=== PATIENT | female | born 1980 | race Caucasian/White ===

== ENCOUNTER → 2016-06-01 | Outpatient (CLI) | payer BC ==
[~2016-06-01] MED LIST: CETI10TA84 PO; ETHY1TAB6 PO; LEVOIUD INT UTER; LXP10 PO; MURENA; NITROGLYCERIN OINT TOP; PRENTAB26 PO; TRAM-453 PO; TRMO2580 TOP
--- NOTE | 2016-06-02 12:48 | MAMMOGRAPHY REPORT ---
BILATERAL FIRST EVER DIGITAL SCREENING MAMMOGRAM TOMOSYNTHESIS WITH CAD: 06/01/2016 CLINICAL HISTORY: Baseline examination. TECHNIQUE: Breast tomosynthesis in addition to standard 2D mammography was performed. Current study was also evaluated with a Computer Aided Detection (CAD) system. COMPARISON: No prior exams were available for comparison. BREAST COMPOSITION: There are scattered areas of fibroglandular density in both breasts. FINDINGS: No suspicious mass, architectural distortion or cluster of microcalcifications is seen. IMPRESSION: ACR BI-RADS CATEGORY 1: NEGATIVE There is no mammographic evidence of malignancy. A 5 year screening mammogram is recommended. The p atient will receive written notification of the results. Approximately 10% of breast cancers are not detected with mammography. A negative mammographic repor t should not delay biopsy if a clinically suggestive mass is present. June barrientos/juan f:06/01/2016 17:10:30 Retail Inventory Control Clerk: Meghan DIOP)(Darnell), [facility] letter sent: Normal 1/2 BI-RADS Code: ACR BI-RADS Category 1: Negative
== END | disposition home or self-care (01) ==
LOC: C.MAMM 15:16
PROVIDERS: ATTEND Plastic Surgery
DX: Z12.31 Encounter for screening mammogram for malignant neoplasm of breast (principal)

== ENCOUNTER 2016-08-04 10:30 | Observation (INO) | payer BC ==
[2016-07-29 09:25] VITALS: BMI 35.0
--- NOTE | 2016-07-29 09:45 | PAT Medication Instructions ---
Service Date Jul 29, 2016. Current Home Medication List Cetirizine (Zyrtec), 10 MG PO QAM Escitalopram Oxalate (Escitalopram Oxalate), 5 MG PO QAM Levonorgestrel (Iud) (Mirena), 1 DOSE INT UTER Triamcinolone Acetonide (Topic (Triamcinolone Acet 0.025%), 1 APPLN TOP PRN [Nitroglycerin Oint], 1 DOSE TOP PRN Medication Instructions For Your Scheduled Surgery - Check with surgeon for instructions: Levonorgestrel (Iud) (Mirena), 1 DOSE INT UTER - Hold the following medications 24 hours prior to surgery: [Nitroglycerin Oint], 1 DOSE TOP PRN Triamcinolone Acetonide (Topic (Triamcinolone Acet 0.025%), 1 APPLN TOP PRN - Hold the following medications the morning of surgery: Cetirizine (Zyrtec), 10 MG PO QAM - Take the following medications the morning of surgery with a sip of water: Escitalopram Oxalate (Escitalopram Oxalate), 5 MG PO QAM If you have any questions please call us at [phone] or [phone] or [phone]
[2016-07-29 10:11] LABS: BASO % 0.3 %; BASO ABS # 0.02 K/uL (0-0.2); COMPLETE YES; HEMATOCRIT 40.5 % (37-47); IG% 0.1 %; LYMPH % 31.8 %; LYMPH ABS # 2.24 K/uL (1.2-3.4); MEAN CELL VOLUME 87.5 fL (80-100); MEAN CORPUSCULAR HEMOGLOBIN 29.8 pg (25-34); MEAN CORPUSCULAR HGB CONC 34.1 g/dl (32-36); MONO % 6.5 %; NEUT % 59.3 %; PLATELET COUNT 281 K/uL (130-400); RED BLOOD COUNT 4.63 M/uL (4.2-5.4); WHITE BLOOD COUNT 7.04 K/uL (4.8-10.8)
[2016-07-29 10:22] LABS: PROTHROMBIN TIME (PATIENT) 10.2 SECONDS (9.0-12.0)
[2016-07-29 12:39] LABS: BUN/CREATININE RATIO 13.4 (10-20); CALCIUM 8.9 mg/dl (8.5-10.1); CREATININE 0.79 mg/dl (0.60-1.20); POTASSIUM 3.8 mmol/L (3.5-5.1)
[~2016-08-04] VITALS: Ht 167.6 cm; Wt 99.9 kg
[2016-08-04] VITALS (8 sets, daily range): BP systolic 101–133; BP diastolic 65–85; PULSE 72–99; TEMP 36.7–37.1; O2SAT 93–98; Ht 167.6 cm; Wt 99.9 kg
[~2016-08-04 10:30] MED LIST changes: +CEFAZOLIN 2000 MG/60 ML D5W IV SCH; +DEXAMETHASONE SOD INJ 4 MG/ML VIAL ONE; +ENOXAPARIN 40 MG/0.4 ML SYR SQ SCH; -ETHY1TAB6 PO; +FENTANYL CITRATE INJ 50 MCG/1 ML 2 ML VIAL ONE; +GLYCOPYRROLATE INJ 0.2 MG/ML VIAL ONE; +LACTATED RINGER'S 1000ML 1,000 ML IV SCH; +LIDOCAINE HCL 2% 2 ML VIAL (20MG/ML) ONE; +MIDAZOLAM HCL 1 MG/ML 2ML VIAL ONE; -MURENA; +NEOSTIGMINE METHYLSULFATE 5 MG/5 ML SYR ONE; +ONDANSETRON INJ 2 MG/ML 2 ML VIAL ONE; -PRENTAB26 PO; +PROPOFOL IV EMULSION 10 MG/ML 20 ML VIAL IV ONE; +ROCURONIUM BROMIDE 10 MG/ML 5 ML VIAL ONE; -TRAM-453 PO
[2016-08-04] MEDS ORDERED: ACETAMINOPHEN 1000 MG/100 ML IV IV ONE (11:47)
[2016-08-04] MEDS ORDERED: LIDOCAINE/EPINEPHRINE 1% 20 ML VIAL ONE (12:17)
[2016-08-04] MEDS ORDERED: CEFAZOLIN SOD 1 GM VIAL ONE (12:18)
[2016-08-04] MEDS ORDERED: BUPIVACAINE 0.25% 30 ML VIAL ONE (12:19)
[2016-08-04] MEDS ORDERED: BACITRACIN 50000 UNIT VIAL ONE (12:19)
--- NOTE | 2016-08-04 12:35 | History & Physical Bridge Note ---
H&P Re-Evaluation Bridge Note: I have examined the patient, reviewed the History & Physical and in the interval since the performance of the History & Physical I have noted the following changes of clinical significance: No changes noted
[2016-08-04] MEDS ORDERED: NALOXONE HCL 0.4 MG/1 ML VIAL/CARP IV PRN (15:00)
[2016-08-04] MEDS ORDERED: ONDANSETRON INJ 2 MG/ML 2 ML VIAL IV PRN ×2 (15:00→16:15)
[2016-08-04] MEDS ORDERED: FLUMAZENIL 0.1 MG/1 ML 10 ML VIAL IV PRN (15:00)
[2016-08-04] MEDS ORDERED: LABETALOL HCL IV 5 MG/ML 20ML IV PRN (15:00)
[2016-08-04] MEDS ORDERED: ATROPINE SULFATE 0.1 MG/ML 5ML SYR IV PRN (15:00)
[2016-08-04] MEDS ORDERED: PROMETHAZINE HCL INJ 12.5 MG in SODIUM CHLORIDE 0.9% 50ML 50 ML IV PRN ×2 (15:00→16:15)
[2016-08-04] MEDS ORDERED: EpHEDrine SULFATE INJ 50 MG/ML AMP IV PRN (15:00)
[2016-08-04] MEDS ORDERED: HYDROmorphone INJ 2 MG/ML SYR/VIAL ONE (15:53)
[2016-08-04] MEDS ORDERED: ONDANSETRON INJ 2 MG/ML 2 ML VIAL ONE (15:53)
--- NOTE | 2016-08-04 16:01 | [facility] Post Operative Brief Note ---
Immediate Operative Summary Operative Date Aug 04, 2016. Pre-Operative Diagnosis Bilateral breast hypertrophy Post-Operative Diagnosis Same as preoperative diagnosis Procedure(s) Performed Bilateral Symptomatic Breast Reduction Surgeon Dr. Argelia Perez Restorative Care Technician Surgeon(s) Nicolle Díaz PA-C Estimated Blood Loss 50ML Findings B/L NACs pink and viable bilaterally Specimens A. left breast skin and tissue weight 648 grams B. right breast skin and tissue weight 636 grams Drains WEN x2 Anesthesia GET Complication(s) None Disposition Recovery Room / PACU
[2016-08-04] MEDS ORDERED: OXYCODONE/ACETAMINOPHEN 5-325 TAB PO PRN (16:15)
[2016-08-04] MEDS ORDERED: OXAZEPAM 10MG CAP PO PRN (16:15)
[2016-08-04] MEDS ORDERED: DiphenhydrAMINE HCL 50 MG/ML VIAL IV PRN (16:15)
[2016-08-04] MEDS ORDERED: MoRPHine SULFATE 2 MG/ML CARP IV PRN ×3 (16:15)
[2016-08-04] MEDS: HYDROmorphone INJ 1 MG/ML SYR IV PRN ×2 (16:30→16:35)
[2016-08-04] MEDS ORDERED: IV FLUIDS COMPLETED PRN (16:30)
--- NOTE | 2016-08-04 16:48 | Anesthesiology Progress Note ---
Anesthesia Post Op Note Date & Time Aug 04, 2016 at 16:48 Vital Signs Pain Intensity: 4 Vital Signs Past 12 Hours Date Time Temp Pulse Resp B/P (MAP) Pulse Ox O2 Delivery O2 Flow Rate FiO2 08/04/16 16:45 95 18 126/76 100 Oxymask 3 08/04/16 16:35 100 18 124/81 100 Oxymask 5 08/04/16 16:25 100 12 126/73 100 Oxymask 10 08/04/16 16:15 36.2 104 12 122/82 100 Oxymask 10 08/04/16 11:07 37.1 72 18 104/72 (83) 97 Room Air Notes Mental Status: alert / awake / arousable, participated in evaluation Pt Amnestic to Procedure: Yes Nausea / Vomiting: adequately controlled Pain: adequately controlled Airway Patency, RR, SpO2: stable & adequate BP & HR: stable & adequate Hydration State: stable & adequate Anesthetic Complications: no major complications apparent
[2016-08-04] MEDS: LACTATED RINGER'S 1000ML 1,000 ML IV SCH (19:02)
[2016-08-04] MEDS: OXYCODONE/ACETAMINOPHEN 5-325 TAB PO PRN (19:03)
--- NOTE | 2016-08-04 19:52 | Progress Note ---
Progress Note Date of Service Aug 04, 2016. Progress Note Post op check Doing well. Complains of right breast pain, incisional burning afebrile VSS Dressings c/d/i NACs pink and viable bilaterally, sensation intact No hematomas JPs minimal, serosanguinous Stable post op observe overnight
[2016-08-04] MEDS: CEFAZOLIN IV 2,000 MG in DEXTROSE 5% 50ML 50 ML IV SCH (20:24)
[2016-08-04] MEDS: ACETAMINOPHEN 325 MG TAB PO PRN (23:51)
[2016-08-05 03:11] VITALS: BP 108/68; PULSE 77; TEMP 36.8; O2SAT 94
[2016-08-05] MEDS: CEFAZOLIN IV 2,000 MG in DEXTROSE 5% 50ML 50 ML IV SCH (03:56)
[2016-08-05] MEDS: LACTATED RINGER'S 1000ML 1,000 ML IV SCH ×2 (03:57→16:42)
[2016-08-05 06:58] VITALS: BP 109/76; PULSE 66; TEMP 36.8; O2SAT 97
[2016-08-05 07:15] VITALS: BP 96/63; PULSE 66
--- NOTE | 2016-08-05 07:56 | Anesthesiology Progress Note ---
Anesthesia Post Op Note Date & Time Aug 05, 2016 at 07:54 Vital Signs Pain Intensity: 2.0 Vital Signs Past 12 Hours Date Time Temp Pulse Resp B/P (MAP) Pulse Ox O2 Delivery O2 Flow Rate FiO2 08/05/16 07:42 Room Air 08/05/16 03:11 36.8 77 14 108/68 (81) 94 Room Air 08/05/16 00:00 Room Air 08/04/16 23:23 36.7 82 16 101/65 (77) 93 Room Air 08/04/16 20:18 36.7 82 16 110/69 (83) 94 Room Air Notes Mental Status: alert / awake / arousable, participated in evaluation Pt Amnestic to Procedure: Yes Nausea / Vomiting: adequately controlled Pain: adequately controlled Airway Patency, RR, SpO2: stable & adequate BP & HR: stable & adequate Hydration State: stable & adequate Anesthetic Complications: no major complications apparent Pt states that she did well with anesthesia - denies any PONV. However she has been light headed upon standing since surgery. She states that she has even passed out. Nurse was in the room at this time and stated that her blood pressure has been low but that it is normal for the patient. Patient has been getting IV fluids as well as eating and drinking. Medicine is following.
--- NOTE | 2016-08-05 08:00 | Surgery Progress Note ---
Surgery Progress Note Date of Service Aug 05, 2016. Subjective Post OP Day: 1 + feeling well, + pain controlled, + diet (regular), No nausea, No vomiting patient reports syncopal episode this AM. States she has gotten out of bed once since surgery and almost immediately felt lightheaded. Is tolerating regular diet and pain controlled on acetaminophen Objective Vital Signs: Date Time Temp Pulse Resp B/P (MAP) Pulse Ox O2 Delivery O2 Flow Rate FiO2 08/05/16 07:42 Room Air 08/05/16 07:15 66 16 96/63 (74) 08/05/16 06:58 36.8 66 16 109/76 (87) 97 Room Air 08/05/16 03:11 36.8 77 14 108/68 (81) 94 Room Air 08/05/16 00:00 Room Air 08/04/16 23:23 36.7 82 16 101/65 (77) 93 Room Air 08/04/16 20:18 36.7 82 16 110/69 (83) 94 Room Air 08/04/16 19:14 36.8 90 16 119/68 (85) 95 Room Air 08/04/16 18:15 36.8 93 16 133/77 (95) 94 Room Air 08/04/16 17:49 36.8 91 18 123/79 (94) 93 Room Air 08/04/16 17:30 98 Room Air 08/04/16 17:16 36.9 99 18 128/85 (99) 98 Nasal Cannula 08/04/16 17:15 Room Air Oxymask 08/04/16 17:05 92 18 116/81 100 Oxymask 3 08/04/16 16:55 36.3 89 18 125/77 100 Oxymask 3 08/04/16 16:45 95 18 126/76 100 Oxymask 3 08/04/16 16:35 100 18 124/81 100 Oxymask 5 08/04/16 16:25 100 12 126/73 100 Oxymask 10 08/04/16 16:15 36.2 104 12 122/82 100 Oxymask 10 08/04/16 11:07 37.1 72 18 104/72 (83) 97 Room Air Physical Exam: Lavell drainage (scant serous and bloody drainage) General Appearance: WD/WN, no apparent distress Incision(s): clean, dry, intact, no erythema, findings (nipples pink with sensation bilaterally ) Laboratory Results: Results Past 24 Hours Test 08/04/16 11:27 Range/Units Bedside Urine Test NEG NEG Assessment & Plan s/p bilateral breast reduction 1. syncopal episode this AM. Will check CBC, BMP and orthostatic BP. If normal and patient able to ambulate in halls OK later today can go home 2. drains removed
--- NOTE | 2016-08-05 08:02 | Discharge Instructions ---
Discharge Instructions Date of Service Aug 05, 2016. Admission Reason for Admission: Breast Hypertrophy Discharge Discharge Diagnosis / Problem: breast hypertrophy Discharge Goals Goal(s): Decrease discomfort Activity Recommendations Activity Limitations: per Instructions/Follow-up section ACTIVITY RECOMMENDATIONS: __Normal activities _x_No bending, lifting or straining __No driving __Driving allowed when you are off pain medications _x_Walking permitted __You should have help at home for ___ days DRESSINGS: __No dressings required _x_Keep dressings dry/in place until first office visit __Remove dressings ___ and leave dressings off __Apply ice ___ days __Remove dressings and reapply garment __Apply antibiotic ointment (Bacitracin, Neosporin, etc) to wounds 3-4 times/ day for 10 days BATHING: _x_Keep dressings dry _x_Sponge bathing permitted __Showering permitted _x_No swimming, hot tubs or soaking in a tub MEDICATIONS: Resume previous medications unless instructed otherwise by your surgeon. _x_Do not use aspirin, Motrin, Advil or Ibuprofen as these may promote bleeding. Please use Tylenol. _x_Prescription(s) provided: percocet was provided at your last office visit OTHER INSTRUCTIONS: __Record drain output 2-3 times per day SPECIAL CARE INSTRUCTIONS: * It is normal to have a mild fever after surgery. If your temperature is higher than 101.5 degrees F, please call the office at [phone]. * Constipation is a typical side effect of pain medication. An over-the- counter stool softener will help relieve this. * Leaking around surgical drains may occur and should not cause concern. Sometimes these drains become clogged. If this happens, remove the bulb and milk the clot out of the tube, then replace the bulb. * Drainage from wounds after liposuction is normal and should be expected. Garments will become soiled. You should protect furniture and bedding. This drainage should mostly subside within 2-3 days. Leave garments in place unless instructed to remove them. * If you have unusual drainage from a wound or are concerned you have an infection or have any questions or concerns, please call the office at [phone]. FOLLOW UP VISIT: If not already scheduled, please call the office, , when you return home after surgery to schedule an appointment to be seen in __1_ days. . Current Hospital Diet Patient's current hospital diet: Regular Diet Discharge Diet Recommended Diet: Regular Diet Procedures Procedures Performed: Bilateral Symptomatic Breast Reduction Pending Studies Studies pending at discharge: yes List of pending studies: pathology Medical Emergencies . Who to Call and When: Medical Emergencies: If at any time you feel your situation is an emergency, please call 911 immediately. . Non-Emergent Contact Non-Emergency issues call your: Primary Care Provider, Surgeon . "Provider Documentation" section prepared by Nicolle Díaz. . VTE Core Measure Inpt VTE Proph given/why not?: Enoxaparin (Lovenox)SQ, SCD's [place] Drug Monitoring Program Search Results: no issues identified
[2016-08-05] MEDS: ENOXAPARIN 40 MG/0.4 ML SYR SQ SCH (08:09)
[2016-08-05] MEDS: MULTIVITAMIN TAB PO SCH (08:09)
[2016-08-05] MEDS: CETIRIZINE HCL 10 MG TAB PO SCH (08:10)
[2016-08-05] MEDS: ESCITALOPRAM OXALATE 10 MG TAB PO SCH (08:10)
[2016-08-05 08:23] LABS: HEMATOCRIT 40.3 % (37-47); IG% 0.3 %; LYMPH % 13.5 %; LYMPH ABS # 1.59 K/uL (1.2-3.4); MEAN CORPUSCULAR HEMOGLOBIN 28.9 pg (25-34); MEAN PLATELET VOLUME 8.7 fL (7.4-10.4); MONO % 6.7 %; NEUT % 79.5 %; PLATELET COUNT 286 K/uL (130-400); RED BLOOD COUNT 4.63 M/uL (4.2-5.4); WHITE BLOOD COUNT 11.76 K/uL (4.8-10.8)
[2016-08-05 08:33] LABS: COMPLETE YES; MEAN CORPUSCULAR HGB CONC 33.3 g/dl (32-36)
[2016-08-05 08:46] LABS: CALCIUM 8.5 mg/dl (8.5-10.1); CREATININE 0.87 mg/dl (0.60-1.20); POTASSIUM 3.8 mmol/L (3.5-5.1)
[2016-08-05] MEDS: ACETAMINOPHEN 325 MG TAB PO PRN ×2 (09:01→13:20)
--- NOTE | 2016-08-05 09:48 | OPERATIVE REPORT ---
DATE OF OPERATION: 08/04/2016 PREOPERATIVE DIAGNOSIS: Bilateral symptomatic macromastia. POSTOPERATIVE DIAGNOSIS: Same. PROCEDURE: Bilateral reduction mammoplasty. SURGEON: Dr. Argelia Perez. HORSE EXERCISER: Nicolle Díaz PA-C. ANESTHESIA: General. COMPLICATIONS: None. INDICATION FOR THE PROCEDURE: The patient is a 36-year-old female who presented to my office with complaints of large breasts, wearing a 36 I bra, back, neck and shoulder pain. BRIEF DESCRIPTION OF THE PROCEDURE: The risks, benefits and alternatives of the procedure were explained to the patient, who agreed and signed consent. She was identified and marked in the preoperative holding area. She was brought to the operating room, where she was positioned supine and placed under anesthesia without incident. Surgical site was prepped and draped sterilely. A time-out procedure was performed. I began with the left side, which was the larger of the 2 breasts. Markings were reassessed and a 7-cm pedicle was marked. 1% lidocaine with epinephrine was used to anesthetize the planned incisions. A 38-mm cookie cutter was used to circumscribe the nipple-areolar complex. Previously marked 7-cm pedicle was incised using a 15 blade scalpel and de-epithelized. I began with medial dissection of the pedicle using electrocautery. Cautery was used to incise through dermis and breast parenchyma down the chest wall, taking care not to undermine the pedicle during dissection. A similar procedure was undertaken on the lateral aspect of the pedicle again taking care not to undermine. Lastly, the pedicle was dissected out superiorly using electrocautery. This was carried down to chest wall. I then began excision of the medial breast tissue followed by lateral aspect of the breast tissue. A 15 blade scalpel was used to make the inframammary fold incision. Electrocautery was used to deepen the incision through dermis and breast parenchyma. Dissection was then carried superiorly to the level of the superior incision. Superior incision was then incised using a 15 blade scalpel and again dissected using electrocautery. A similar procedure was undertaken laterally and then around the keyhole portion of the incision. Care was taken to leave some fat on the lateral pectoral fascia in order to protect the T4 intercostal nerve. Hemostasis was achieved with electrocautery. Specimen was removed in its entirety and passed off for weighing. Additional resection was undertaken until maximal resection weight of 648 grams was achieved on the left side and there was uniform pedicle and flap. Wound was irrigated with normal saline. Hemostasis was achieved with electrocautery. 0.25% Marcaine plain was used to anesthetize the incisions as well as the pectoralis fascia. A 15-Occitan Lavell drain was brought out through a separate stab incision. The nipple-areolar complex was advanced into the keyhole using 2-0 Vicryl deep dermal suture. The wound was first closed in a lateral to mid breast direction using 2-0 Vicryl deep dermals and then medial to mid breast using 2-0 Vicryl deep dermals. The vertical limb was also approximated using 2-0 Vicryl deep dermal sutures. The nipple-areolar complex was inset using 2-0 Vicryl deep dermal sutures. Next, the superficial dermal layer was closed using 2-0 PDO running Quill suture along the inframammary fold and 3-0 PDS for the vertical limb and nipple-areolar complex closures. Lastly, a 3-0 Monocryl running subcuticular suture was placed. A similar procedure was undertaken on the right side with maximal resection of weight of 636 grams. At the end of the case, both nipple-areolar complexes were pink and viable without evidence of vascular compromise. The breasts appeared reasonably symmetric. Dermabond Prineo was placed along the inframammary fold and vertical limb incisions, Dermabond was placed around the nipple-areolar complex. Dry dressings and a surgical bra were placed. The patient was awakened and transferred to recovery room in satisfactory condition. Nicolle Díaz was present and scrubbed for the entire procedure and was instrumental in providing retraction during dissection of the pedicle as well as assisting in simultaneous wound closure. I attest to the content of the Intraoperative Record and any orders documented therein. Any exception s are noted below.
[2016-08-05 12:26] VITALS: BP_SYST 108; BP_SYST 112; BP_SYST 120; BP_DIAS 68; BP_DIAS 76; PULSE 76; PULSE 78; PULSE 81; TEMP 37.1; O2SAT 95
[2016-08-05 15:44] VITALS: BP 106/70; PULSE 89; TEMP 37; O2SAT 97
[2016-08-05] MEDS ORDERED: NURSING VERBAL MED ORDER ONE ×2 (16:00→18:30)
[2016-08-05] MEDS: OXYCODONE/ACETAMINOPHEN 5-325 TAB PO PRN (17:49)
--- NOTE | 2016-08-05 19:51 | Progress Note ---
Progress Note Date of Service Aug 05, 2016. Progress Note Patient seen at bedside this evening. Discharge canceled due to complaints of dizziness. Will discontinue Percocet, add Ultram AVSS (orthostatic BPs ok) bilateral breasts with intact incisions, no evidence for hematomas NACs pink and viable bilaterally Hgb 13.4 ? dizziness due to residual effects of anesthesia or narcotics continued observation will plan for discharge tomorrow if improved
[2016-08-05 22:59] VITALS: BP 109/70; PULSE 79; TEMP 36.9; O2SAT 95
[2016-08-05] MEDS: TRAMADOL HCL 50 MG TAB PO PRN (23:33)
[2016-08-06] MEDS: TRAMADOL HCL 50 MG TAB PO PRN ×2 (05:46→11:20)
[2016-08-06 07:37] VITALS: BP 107/70; PULSE 74; TEMP 37; O2SAT 96
--- NOTE | 2016-08-06 08:52 | Surgery Progress Note ---
Surgery Progress Note Date of Service Aug 06, 2016. Subjective Post OP Day: 2 + feeling well, + pain controlled, No complaints, No nausea, No vomiting Objective Vital Signs: Date Time Temp Pulse Resp B/P (MAP) Pulse Ox O2 Delivery O2 Flow Rate FiO2 08/06/16 07:53 Room Air 08/06/16 07:37 37.0 74 16 107/70 (82) 96 Room Air 08/05/16 23:26 Room Air 08/05/16 22:59 36.9 79 16 109/70 (83) 95 Room Air 08/05/16 20:10 Room Air 08/05/16 15:44 37.0 89 16 106/70 (82) 97 Room Air 08/05/16 12:26 37.1 76 16 112/68 (83) 95 Room Air 78 120/76 (91) 81 108/76 (87) General Appearance: WD/WN, no apparent distress Incision(s): clean, dry, intact, no erythema, no drainage Assessment & Plan s/p bilateral breast reduction 1. patient no longer feels lightheaded. will d/c home today 2. we reviewed post-op instructions and all questions answered 3. will send patient home with [facility]
[2016-08-06] MEDS ORDERED: TRAM-453 PO (08:55)
[2016-08-06] MEDS: MULTIVITAMIN TAB PO SCH (09:05)
[2016-08-06] MEDS: ESCITALOPRAM OXALATE 10 MG TAB PO SCH (09:05)
[2016-08-06] MEDS: CETIRIZINE HCL 10 MG TAB PO SCH (09:06)
[2016-08-06] MEDS: ENOXAPARIN 40 MG/0.4 ML SYR SQ SCH (09:06)
--- NOTE | 2016-08-06 09:13 | Discharge Summary ---
Discharge Summary Date of Service Aug 06, 2016. Admission Date/Reason Aug 04, 2016 at 11:10 Breast Hypertrophy. Discharge Date/Disposition Aug 05, 2016 Home Diagnosis Principal Diagnosis: breast hypertrophy Procedure(s) Performed bilateral breast reduction Medication Reconciliation New Medications: Tramadol Hcl (Ultram) 50 Mg Tab 1 TAB PO Q6H PRN for Pain for 7 Days, #30 TAB Continued Medications: Cetirizine (Zyrtec) 10 Mg Tab 10 MG PO QAM, TAB Escitalopram Oxalate (Escitalopram Oxalate) 10 Mg Tab 5 MG PO QAM Levonorgestrel (Iud) (Mirena) 20 Mcg/24 Hr Iud 1 DOSE INT UTER Triamcinolone Acetonide (Topic (Triamcinolone Acet 0.025%) 0.025 % Oin 1 APPLN TOP PRN, #15 GM 1 Refill [Nitroglycerin Oint] () 1 DOSE TOP PRN Admission Physical Exam As per Admitting History & Physical. Hospital Course Patient presented to same day surgery with history of symptomatic macromastia. She was taken to the OR and underwent bilateral breast reduction. Two elizabeth drains were placed intraoperatively. She tolerated the procedure well and was taken to recovery. On POD#1 patient had good pain control and was tolerating a regular diet. However, she had a syncopal episode in the AM while ambulating. CBC/diff, BMP and orthostatic vitals were ordered on patient and all within expected range. She continued to feel better as the day went on. On POD#2 she no longer felt lightheaded and was ambulating without difficulty. On exam, her dressings were removed revealing healing, clean, dry and intact incisions. She was discharged home in stable condition with instructions to follow-up in the office for suture removal. Discharge Instructions Please refer to the electronic Patient Visit Report (Discharge Instructions) for additional information.
[2016-08-06 10:57] VITALS: BP 107/70; PULSE 74; TEMP 37; O2SAT 96
== END 2016-08-06 12:15 | disposition home or self-care (01) ==
LOC: C.ACU 10:30 → C.MSW 11:10 → ENRESERV 16:58 → C.MSW 08-05 14:35
PROVIDERS: ADMIT Plastic Surgery; ATTEND Plastic Surgery
DX: N62 Hypertrophy of breast (principal); Z97.5 Presence of (intrauterine) contraceptive device; E66.9 Obesity, unspecified; J45.909 Unspecified asthma, uncomplicated; Z90.89 Acquired absence of other organs; Z82.49 Family history of ischemic heart disease and other diseases of the circulatory system; Z83.3 Family history of diabetes mellitus; F32.9 Major depressive disorder, single episode, unspecified

== ENCOUNTER 2019-07-30 04:49 | Observation (INO) ==
--- NOTE | 2019-07-30 05:05 | Emergency Department Note ---
Impression & Plan Abdominal pain ED Provider Note NAME: JENNIFER HU AGE: 39 SEX: F ARRIVES VIA: Walk-In INFORMANT: [Patient] ED PROVIDER(S): Yolande Broderick DO CHIEF COMPLAINT: Abdominal pain PLAN: Disposition: The patient was signed out to Dr. Carver awaiting CT scan of the abdomen/pelvis MEDICAL DECISION MAKING: This is a 39-year-old female patient who presents to the emergency department 3 weeks with severe abdominal pain. Patient was given IV Dilaudid and IV Zofran with moderate relief of her discomfort. Urinalysis shows signs of urinary tract infection. She went for ultrasound of the uterus which showed an empty uterus but moderate complex fluid around the uterus. The patient remains hemodynamically stable. She will go for CT scan of the abdomen/pelvis to further evaluate the fluid, the uterus and the fallopian tubes. The case was signed out to Dr. Carver awaiting that test. Triage Nursing notes reviewed and agree them. [Prior medical records reviewed] Vital Signs: reviewed and unremarkable Differential diagnosis: Endometritis, retained products of conception, sepsis, cystitis ER treatment provided: IV Dilaudid, IV normal saline, IV Zofran Cardiac Monitoring: Normal sinus rhythm at a rate of 65. Laboratory studies: [See below] Imaging studies: As per radiology US pelvic limited CLINICAL HISTORY: eval -retained products COMPARISON STUDY: CT of the abdomen and pelvis April 26, 2014. OB ultrasound May 16, 2019. TECHNIQUE: Transabdominal sonography of the pelvis was performed. Transvaginal imaging was deferred in this patient. FINDINGS: Uterus measures 12.7 x 5.6 x 7 cm. The endometrium is normal in thickness, measuring 5 mm. No increased vascularity within the endometrium is noted. Note is made of apparent complex fluid collections adjacent to the uterus. A hypoechoic fluid collection posterior to the uterus measures 8.4 x 4 cm. A more complex mixed echogenicity fluid collection anterior to the uterus measures 6.5 x 1.9 cm. Less likely, these could reflect dilated tubes. The ovari es are sonographically unremarkable. Right ovary measures 2.7 x 2.2 x 2.2 cm and the left ovary measures 2.5 x 2 x 2.1 cm. IMPRESSION: 1. Complex fluid collections adjacent to the uterus, as described above. These are nonspecific although favor hematomas. Dilated fallopian tubes could appear similar but are considered less likely. Uterine rupture is within the differential but also considered unlikely given lack of previous section. A CT of the pelvis is recommended. Findings discussed with Dr. Broderick at time of dictation. 2. Normal endometrial thickness. No evidence of retained products. 3. Normal sonographic appearance of the ovaries on transabdominal exam. HPI: 39/F arrives for evaluation of severe abdominal pain. The patient is 3 weeks . This is her second vaginal delivery. She had a normal course until 5 days ago when she started to develop some suprapubic abdominal pain. Patient states that the pain has worsened over the past 5 days and became much more severe last night to the point that she had difficulty moving about. The patient awoke this morning with chills and unable to picker/puller the child. She delivered the baby by vaginal delivery with no complications. She was strep positive and received IV antibiotics at the delivery. ROS: See above HPI for pertinent positives & negatives. A total of [10] systems reviewed and were otherwise negative. PAST MEDICAL HISTORY:[See Below] PAST SURGICAL HISTORY:[See Below] FAMILY HISTORY:[See Below] SOCIAL HISTORY:[See Below] HOME MEDICATIONS:See list ALLERGIES:None VITALS:[See Below] PHYSICAL EXAMINATION: HEENT: Head - normocephalic and atraumatic Pupils are equal, round, and reactive to light. Extraocular eye muscles are intact, and sclera are an icteric. Nose - moist nasal mucosa without discharge. Mouth - moist buccal mucosa. Oropharynx is nonerythematous and there is no tonsillar exudate or edema noted. Neck: Supple; no cervical lymphadenopathy Heart: Regular rate and rhythm. There is a normal S1 and S2 with no murmurs, clicks, or gallops appreciated. Lungs: Clear to auscultation bilaterally with no wheezes, rales, or rhonchi. Abdomen: Soft, moderately distended and diffuse tenderness in the suprapubic region. With good bowel sounds. There are no palpable pulsatile masses or hepatosplenomegaly. There is no guarding, rigidity, or rebound noted. Extremities: No evidence of cyanosis, clubbing, or edema. There are easily palp able peripheral pulses. Skin: Pale, warm and dry with good turgor and no rashes. ED COURSE: 0510: The patient was evaluated in room C8. A complete history and physical was performed. Laboratory studies were drawn as above. An IV lock was initiated. Previous electronic medical records were reviewed. An order was placed for continuous cardiac monitoring. The patient was in a normal sinus rhythm at a rate of 85. The patient was given a milligram of IV Dilaudid and 4 mg of IV Zofran along with 500 cc bolus of normal saline solution. A urine specimen was collected. 0610: The patient is resting comfortably. She has had significant relief of her discomfort with the IV pain medications. Patient is somewhat pale on physical exam. I repeated her blood pressure and it was 116 systolically with a pulse of 70. She is waiting to go to ultrasound. She will go for a pelvic ultrasound. 0725: I reviewed the results of the ultrasound with the patient. She remains hemodynamically stable at this time. An IV normal saline drip was started. I explained to her that she will go back for CT scan of the abdomen/pelvis further characterize this complex fluid that surrounds the uterus. The case was signed out to Dr. Carver. 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 Feels Safe at Home: Yes Smoking Status: Never smoker Hx Alcohol Use: No Hx Substance Use: No Allergies Allergies Allergy/AdvReac Type Severity Reaction Status Date / Time No Known Drug Allergies Allergy none Verified 07/30/19 05:36 Home Meds Home Medications Medication Instructions Recorded Confirmed escitalopram oxalate 10 mg tablet 10 mg PO DAILY 11/24/18 07/30/19 multivitamin,jz-xdsz-aqvaimqv 1 tab PO DAILY 11/24/18 07/30/19 cholecalciferol (vitamin D3) 125 5,000 units PO DAILY 02/23/19 07/30/19 mcg (5,000 unit) capsule Zyrtec 10 mg PO DAILY 05/05/19 07/30/19 bbikqapjmo-xjwowjcmnpnky-ydri 1 tab PO Q6H PRN 07/30/19 07/30/19 Results & Data (ED) Vital Signs Vital Signs - 24 hr 07/30/19 04:53 07/30/19 05:56 07/30/19 06:00 Temperature 36.5 C Temperature Source Oral Pulse Rate 85 70 64 Pulse Rate [Finger] Pulse Rate from SpO2 Sensor 72 67 Pulse Rhythm Regular Pulse Strength Normal Respiratory Rate 20 15 16 Respiratory Effort / Characteristics Non-Labored Spontaneous Respiratory Depth Normal Respiratory Pattern Regular Blood Pressure 105/72 116/60 109/61 Blood Pressure [Right Arm] Blood Pressure Mean 83 82 67 Blood Pressure Mean [Right Arm] Blood Pressure Position Sitting Pulse Oximetry 99 98 98 Oxygen Delivery Method Room Air Room Air Room Air Sepsis Recent Fever Within 48 Hours No Sepsis Action Taken by Nursing No Action Required 07/30/19 06:09 07/30/19 06:30 07/30/19 07:25 Temperature Temperature Source Pulse Rate 72 65 Pulse Rate [Finger] 64 Pulse Rate from SpO2 Sensor 69 Pulse Rhythm Pulse Strength Respiratory Rate 21 17 16 Respiratory Effort / Characteristics Respiratory Depth Respiratory Pattern Blood Pressure 113/67 116/67 Blood Pressure [Right Arm] 126/74 Blood Pressure Mean 82 72 Blood Pressure Mean [Right Arm] 91 Blood Pressure Position Pulse Oximetry 97 97 97 Oxygen Delivery Method Room Air Room Air Room Air Sepsis Recent Fever Within 48 Hours Sepsis Action Taken by Nursing Laboratory Data Result diagrams: 07/30/19 05:43 07/30/19 05:43 Lab Results 07/30/19 07/30/19 07/30/19 Range/Units 05:10 05:43 05:43 WBC 11.74 H (4.8-10.8) K/uL RBC 4.41 (4.2-5.4) M/uL Hgb 12.8 (12.0-16.0) g/dL Hct 39.1 (37-47) % MCV 88.7 (80-100) fL MCH 29.0 (25-34) pg MCHC 32.7 (32-36) g/dL RDW Std Deviation 42.6 (36.4-46.3) fL RDW Coeff of Sally 13.0 (11.5-14.5) % Plt Count 288 (130-400) K/uL MPV 9.2 (7.4-10.4) fL Immature Gran % (Auto) 0.2 % Neut % (Auto) 81.3 % Lymph % (Auto) 10.8 % [place] % (Auto) 6.6 % Eos % (Auto) 0.9 % Baso % (Auto) 0.2 % Immature Gran # (Auto) 0.02 (0.00-0.02) K/uL Neut # (Auto) 9.56 H (1.4-6.5) K/uL Lymph # (Auto) 1.27 (1.2-3.4) K/uL [place] # (Auto) 0.77 H (0.11-0.59) K/uL Eos # (Auto) 0.10 (0-0.5) K/uL Baso # (Auto) 0.02 (0-0.2) K/uL Sodium 141 (136-145) mmol/L Potassium 3.8 (3.5-5.1) mmol/L Chloride 110 H (98-107) mmol/L Carbon Dioxide 23 (21-32) mmol/L Anion Gap 8.0 (3-11) BUN 8 (7-18) mg/dl Creatinine 0.75 (0.6-1.2) mg/dl Est Cr Clr Drug Dosing 132.0 ml/min Est GFR ( Amer) 117.2 Est GFR (Non-Af Amer) 101.1 BUN/Creatinine Ratio 11.3 (10-20) Glucose 96 (70-99) mg/dl Lactate (0.4-2.0) mmol/L Calcium 8.3 L (8.5-10.1) mg/dl Total Bilirubin 0.4 (0.2-1) mg/dl AST 23 (15-37) U/L ALT 35 (12-78) U/L Alkaline Phosphatase 71 (45-117) U/L Total Protein 6.9 (6.4-8.2) gm/dl Albumin 3.2 L (3.4-5.0) gm/dl Globulin 3.7 (2.5-4.0) gm/dl Albumin/Globulin Ratio 0.9 (0.9-2) Specimen Hemolysis Urine Color Yellow Urine Appearance Cloudy A (Clear) Urine pH 6.0 (4.5-7.5) Ur Specific [place] 1.025 (1.000-1.030) Urine Protein 1+ H (Negative) Urine Glucose (UA) Negative (Negative) Urine Ketones Trace H (Negative) Urine Blood 2+ H (Negative) Urine Nitrite Negative (Negative) Urine Bilirubin Negative (Negative) Urine Urobilinogen Negative (Negative) Ur Leukocyte Esterase 2+ H (Negative) Urine WBC (Auto) >30 H (0-5) /hpf Urine RBC (Auto) 10-30 H (0-4) /hpf U Hyaline Cast (Auto) 10-30 H (0-5) /lpf U Epithel Cells (Auto) >30 H (0-5) /lpf Urine Bacteria (Auto) Negative (Negative) 07/30/19 Range/Units 05:43 WBC (4.8-10.8) K/uL RBC (4.2-5.4) M/uL Hgb (12.0-16.0) g/dL Hct (37-47) % MCV (80-100) fL MCH (25-34) pg MCHC (32-36) g/dL RDW Std Deviation (36.4-46.3) fL RDW Coeff of Sally (11.5-14.5) % Plt Count (130-400) K/uL MPV (7.4-10.4) fL Immature Gran % (Auto) % Neut % (Auto) % Lymph % (Auto) % [place] % (Auto) % Eos % (Auto) % Baso % (Auto) % Immature Gran # (Auto) (0.00-0.02) K/uL Neut # (Auto) (1.4-6.5) K/uL Lymph # (Auto) (1.2-3.4) K/uL [place] # (Auto) (0.11-0.59) K/uL Eos # (Auto) (0-0.5) K/uL Baso # (Auto) (0-0.2) K/uL Sodium (136-145) mmol/L Potassium (3.5-5.1) mmol/L Chloride (98-107) mmol/L Carbon Dioxide (21-32) mmol/L Anion Gap (3-11) BUN (7-18) mg/dl Creatinine (0.6-1.2) mg/dl Est Cr Clr Drug Dosing ml/min Est GFR ( Amer) Est GFR (Non-Af Amer) BUN/Creatinine Ratio (10-20) Glucose (70-99) mg/dl Lactate 1.7 (0.4-2.0) mmol/L Calcium (8.5-10.1) mg/dl Total Bilirubin (0.2-1) mg/dl AST (15-37) U/L ALT (12-78) U/L Alkaline Phosphatase (45-117) U/L Total Protein (6.4-8.2) gm/dl Albumin (3.4-5.0) gm/dl Globulin (2.5-4.0) gm/dl Albumin/Globulin Ratio (0.9-2) Specimen Hemolysis Urine Color Urine Appearance (Clear) Urine pH (4.5-7.5) Ur Specific [place] (1.000-1.030) Urine Protein (Negative) Urine Glucose (UA) (Negative) Urine Ketones (Negative) Urine Blood (Negative) Urine Nitrite (Negative) Urine Bilirubin (Negative) Urine Urobilinogen (Negative) Ur Leukocyte Esterase (Negative) Urine WBC (Auto) (0-5) /hpf Urine RBC (Auto) (0-4) /hpf U Hyaline Cast (Auto) (0-5) /lpf U Epithel Cells (Auto) (0-5) /lpf Urine Bacteria (Auto) (Negative) Administered Medications Sodium Chloride (Nss) 500 mls @ 125 mls/hr IV .Q4H SCHUYLER Stop: 08/29/19 07:29 Last Admin: 07/30/19 07:35 Dose: 125 mls/hr Documented by: [id number] Discontinued Medications Hydromorphone HCl (Dilaudid) 1 mg IV NOW STA Stop: 07/30/19 05:21 Last Admin: 07/30/19 05:48 Dose: 1 mg Documented by: [id number] Sodium Chloride (Nss) 500 mls @ 999 mls/hr IV .Q31M ONE Stop: 07/30/19 05:50 Last Infusion: 07/30/19 06:27 Dose: 0 mls/hr Documented by: [id number] Admin: 07/30/19 05:49 Dose: 999 mls/hr Documented by: [id number] Ondansetron HCl (Zofran) 4 mg IV NOW STA Stop: 07/30/19 05:21 Last Admin: 07/30/19 05:47 Dose: 4 mg Documented by: [id number] Discharge Plan Visit Data Chief Complaint: Abdominal Pain Stated Complaint: SEVERE LOWER ABD PAIN, 3WKS POST ED Provider: Niko Carver Discharge Problem: Abdominal pain Forms Stand Alone Forms: [facility] Prescriptions Prescriptions: No Action Complete Multivitamin tablet 1 tab PO DAILY RF: 0 escitalopram oxalate [Lexapro] 10 mg tablet 10 mg PO DAILY RF: 0 cholecalciferol (vitamin D3) 5,000 unit capsule 5,000 units PO DAILY RF: 0 gjobmsnbub-lsjytbhupfyui-yyet 50-325-40 mg tablet 1 tab PO Q6H PRN (Reason: Migraine Headache) RF: 0 Zyrtec 10 mg Capsule 10 mg PO DAILY RF: 0 Discharge Problem: Abdominal pain Qualifiers: Abdominal location: lower abdomen, unspecified Qualified Code(s): R10.30 - Lower abdominal pain, unspecified
[2019-07-30] MEDS ORDERED: HYDROmorphone INJ 1 MG/ML SYRINGE IV STA ×2 (05:20→08:04)
[2019-07-30] MEDS ORDERED: SODIUM CHLORIDE 0.9% 500 ML IV ONE (05:20)
[2019-07-30] MEDS ORDERED: ONDANSETRON INJ 2 MG/ML 2 ML VIAL IV STA (05:20)
[2019-07-30 05:37] LABS: Appearance Urine Cloudy (Clear); Bacteria Urine Automated Negative (Negative); Bilirubin Urine Negative (Negative); Blood Urine 2+ (Negative); Color Urine Yellow; Epithelial Cell Urine Auto >30 /lpf (0-5); Glucose Urine UA Negative (Negative); Ketones Urine Trace (Negative); Leukocyte Esterase Urine 2+ (Negative); Nitrite Urine Negative (Negative); Protein Urine 1+ (Negative); Specific Gravity Urine 1.025 (1.000-1.030); Urobilinogen Urine Negative (Negative); WBC Urine Automated >30 /hpf (0-5)
[2019-07-30 06:21] LABS: Albumin Globulin Ratio 0.9 (0.9-2); Albumin Level 3.2 gm/dl (3.4-5.0); BUN Creatinine Ratio 11.3 (10-20); Bilirubin,Total 0.4 mg/dl (0.2-1); Calcium 8.3 mg/dl (8.5-10.1); Est GFR (African American) 117.2; Est GFR (Non-African American) 101.1; Globulin 3.7 gm/dl (2.5-4.0); Potassium 3.8 mmol/L (3.5-5.1); Total Protein 6.9 gm/dl (6.4-8.2)
[2019-07-30 06:24] LABS: Basophils # (auto) 0.02 K/uL (0-0.2); Basophils % (auto) 0.2 %; Eosinophils % (auto) 0.9 %; Hematocrit (blood only) 39.1 % (37-47); Hemoglobin 12.8 g/dL (12.0-16.0); Immature Granulocytes # (auto) 0.02 K/uL (0.00-0.02); Immature Granulocytes % (auto) 0.2 %; Lymphocytes # (auto) 1.27 K/uL (1.2-3.4); Lymphocytes % (auto) 10.8 %; Mean Corpuscular Hgb Conc 32.7 g/dL (32-36); Mean Corpuscular Volume 88.7 fL (80-100); Mean Platelet Volume 9.2 fL (7.4-10.4); Monocytes # (auto) 0.77 K/uL (0.11-0.59); Monocytes % (auto) 6.6 %; Neutrophils # (auto) 9.56 K/uL (1.4-6.5); Neutrophils % (auto) 81.3 %; Platelet Count 288 K/uL (130-400); RDW Standard Deviation 42.6 fL (36.4-46.3); Red Blood Count 4.41 M/uL (4.2-5.4); White Blood Count 11.74 K/uL (4.8-10.8)
--- NOTE | 2019-07-30 07:25 | Emergency Department Note ---
ED Visit Note 0724: Signout from Dr. Booker. 39-year-old female G3, P2 3 weeks status post vaginal delivery by [facility] [employer] in this facility presenting with abdominal pain since Tuesday. Ultrasound showed complex fluid outside the uterus. Follow-up CT. 0837: Vital signs stable. Patient requiring more analgesia in the emergency department per nursing staff. Per radiology: CT of the abdomen showed several pelvic fluid collections adjacent to the uterus the largest measuring 8 x 5 x 4.5 cm and 5 x 3 x 2 cm. Collections are of uncertain etiology, abscesses must be considered. I did discuss the case with [facility] [employer] on-call Dr. Egan who states that either she or Dr. Corcoran will be down to evaluate the patient. 0955: Dr. Monaco and resident at bedside evaluating the patient. 1005: Dr. monaco accepts the patient for admission to his service. Requested antibiotics be given. Broad-spectrum antibiotics started, Zosyn given. . : Abdominal pain Qualifiers: Abdominal location: lower abdomen, unspecified Qualified Code(s): R10.30 - Lower abdominal pain, unspecified
--- NOTE | 2019-07-30 07:25 | Ultrasound Report ---
US pelvic limited CLINICAL HISTORY: eval -retained products COMPARISON STUDY: CT of the abdomen and pelvis April 26, 2014. OB ultrasound May 16, 2019. TECHNIQUE: Transabdominal sonography of the pelvis was performed. Transvaginal imaging was deferred i n this patient. FINDINGS: Uterus measures 12.7 x 5.6 x 7 cm. The endometrium is normal in thickness, measuring 5 mm. No increased vascularity within the endometrium is noted. Note is made of apparent complex fluid manolo ections adjacent to the uterus. A hypoechoic fluid collection posterior to the uterus measures 8.4 x 4 cm. A more complex mixed echogenicity fluid collection anterior to the uterus measures 6.5 x 1.9 cm . Less likely, these could reflect dilated tubes. The ovaries are sonographically unremarkable. Right ovary measures 2.7 x 2.2 x 2.2 cm and the left ovary measures 2.5 x 2 x 2.1 cm. IMPRESSION: 1. Complex fluid collections adjacent to the uterus, as described above. These are nonspecific althou gh favor hematomas. Dilated fallopian tubes could appear similar but are considered less likely. Uter ine rupture is within the differential but also considered unlikely given lack of previous s ection. A CT of the pelvis is recommended. Findings discussed with Dr. Broderick at time of dictation. 2. Normal endometrial thickness. No evidence of retained products. 3. Normal sonographic appearance of the ovaries on transabdominal exam. ACT 112: Negative or not required by law. Electronically signed by: Tay Quezada M.D. 07/30/2019 7:24 AM
[2019-07-30] MEDS: SODIUM CHLORIDE 0.9% 500 ML IV SCH ×2 (07:35→15:49)
[2019-07-30] MEDS ORDERED: IOVERSOL 100ml IV PRN (07:47)
--- NOTE | 2019-07-30 08:28 | CT Scan Report ---
CT abd pelvis IV con only CLINICAL HISTORY: eval fluid around the uterus COMPARISON STUDY: CT scan dated 04/26/2014, pelvic ultrasound dated 07/30/2019 TECHNIQUE: The patient was scanned in a dynamic helical fashion during intravenous administration of 94 cc of Optiray 320. A dose lowering technique was utilized adhering to the principles of ALARA. CT DOSE: 1219.30 mGy.cm FINDINGS: Lower chest: There are minimal dependent basilar atelectatic changes. There are trace pleural effusio ns. Liver: There is a nonspecific 11 mm left lobe hepatic hypodensity. This producing measured 8 mm. Hepa tic and portal veins appear patent. There is no ductal dilatation. Gallbladder: Cholelithiasis Spleen: Normal in size and attenuation. Pancreas: Unremarkable. Adrenal glands: Unremarkable. Kidneys: There is minimal fullness the right renal collecting system unchanged from the prior study. There is mild right ureteral dilatation. No calculi are visualized. Bowel: There are no transition zones indicate bowel obstruction. There is no evidence of acute divert iculitis. By history the appendix is surgically absent. Peritoneum: There is minimal free fluid most pronounced the right paracolic gutter. There is no free intraperitoneal air. Vasculature: The abdominal aorta is normal in course and caliber. Adenopathy: None. Pelvic viscera: There are several pelvic fluid collections with mildly enhancing jha. There is an 8 x 5 x 4.5 cm fluid collection posterior to the uterus. There is a 5 x 3 x 2 cm collection anterior t o the uterus. Additional cystic areas may represent the patient's [place] ovaries. While the stability these collections cannot be determined on CT, the findings must be viewed as suspicious for multiple abscesses. There is infiltration of the fat surrounding these collections. There is mild sacral loly a. There is mild thickening and heterogeneity of the endometrium. Skeletal structures: No destructive osseous lesions are seen. IMPRESSION: 1. Several pelvic fluid collections are visualized adjacent to the uterus the largest measuring 8 x 5 x 4.5 cm, and 5 x 3 x 2 cm. All these collections are of uncertain etiology, abscesses must be consi dered 2. Mild thickening and heterogeneity of the uterine endometrium 3. Minimal free pelvic fluid 4. Mild fullness the right renal collecting system and right ureter 5. No evidence of bowel obstruction. No evidence of free air. ACT 112: Negative or not required by law. Electronically signed by: Tomas Hanks M.D. 07/30/2019 8:27 AM
[2019-07-30] MEDS ORDERED: PIPERACILL/TAZOBAC CONSULT ACTIVE PRN ×2 (10:05→12:03)
[2019-07-30] MEDS ORDERED: PIPERACILLIN/TAZOBACTAM 4.5 GM/120 ML BAG IV ONE (10:05)
[2019-07-30] MEDS ORDERED: metroNIDAZOLE 500 MG/100 ML BAG IV SCH ×2 (10:30→12:00)
--- NOTE | 2019-07-30 10:44 | History & Physical Report ---
Date of Service July 30, 2019 Assessment & Plan (1) Pelvic abnormality in , condition: Patient is a 39 year old female s/p Vaginal Delivery of viable male 07/06/19 who presents with chief complaint of increasing suprapubic and pelvic pain. Abdominal and Pelvic Pain, likely secondary to presumed Pelvic Abscess -S/P Vaginal delivery 07/06/19, relatively uncomplicated delivery -CT ab/pelv showed Several pelvic fluid collections are visualized adjacent to the uterus the largest measuring 8 x 5 x 4.5 cm, and 5 x 3 x 2 cm and minimal pelvic free fluid -Unsure of etiology of likely abscesses at this time, however, will treat as though infectious etiology. -Zosyn and Flagyl for coverage. -NPO in the event that surgical intervention is required. -LR 100ml/hr while NPO. 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 Patient notes that her pain started roughly 5 days ago in her mid lower abdomen and has been consistently worsening since. 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 She also noted chills during this period which she had not experienced throughout the past week. She notes that her recent and delivery were relatively non-eventful and that the only complications she had were 2 2nd degree lacerations, one to her perineum and one to her periuretheral area. She has not had any vaginal discharge, dysuria, hematuria throughout this period. She has not had anything placed per vagina including tampons, douching, or intercourse. She denies any injuries including lifting anything heavier than baby or trauma. She denies any family history of endometriosis, cervical cancer, ovarian cancer. Allergies Allergy/AdvReac Type Severity Reaction Status Date / Time No Known Drug Allergies Allergy none Verified 07/30/19 05:36 Home Medications Home Medications Medication Instructions Recorded Confirmed Type escitalopram oxalate 10 mg tablet 10 mg PO DAILY 11/24/18 07/30/19 History multivitamin,jc-hslb-clqcoemo 1 tab PO DAILY 11/24/18 07/30/19 History cholecalciferol (vitamin D3) 125 5,000 units PO DAILY 02/23/19 07/30/19 History mcg (5,000 unit) capsule Zyrtec 10 mg PO DAILY 05/05/19 07/30/19 History xtelsyyecm-dkvehjdmcvexg-cxwh 1 tab PO Q6H PRN 07/30/19 07/30/19 History Patient History Social History Preferred Language: Icelandic Communication Ability: Effective Supervisor Type Photography Required: No Beliefs That Will Affect Care: None marital status: marital status details: Narciso Hu (41) [phone] Current Living Situation: Family Current Living Situation Comment: lives with spouse, son, dogs, cats-spouse changing litter current occupational status: employed current occupation: [employer]ad[employer] Other Information That Helps Us Care for You: No Feels Safe at Home: Yes Safety Concerns: Feels Safe At This Time Smoking Status: Never smoker Do You Dip or Chew Tobacco: No ; Second Hand Exposure: No ; Tobacco Cessation Education Requested by Patient: No Hx Alcohol Use: No Hx Substance Use: No Review of Systems + chills; no fever and no weakness no worsening vision no tinnitus and no dizziness no cough, no dyspnea and no pain on inspiration no chest pain, no dyspnea and no dyspnea on exertion + abdominal pain (lower abdomen, central ); no nausea, no vomiting, no constipation and no diarrhea/loose stools + pelvic pain; no dysuria, no difficulty urinating, no urinary frequency, no urinary hesitancy, no urinary urgency, no urinary incontinence, no hematuria, no vaginal discharge, no vaginal odor and no vaginal itching no back pain no rash no falls and no headache(s) Physical Exam Constitutional: well developed, well nourished and cooperative; not combative Eyes: PERRL, conjunctivae normal, anicteric sclerae ENMT: external ear and nose normal, oropharynx normal Neck: trachea midline, no thyromegaly Respiratory: normal respiratory effort, lungs clear to auscultation Cardiovascular: RRR, no murmur, no edema Gastrointestinal (Abdomen): Inspection/Auscultation: abdomen normal to inspection and normal bowel sounds; abdomen not distended Percussion/Palpation: + abdomen tender (TTP diffusely, worse in lower quadrants ), abdomen soft and normal to percussion Skin: no rashes, warm and dry Neurologic: patellar DTR's 2+ bilat, sensation intact and PERRL, EOMI, accommodation nl, no face palsy, no dysarthria Psychiatric: A+Ox3, euthymic affect Genitourinary: normal external appearance; no CVA tenderness Sp eculum/Bimanual Exam: normal appearance of the vagina and + uterus tender; no cervical tenderness, no adnexal tenderness, no foreign body in vagina and no cervical motion tenderness Vaginal Exam and Bimanual pelvic exam conducted by Dr. Corcoran. Results & Data Vital Signs (Past 12 Hours) Vital Signs Temp Pulse Pulse Resp BP BP Pulse Ox 07/30/19 10:05 74 16 135/78 07/30/19 09:01 72 16 144/75 H 07/30/19 08:03 74 16 142/78 H 07/30/19 07:25 64 16 126/74 97 07/30/19 06:30 65 17 116/67 97 07/30/19 06:09 72 21 113/67 97 07/30/19 06:00 64 16 109/61 98 07/30/19 05:56 70 15 116/60 98 07/30/19 04:53 36.5 C 85 20 105/72 99 Code Status & VTE Plan VTE Prophylaxis Plan VTE Prophylaxis will be ordered: Yes Supervising Physician Co-Signing Physician Notes Patient seen with resident and agree with the above findings and plan. Patient increasing pain and pelvic fluid collection and possible pelvic abscess of unclear etiology. Patient has no other symptoms of infection including denying fevers, chills, night sweats. WBC was within normal range for state. Discussed admitting for pain control and IV antibiotics. Resident Activity Tracking Resident Involvement: Resident Care Provided Care Provided: Adult Hospital Medicine (1) Abdominal pain Abdominal location: lower abdomen, unspecified Qualified Code(s): R10.30 - Lower abdominal pain, unspecified
[2019-07-30] MEDS ORDERED: MoRPHine SULFATE 4 MG/ML 1 ML CARP\\VIAL IV PRN (10:46)
[2019-07-30] MEDS: ACETAMINOPHEN 325 MG TAB PO SCH ×3 (12:08→20:32)
[2019-07-30] MEDS ORDERED: HYDROmorphone PCA 30 MG/30 ML IV PRN (12:42)
[2019-07-30] MEDS ORDERED: NALOXONE HCL 0.4 MG/1 ML VIAL/CARP IV PRN (12:42)
[2019-07-30] MEDS ORDERED: HYDROmorphone Bolus from PCA IV ONE (13:15)
[2019-07-30] MEDS: DOCUSATE SODIUM 100 MG CAP PO SCH ×2 (13:39→20:32)
[2019-07-30] MEDS: SODIUM CHLORIDE 0.9% 1000ML 1,000 ML IV SCH (13:39)
[2019-07-30] MEDS: LACTATED RINGER'S 1,000 ML IV SCH ×2 (13:54→23:55)
[2019-07-30] MEDS: PIPERACILLIN/TAZOBACTAM 3.375 GM in DEXTROSE 5% 100 ML IV SCH ×2 (17:18→23:56)
[2019-07-31] MEDS: ACETAMINOPHEN 325 MG TAB PO SCH ×2 (04:13→10:44)
[2019-07-31 06:24] LABS: Basophils # (auto) 0.01 K/uL (0-0.2); Basophils % (auto) 0.1 %; Eosinophils # (auto) 0.13 K/uL (0-0.5); Eosinophils % (auto) 1.6 %; Hemoglobin 12.1 g/dL (12.0-16.0); Lymphocytes # (auto) 1.46 K/uL (1.2-3.4); Mean Corpuscular Hemoglobin 29.5 pg (25-34); Mean Corpuscular Hgb Conc 32.7 g/dL (32-36); Mean Corpuscular Volume 90.2 fL (80-100); Mean Platelet Volume 8.7 fL (7.4-10.4); Monocytes # (auto) 0.54 K/uL (0.11-0.59); Monocytes % (auto) 6.7 %; Neutrophils # (auto) 5.96 K/uL (1.4-6.5); Neutrophils % (auto) 73.6 %; Platelet Count 298 K/uL (130-400); RDW Coefficient of Variation 13.2 % (11.5-14.5); RDW Standard Deviation 43.6 fL (36.4-46.3)
[2019-07-31 06:49] LABS: BUN Creatinine Ratio 5.6 (10-20); Calcium 8.2 mg/dl (8.5-10.1); Creatinine Clr Calc Pharmacy 56.1 ml/min; Est GFR (African American) 110.1; Potassium 3.3 mmol/L (3.5-5.1)
[2019-07-31 06:51] LABS: Albumin Globulin Ratio 0.8 (0.9-2); Bilirubin,Total 0.6 mg/dl (0.2-1); Globulin 3.7 gm/dl (2.5-4.0); Total Protein 6.7 gm/dl (6.4-8.2)
[2019-07-31] MEDS: DOCUSATE SODIUM 100 MG CAP PO SCH (08:11)
[2019-07-31] MEDS: PIPERACILLIN/TAZOBACTAM 3.375 GM in DEXTROSE 5% 100 ML IV SCH (08:11)
--- NOTE | 2019-07-31 08:15 | Obstetrical Progress Note ---
Date of Service July 31, 2019 Assessment & Plan (1) Pelvic abscess in female: 39yo ~3weeks s/p uncomplicated . Admitted for pelvic fluid collections and possible abscess. Patient stable. WBC trended down from ~11 to ~8 this am. Deny any symptoms other then pain. Labs are normal range. Call [facility] to discuss placing a drain. [facility] does not feel that they would be able to drain the collections. Will continue Zosyn and Dilaudid GROUP DIRECTOR. Will continue to monitor for clinic change Subjective 39yo ~3 weeks s/p uncomplicated . Admitted for expected pelvic abscess. No acute events overnight. Patient report pain is about the same as yesterday. T emp of 38.0 noted overnight. Denies any other symptoms of infection. Good urine output. No issues with BM. Physical Exam Constitutional: WD/WN, vitals as above Cardiovascular: RRR, no murmur, no edema Gastrointestinal (Abdomen): Percussion/Palpation: + abdomen tender (Lower pelvis ), + guarding and abdomen soft; abdomen not rigid Results & Data Vital Signs (Past 12 Hours) Vital Signs Temp Pulse Resp BP Pulse Ox 07/31/19 04:10 37.5 C 102 H 16 120/82 94 07/31/19 00:10 37.3 C 88 18 120/83 93 07/30/19 21:40 37.2 C 07/30/19 20:30 38 C H 95 H 17 132/82 99 PG Care Time/CCT Total # of Minutes Spent Total Time Spent with Patient: Total time spent is greater than 50% in coordination of care (as documented) at patient's floor/unit and/or counseling patient: Coding Level of Care Code 81057 Subseq Obs Care Lvl 2 Diagnoses Pelvic abscess in female N73.9
[2019-07-31] MEDS ORDERED: ESCITALOPRAM OXALATE 10 MG TAB PO SCH (09:00)
[2019-07-31] MEDS ORDERED: CETIRIZINE HCL 10 MG TABLET PO SCH (09:00)
[2019-07-31] MEDS ORDERED: MULTIVITAMIN TAB PO SCH (09:00)
[2019-07-31] MEDS: SODIUM CHLORIDE 0.9% 1000ML 1,000 ML IV SCH (10:03)
--- NOTE | 2019-07-31 11:38 | Obstetrical Progress Note ---
Date of Service July 31, 2019 Assessment & Plan (1) Pelvic abscess in female: Patient admitted PPD#25 with two large pelvic collections + rim enhancement that are suspicious for abscess. No obvious etiology; was GBS positive at delivery but was without complications, no excessive lacerations or manual extraction of placenta. She is low risk for STD with a mutually monogamous partner x15 years and GC/CT negative at care initiation. At this time patient is developing bladder dysfunction that is suspicious for mass symptom of abscess. I feel drainage is indicated, and due to bladder symptoms this should be done roger. I spoke with Drs. Gan and Radha at [facility] who agree that the patient should be transferred there for access to IR services for abscess decompression. The transfer is accepted under Dr. Chen officially, with room 29 identified as available. They request COVID rapid testing prior to patient departure, as well as genital culture, GC/CT and a catheter urine sample. Note blood cultures already done and negative. UA from the ER yesterday suggests contamination hence the repeat from catheter today. Subjective 39yo PPD #25 from uncomplicated who was admitted with pelvic pain that was acutely worsening. She was found on abdominal imaging to have two abscesses with rim enhancement, one anterior and posterior to the uterus. She was initally managed with inpatient admission for pain control and IV antibiotics, hoping to avoid the need for abscess drainage per the admitting MD. 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 She is also now experiencing voiding dysfunction - she feels it is hard to start and maintain an urine stream and feels she is not empty after voiding. She is anxious about what she feels is worsening condition and is noted to be mildly tachycardic. Additionally I note sats are 92% on RA when they had been 100% - patient denies SOB or chest pain, is moderately obese and resting with a slumped posture and is encouraged to sit up and take deep breaths. She has no cough, no calf swelling or pain. Review of Systems Review of Systems: All systems reviewed & are unremarkable except as noted in HPI & below Physical Exam 2 Constitutional: WD/WN, vitals as above Eyes: PERRL, conjunctivae normal, anicteric sclerae ENMT: external ear and nose normal, oropharynx normal Neck: normal visual inspection Respiratory: normal respiratory effort; no respiratory distress and does not use accessory muscles Cardiovascular: Rate/Rhythm: regular rhythm and + tachycardic Gastrointestinal (Abdomen): Inspection/Auscultation: abdomen normal to inspection and + abdominal surgical scar (laparoscopy) Percussion/Palpation: + abdomen tender (lower abdomen Right, left and center equally ttp.) and abdomen soft; no guarding and no ascites no rebound Musculoskeletal: no cyanosis or clubbing, extremities motor strength 5/5 Skin: no rashes, warm and dry Neurologic: patellar DTR's 2+ bilat, sensation intact Psychiatric: A+Ox3, euthymic affect Lymphatic: no inguinal lymphadenopathy Results & Data Vital Signs (Past 12 Hours) Vital Signs Temp Pulse Pulse Resp BP Pulse Ox 07/31/19 08:00 99.5 F 116 H 20 122/87 92 07/31/19 04:10 99.5 F 102 H 16 120/82 94 07/31/19 00:10 99.1 F 88 18 120/83 93 PG Care Time/CCT Total # of Minutes Spent Total Time Spent with Patient: Total time spent is greater than 50% in coordination of care (as documented) at patient's floor/unit and/or counseling patient: Coding Level of Care Code 69786 Subseq Hosp Care Lvl 3 Diagnoses Pelvic abscess in female N73.9
[2019-07-31 12:19] LABS: Appearance Urine Clear (Clear); Bilirubin Urine Negative (Negative); Blood Urine Negative (Negative); Color Urine Yellow; Glucose Urine UA Negative (Negative); Ketones Urine Negative (Negative); Leukocyte Esterase Urine Negative (Negative); Nitrite Urine Negative (Negative); Protein Urine Negative (Negative); Specific Gravity Urine 1.007 (1.000-1.030); Urobilinogen Urine Negative (Negative)
--- NOTE | 2019-08-02 08:26 | Discharge Summary ---
Date of Service August 02, 2019 Admission HPI Per Admitting Provider Patient is a 39 year old female s/p Vaginal Delivery of viable infant male 07/06/19 who presents with chief complaint of increasing suprapubic and pelvic pain. Patient notes that her pain started roughly 5 days ago in her mid lower abdomen and has been consistently worsening since. 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 She also noted chills during this period which she had not experienced throughout the past week. She notes that her recent and delivery were relatively non-eventful and that the only complications she had were 2 2nd degree lacerations, one to her perineum and one to her periuretheral area. She has not had any vaginal discharge, dysuria, hematuria throughout this period. She has not had anything placed per vagina including tampons, douching, or intercourse. She denies any injuries including lifting anything heavier than baby or trauma. She denies any family history of endometriosis, cervical cancer, ovarian cancer. Discharge Data Consultations 07/30/19 10:06 ED Decision to Admit Stat Hospital Course (1) Pelvic abscess in female: Admitted with finding of rim enhancing collections in pelvis. Clinical worsening despite IV antibiotics started by admitting physician. Yadav placed for mass effect causing voiding dysfunction. Patient transferred to [facility] on HD#2 for IR guided drainage. Coding Level of Care Code None Diagnoses Pelvic abscess in female N73.9
== END 2019-07-31 14:35 | disposition short-term general hospital (02) ==
LOC: 4N 04:49 → ED 04:49

== ENCOUNTER 2022-05-19 15:52 | Observation (INO) ==
[2022-05-19] MEDS ORDERED: MoRPHine SULFATE 10 MG/ML CARP/VIAL IV STA (16:14)
[2022-05-19] MEDS ORDERED: MoRPHine SULFATE 4 MG/ML 1 ML CARP\\VIAL IV PRN (16:14)
[2022-05-19] MEDS ORDERED: ONDANSETRON INJ 2 MG/ML 2 ML VIAL IV STA (16:14)
[2022-05-19] MEDS ORDERED: SODIUM CHLORIDE 0.9% 1000ML 1,000 ML IV SCH (16:15)
--- NOTE | 2022-05-19 16:26 | Emergency Department Note ---
History of Present Illness General Chief complaint: Referred by Doctor Stated complaint: REF BY DOC,GALL BLADER,NAUSEA,DIZZY,CHILLS, Time Seen by Provider: 05/19/22 15:58 History of Present Illness Maximum Pain Intensity: 5 Patient is a 42-year-old female with past medical history significant for anxiety and depression who presents emergency department for evaluation of right upper quadrant abdominal pain, nausea, anorexia and bloating that started about 4 days ago. Known history of gallstones from prior abdominal imaging, from a couple of years ago. She notes that she had been getting sporadic right upper quadrant pain over the last 6 months or so. On Tuesday, symptoms started acutely with loss of appetite. She states that at work on Tuesday she had to leave early because she had developed nausea, chills and right upper quadrant abdominal pain. It was initially sharp and stabbing, but has now progressed and is more of a constant, aching pain. She currently rates it a 5/10. She states is located in the right upper quadrant and wraps around the right back slightly. She states it hurts to lay on the right side. It hurts when she moves. She feels bloated. She has not vomited but attributes this to lack of oral intake. She has not had any diarrhea. She has tried a bland diet, Zofran for nausea and Tylenol for pain without relief. She had a standing telehealth appointment with her PCP today and they directed her to the emergency department for work-up. Home Medications Medication Instructions Recorded Confirmed Type cetirizine 10 mg tablet (Zyrtec) 10 mg PO QAM 05/16/20 05/19/22 History trazodone 50 mg tablet 50 mg PO HS 05/16/20 05/19/22 History melatonin 5 mg tablet,immediate 5 mg PO HS 06/25/20 05/19/22 History and extended release citalopram 10 mg tablet 10 mg PO QAM 05/19/22 05/19/22 History Allergies Allergy/AdvReac Type Severity Reaction Status Date / Time No Known Drug Allergies Allergy none Verified 05/19/22 16:36 Past Med/Surg History Medical History Anxiety Asthma exercise induced. no recent problems. Depression Environmental and seasonal allergies History of anesthesia reaction syncope and dizziness s/p general anesthesia. "passes out after anesthesia when she first stands up" Obesity Sleep apnea Surgical History History of hysterectomy With rectocele and cystocele repair History of laparoscopy S/P appendectomy S/P bilateral breast reduction S/P wisdom tooth extraction Family History Grandmother (Maternal) Diabetes Grandmother (Paternal) Colorectal cancer Grandfather (Maternal) Cleft palate Social History Smoking Status: Never smoker Tobacco Type: Cigarettes Second Hand Exposure: No; Hx Alcohol Use: Yes Hx Substance Use: No Preferred Language: Mohawk Communication Ability: Effective Solar Resource Assessor Required: No Beliefs That Will Affect Care: None marital status: marital status details: Narciso Hu [phone] Current Living Situation: Family Current Living Situation Comment: lives with spouse, sons, dogs, cats-spouse changing litter current occupational status: employed current occupation: [employer] Feels Safe at Home: Yes Assistive Devices: None Review of Systems A total of 10 systems reviewed and were otherwise negative Physical Exam Vital Signs Vital Signs - 24 hr 05/19/22 15:54 05/19/22 17:16 05/19/22 18:06 Temperature 36.3 C L Temperature Source Skin Pulse Rate 72 Pulse Rate [Apical] 61 57 L Respiratory Rate 20 14 Respiratory Effort / Characteristics Non-Labored Respiratory Depth Normal Respiratory Pattern Regular Blood Pressure 137/79 Blood Pressure [Right Arm] 110/71 Blood Pressure Mean 98 Blood Pressure Mean [Right Arm] 84 Pulse Oximetry 98 99 97 Oxygen Delivery Method Room Air Room Air Room Air Sepsis Recent Fever Within 48 Hours No Sepsis New/Unexplained Change in Mental Status N/A Sepsis Action Taken by Nursing No Action Required 05/19/22 20:08 05/19/22 21:53 Temperature Temperature Source Pulse Rate 65 Pulse Rate [Apical] 60 Respiratory Rate 17 15 Respiratory Effort / Characteristics Non-Labored Respiratory Depth Respiratory Pattern Blood Pressure 111/73 Blood Pressure [Right Arm] 113/62 Blood Pressure Mean Blood Pressure Mean [Right Arm] 79 Pulse Oximetry 98 97 Oxygen Delivery Method Room Air Room Air Sepsis Recent Fever Within 48 Hours Sepsis New/Unexplained Change in Mental Status Sepsis Action Taken by Nursing CONSTITUTIONAL: Patient is an uncomfortable appearing 42-year-old female who is awake and alert and sitting semiupright on the gurney. EYES: Pupils equal, round, reactive to light and accommodation. EOMs intact without nystagmus. Sclera are anicteric. ENT: Tympanic membranes intact, with normal landmarks. External canals are clear. Oral and nasopharynx are clear. Mucous membranes are moist, no lesions, tongue and gums appear normal. CARDIOVASCULAR: Regular rate and rhythm. Peripheral pulses easily palpable. RESPIRATORY: Breath sounds equal and clear to auscultation. ABDOMEN: Bowel sounds are present. The abdomen is soft, obese, mildly tender to percussion and palpation in the epigastric and the right upper quadrant. Positive Coronel sign. INTEGUMENTARY: No lesions or rash, normal skin turgor. LYMPH: No lymphadenopathy. Course Course The patient was seen and assessed as above. External medical records are reviewed. She presents emergency department for evaluation of right upper quadrant abdominal pain associated with anorexia, nausea and bloating. She does have known gallstones. IV lock was initiated and laboratory studies were co llected. CBC with differential, CMP, lipase and urinalysis were ordered. She was hydrated with normal saline solution medicated with Zofran and morphine IV for pain. Gallbladder ultrasound was performed. Laboratory studies per my interpretation note a normal white count at 4700. No left shift. No anemia. No electrolyte imbalance requiring correction. Renal functions are normal. Transaminases and lipase are not elevated. Urine dip is without signs of infection. Gallbladder ultrasound per my interpretation notes a distended gallbladder with gallbladder wall thickening, cholelithiasis and layering sludge. Findings are concerning for acute cholecystitis although no pericholecystic fluid noted. No ductal dilatation. Patient was reassessed when she returned from ultrasound. Laboratory studies and ultrasound findings were reviewed with her. She reported some relief of her pain with the IV morphine, and declined any additional medication needs. Discussed with her that findings are concerning for acute cholecystitis. Recommended that I discussed her case with general surgery. She was in agreement. Patient was reviewed with Dr. Cruz, general surgery. A COVID test was obtained for admitting/surgical planning, and was negative. Patient was seen in the ED by general surgery staff, and plan will be for the OR later this evening. After discussion with Dr. Cruz, the patient was ordered Zosyn IV. Maintenance fluids were continued in the ED. She had m orphine available as needed. She remained stable in the emergency department, until she was taken to the OR for definitive intervention. Administered Medications Sodium Chloride (Nss 1000ml) 1,000 mls @ 250 mls/hr IV .Q4H SCHUYLER Stop: 06/18/22 16:14 Last Admin: 05/19/22 20:04 Dose: 250 mls/hr Documented By: ML Morphine Sulfate (Morphine Sulfate 4 Mg/Ml 1 Ml Carp\\Vial) 4 mg IV Q1H PRN PRN Reason: Pain Stop: 06/02/22 16:13 Last Admin: 05/19/22 19:30 Dose: 4 mg Documented By: ML Discontinued Medications Sodium Chloride (Nss 1000ml) 1,000 mls @ 999 mls/hr IV .Q1H1M SCHUYLER Stop: 05/19/22 17:15 Last Infusion: 05/19/22 18:10 Dose: 0 mls/hr Documented By: Admin: 05/19/22 17:09 Dose: 999 mls/hr Documented By: ML Piperacillin Sod/Tazobactam (Sod 3.375 gm/ Dextrose) 100 ml in 115 mls @ 230 mls/hr IV NOW STA Stop: 05/19/22 19:52 Last Infusion: 05/19/22 20:33 Dose: 0 mls/hr Documented By: Admin: 05/19/22 20:03 Dose: 230 mls/hr Documented By: ML Morphine Sulfate (Morphine Sulfate 10 Mg/Ml Carp/Vial) 6 mg IV NOW STA Stop: 05/19/22 16:15 Last Admin: 05/19/22 17:09 Dose: 6 mg Documented By: ML Ondansetron HCl (Ondansetron Inj 2 Mg/Ml 2 Ml Vial) 4 mg IV NOW STA Stop: 05/19/22 16:15 Last Admin: 05/19/22 17:09 Dose: 4 mg Documented By: ML Medical Decision Making Differential Diagnosis Differential diagnoses entertained included acute cholecystitis, symptomatic cholelithiasis, biliary colic, ascending cholangitis, acute pancreatitis, bowel obstruction, GERD, gastritis, peptic ulcer disease, perforated ulcer, among others. Medical Records Attestation: I reviewed the patient's medical records. Home Medications Current Medication List: was personally reviewed by me Laboratory Data Attestation: I reviewed the patient's lab results. 05/19/22 17:25 05/19/22 16:37 Lab Results 05/19/22 05/19/22 05/19/22 Range/Units 16:37 16:37 17:15 WBC Cancelled RBC Cancelled Hgb Cancelled Hct Cancelled MCV Cancelled MCH Cancelled MCHC Cancelled RDW Std Deviation Cancelled RDW Coeff of Sally Cancelled Plt Count Cancelled MPV Cancelled Immature Gran % (Auto) Cancelled Neut % (Auto) Cancelled Lymph % (Auto) Cancelled Foster % (Auto) Cancelled Eos % (Auto) Cancelled Baso % (Auto) Cancelled Neut # (Auto) Cancelled Lymph # (Auto) Cancelled Foster # (Auto) Cancelled Eos # (Auto) Cancelled Baso # (Auto) Cancelled Immature Gran # (Auto) Cancelled Absolute Nucleated RBC Cancelled Nucleated RBC % (auto) Cancelled Neutrophils % (Manual) Cancelled Band Neutrophils % Cancelled Lymphocytes % (Manual) Cancelled Prolymphocyte % Cancelled Reactive Lymphs % (Man) Cancelled Monocytes % (Manual) Cancelled Eosinophils % (Manual) Cancelled Basophils % (Manual) Cancelled Metamyelocytes % (Man) Cancelled Myelocytes % (Man) Cancelled Promyelocytes % (Man) Cancelled Blast Cells % (Manual) Cancelled Plasma Cell % (Manual) Cancelled Other Cells % Cancelled Nucleated RBC % Cancelled Neutrophils # (Manual) Cancelled Band Neutrophils # Cancelled Total Absolute Neuts Cancelled Lymphocytes # (Manual) Cancelled Prolymphocyte # Cancelled Reactive Lymphs # Cancelled Total Abs Lymphocytes Cancelled Monocytes # (Manual) Cancelled Eosinophils # (Manual) Cancelled Basophils # (Manual) Cancelled Metamyelocytes # (Man) Cancelled Myelocytes # (Manual) Cancelled Promyelocytes # (Man) Cancelled Blast Cells # (Man) Cancelled Plasma Cell # (Manual) Cancelled Other Cells # Cancelled Nucleated RBCs # (Man) Cancelled Hypersegmented Neuts Cancelled Hyposegmented Neuts Cancelled Hypogranular Neuts Cancelled Large Granular Lymphs Cancelled # Lrg Granular Lymphs Cancelled Hairy Cells Cancelled Smudge Cells Cancelled Toxic Granulation Cancelled Toxic Vacuolation Cancelled Dohle Bodies Cancelled Karl Rods Cancelled Platelet Estimate Cancelled Hypogranular Platelets Cancelled Giant Platelets Cancelled Platelet Satelliting Cancelled RBC Morphology Cancelled Polychromasia Cancelled Hypochromasia Cancelled Poikilocytosis Cancelled Basophilic Stippling Cancelled Anisocytosis Cancelled Microcytosis Cancelled Macrocytosis Cancelled Spherocytes Cancelled Pappenheimer Bodies Cancelled Sickle Cells Cancelled Target Cells Cancelled Tear Drop Cells Cancelled Ovalocytes Cancelled Stomatocytes Cancelled Patel-[place] Bodies Cancelled Echinocytes Cancelled Acanthocytes (Spur) Cancelled Rouleaux Cancelled RBC Agglutinates Cancelled Schistocytes Cancelled Sezary Cell Cancelled Sodium 141 (136-145) mmol/L Potassium 3.5 (3.5-5.1) mmol/L Chloride 106 (98-107) mmol/L Carbon Dioxide 28 (21-32) mmol/L Anion Gap 7 (3-11) BUN 10 (6-23) mg/dl Creatinine 0.74 (0.6-1.2) mg/dl Est Cr Clr Drug Dosing 122.6 ml/min Est GFR ( Amer) 116.6 ml/min Est GFR (Non-Af Amer) 100.6 ml/min BUN/Creatinine Ratio 13.5 (10-20) Glucose 94 (70-99(Fasting)) mg/dl Calcium 9.2 (8.6-10.3) mg/dl Total Bilirubin 0.4 (0.2-1.0) mg/dl AST 20 (13-39) U/L ALT 15 (7-52) U/L Alkaline Phosphatase 55 (34-104) U/L Total Protein 7.5 (6.0-8.3) gm/dl Albumin 4.6 (3.4-5.0) gm/dl Globulin 2.9 (2.5-4.0) gm/dl Albumin/Globulin Ratio 1.6 (0.9-2) Lipase 13 (11-82) U/L POC Urine pH 6 (4.5-7.5) POC Urine Protein Trace H (Negative) POC Ur Glucose (UA) Normal (Normal) POC Urine Ketones Negative (Negative) POC Urine Blood Trace H (Negative) POC Urine Nitrite Negative (Negative) POC Urine Bilirubin Negative (Negative) POC Urine Urobilinogen Normal (Normal) POC U Leukocyte Esteras Negative (Negative) SARS-CoV-2, RNA, NAAT (NEGATIVE) Blood Parasites ID Cancelled 05/19/22 05/19/22 Range/Units 17:25 18:32 WBC 4.72 L RBC 4.63 Hgb 13.8 Hct 40.0 MCV 86.4 MCH 29.8 MCHC 34.5 RDW Std Deviation 39.8 RDW Coeff of Sally 12.7 Plt Count 268 MPV 8.8 L Immature Gran % (Auto) 0.2 Neut % (Auto) 60.4 Lymph % (Auto) 28.0 Foster % (Auto) 9.7 Eos % (Auto) 1.3 Baso % (Auto) 0.4 Neut # (Auto) 2.85 Lymph # (Auto) 1.32 Foster # (Auto) 0.46 Eos # (Auto) 0.06 Baso # (Auto) 0.02 Immature Gran # (Auto) 0.01 Absolute Nucleated RBC Nucleated RBC % (auto) Neutrophils % (Manual) Band Neutrophils % Lymphocytes % (Manual) Prolymphocyte % Reactive Lymphs % (Man) Monocytes % (Manual) Eosinophils % (Manual) Basophils % (Manual) Metamyelocytes % (Man) Myelocytes % (Man) Promyelocytes % (Man) Blast Cells % (Manual) Plasma Cell % (Manual) Other Cells % Nucleated RBC % Neutrophils # (Manual) Band Neutrophils # Total Absolute Neuts Lymphocytes # (Manual) Prolymphocyte # Reactive Lymphs # Total Abs Lymphocytes Monocytes # (Manual) Eosinophils # (Manual) Basophils # (Manual) Metamyelocytes # (Man) Myelocytes # (Manual) Promyelocytes # (Man) Blast Cells # (Man) Plasma Cell # (Manual) Other Cells # Nucleated RBCs # (Man) Hypersegmented Neuts Hyposegmented Neuts Hypogranular Neuts Large Granular Lymphs # Lrg Granular Lymphs Hairy Cells Smudge Cells Toxic Granulation Toxic Vacuolation Dohle Bodies Karl Rods Platelet Estimate Hypogranular Platelets Giant Platelets Platelet Satelliting RBC Morphology Polychromasia Hypochromasia Poikilocytosis Basophilic Stippling Anisocytosis Microcytosis Macrocytosis Spherocytes Pappenheimer Bodies Sickle Cells Target Cells Tear Drop Cells Ovalocytes Stomatocytes Patel-[place] Bodies Echinocytes Acanthocytes (Spur) Rouleaux RBC Agglutinates Schistocytes Sezary Cell Sodium (136-145) mmol/L Potassium (3.5-5.1) mmol/L Chloride (98-107) mmol/L Carbon Dioxide (21-32) mmol/L Anion Gap (3-11) BUN (6-23) mg/dl Creatinine (0.6-1.2) mg/dl Est Cr Clr Drug Dosing ml/min Est GFR ( Amer) ml/min Est GFR (Non-Af Amer) ml/min BUN/Creatinine Ratio (10-20) Glucose (70-99(Fasting)) mg/dl Calcium (8.6-10.3) mg/dl Total Bilirubin (0.2-1.0) mg/dl AST (13-39) U/L ALT (7-52) U/L Alkaline Phosphatase (34-104) U/L Total Protein (6.0-8.3) gm/dl Albumin (3.4-5.0) gm/dl Globulin (2.5-4.0) gm/dl Albumin/Globulin Ratio (0.9-2) Lipase (11-82) U/L POC Urine pH (4.5-7.5) POC Urine Protein (Negative) POC Ur Glucose (UA) (Normal) POC Urine Ketones (Negative) POC Urine Blood (Negative) POC Urine Nitrite (Negative) POC Urine Bilirubin (Negative) POC Urine Urobilinogen (Normal) POC U Leukocyte Esteras (Negative) SARS-CoV-2, RNA, NAAT NEGATIVE (NEGATIVE) Blood Parasites ID Imaging Data Attestation: I personally reviewed and interpreted this imaging study as follows: Radiologist's Impression: Gallbladder Ultrasound 05/19/22 16:14 ABDOMINAL ULTRASOUND, RIGHT UPPER QUADRANT HISTORY: Acute right upper quadrant abdominal pain RUQ PAIN, NAUSEA, BLOATING, ANOREXIA. COMPARISON: CT abdomen pelvis 06/25/2020. FINDINGS: Pancreas: The pancreas is mostly obscured by bowel gas. Liver: The liver measures up to 15 cm and demonstrates increased echogenicity without hepatic mass. Gallbladder: Cholelithiasis with layering sludge. Gallbladder wall measures the upper limits of normal at 3 mm. No pericholecystic fluid. Sonographic Coronel sign was unable to be assessed secondary to patient recently receiving pain medication. Mild gallbladder distention. CBD: 0.4 cm. Right kidney: No hydronephrosis. IMPRESSION: 1. Distended gallbladder with cholelithiasis. The gallbladder wall measures within the upper limits of normal. There is no pericholecystic fluid and the sonographic Coronel sign was unable to be assessed. If there is further clinical concern for acute cholecystitis, correlation with a nuclear medicine hepatobiliary scan should be considered. 2. No biliary ductal dilation. 3. Hepatic steatosis. ACT 112: Negative or not required by law. Electronically signed by: Murphy Sifuentes M.D. 05/19/2022 6:09 PM MDM Narrative See ED course Impression & Plan Acute cholecystitis Discharge Plan Visit Data Chief Complaint: Referred by Doctor Stated Complaint: REF BY DOC,GALL BLADER,NAUSEA,DIZZY,CHILLS, ED Provider: Keenan Bethea ED Midlevel Provider: Jenni Monterroso Discharge Problem: Acute cholecystitis Patient Disposition: Admitted As Inpatient Discharge Instructions Interventions: ED Discharge Assessment Last Done: 05/19/22 21:53
[2022-05-19 17:31] LABS: Albumin Globulin Ratio 1.6 (0.9-2); Albumin Level 4.6 gm/dl (3.4-5.0); BUN Creatinine Ratio 13.5 (10-20); Bilirubin,Total 0.4 mg/dl (0.2-1.0); Calcium 9.2 mg/dl (8.6-10.3); Creatinine Clr Calc Pharmacy 122.6 ml/min; Est GFR (African American) 116.6 ml/min; Est GFR (Non-African American) 100.6 ml/min; Globulin 2.9 gm/dl (2.5-4.0); Potassium 3.5 mmol/L (3.5-5.1); Total Protein 7.5 gm/dl (6.0-8.3)
[2022-05-19 17:56] LABS: Basophils # (auto) 0.02 K/uL (0-0.2); Basophils % (auto) 0.4 %; Eosinophils # (auto) 0.06 K/uL (0-0.50); Eosinophils % (auto) 1.3 %; Hemoglobin 13.8 g/dl (12.0-16.0); Immature Granulocytes # (auto) 0.01 K/uL (0.01-0.20); Immature Granulocytes % (auto) 0.2 %; Lymphocytes # (auto) 1.32 K/uL (1.2-3.4); Mean Corpuscular Hemoglobin 29.8 pg (25.0-34.0); Mean Corpuscular Hgb Conc 34.5 g/dL (32.0-36.0); Mean Corpuscular Volume 86.4 fL (80.0-100.0); Mean Platelet Volume 8.8 fL (9.4-12.4); Monocytes # (auto) 0.46 K/uL (0.11-0.59); Monocytes % (auto) 9.7 %; Neutrophils # (auto) 2.85 K/uL (1.40-6.50); Neutrophils % (auto) 60.4 %; Platelet Count 268 K/uL (130-400); RDW Coefficient of Variation 12.7 % (11.5-14.5); RDW Standard Deviation 39.8 fL (36.4-46.3); Red Blood Count 4.63 M/uL (4.20-5.40); White Blood Count 4.72 K/ul (4.8-10.8)
--- NOTE | 2022-05-19 18:10 | Ultrasound Report ---
ABDOMINAL ULTRASOUND, RIGHT UPPER QUADRANT HISTORY: Acute right upper quadrant abdominal pain RUQ PAIN, NAUSEA, BLOATING, ANOREXIA. COMPARISON: CT abdomen pelvis 06/25/2020. FINDINGS: Pancreas: The pancreas is mostly obscured by bowel gas. Liver: The liver measures up to 15 cm and demonstrates increased echogenicity without hepatic mass. Gallbladder: Cholelithiasis with layering sludge. Gallbladder wall measures the upper limits of tuyet l at 3 mm. No pericholecystic fluid. Sonographic Coronel sign was unable to be assessed secondary to p atient recently receiving pain medication. Mild gallbladder distention. CBD: 0.4 cm. Right kidney: No hydronephrosis. IMPRESSION: 1. Distended gallbladder with cholelithiasis. The gallbladder wall measures within the upper limits o f normal. There is no pericholecystic fluid and the sonographic Coronel sign was unable to be assessed . If there is further clinical concern for acute cholecystitis, correlation with a nuclear medicine h epatobiliary scan should be considered. 2. No biliary ductal dilation. 3. Hepatic steatosis. ACT 112: Negative or not required by law. Electronically signed by: Murphy Sifuentes M.D. 05/19/2022 6:09 PM
[2022-05-19 18:24] LABS: POC Urine Bilirubin Negative (Negative); POC Urine Blood Trace (Negative); POC Urine Glucose Normal (Normal); POC Urine Ketones Negative (Negative); POC Urine Leukocytes Negative (Negative); POC Urine Nitrite Negative (Negative); POC Urine Protein Trace (Negative); POC Urine Urobilinogen Normal (Normal); POC Urine pH 6 (4.5-7.5)
[2022-05-19] MEDS ORDERED: PIPERACILLIN/TAZOBACTAM 3.375 GM in DEXTROSE 5% 100 ML/100 ML BAG IV STA (19:23)
[2022-05-19] MEDS: SODIUM CHLORIDE 0.9% 1000ML 1,000 ML IV SCH (20:04)
[2022-05-19] MEDS ORDERED: ROCURONIUM BROMIDE 10 MG/ML 5 ML VIAL IV ONE (21:15)
[2022-05-19] MEDS ORDERED: PROPOFOL IV EMULSION 10 MG/ML 20 ML VIAL IV ONE (21:15)
[2022-05-19] MEDS ORDERED: fentaNYL citrate PF 100 MCG/2 ML VIAL ONE ×3 (21:15→23:05)
[2022-05-19] MEDS ORDERED: EPINEPHrine INJ 1 MG/ML AMP ONE (21:20)
[2022-05-19] MEDS ORDERED: BUPIVACAINE 0.5 % 5 MG/1 ML MPF 30ML VIAL ONE (21:20)
--- NOTE | 2022-05-19 21:54 | History & Physical Report ---
Date of Service May 19, 2022 Assessment & Plan (1) Acute cholecystitis: Plan: Patient with early evidence of acute cholecystitis. Afebrile, hemodynamically stable. Admit the patient to surgical service. Plan for the operating room for laparoscopic cholecystectomy. N.p.o., IV fluids. Patient will be started on IV Zosyn. SCDs to bilateral lower extremities. The details of the procedure have been explained to the patient including the risks and benefits. She expressed understanding of this explanation and all of her questions were answered. Consent was obtained. History of Present Illness Chief Complaint: Abdominal pain Primary Care Provider: Jaya Simpson DO Aashish is a 42-year-old female who presents to the emergency department with persistent and worsening right upper quadrant pain. She me says she has had sharp, intermittent right upper quadrant and right back pain ongoing off and on for the past 6 months is not associated with certain foods and there is nothing that she has been able to find to make the pain better. Aashish has been aware that she does have gallstones as she has had occasional right upper quadrant pains in the distant past. Aashish says that the pain became more frequent and constant as of Tuesday at which time she made an appointment to see her primary care physician. This pain has been associated with nausea, chills, bloating and Aashish has been unable to eat since Tuesday. She saw her primary care physician today who advised her to be seen in the emergency department. In the emergency department Aashish does not have any leukocytosis and is afebrile. She is hemodynamically stable. She is extremely tender to the right upper quadrant. An ultrasound was performed which identified stones and subtle early signs of acute cholecystitis. Yeyo has no family history of biliary malignancies. Her paternal grandmother was diagnosed with colon cancer in her late 60s/early 70s. Allergies Allergy/AdvReac Type Severity Reaction Status Date / Time No Known Drug Allergies Allergy none Verified 05/19/22 16:36 Home Medications Medication Instructions Recorded Confirmed Type cetirizine 10 mg tablet (Zyrtec) 10 mg PO QAM 05/16/20 05/19/22 History trazodone 50 mg tablet 50 mg PO HS 05/16/20 05/19/22 History melatonin 5 mg tablet,immediate 5 mg PO HS 06/25/20 05/19/22 History and extended release citalopram 10 mg tablet 10 mg PO QAM 05/19/22 05/19/22 History Past Med/Surg History Medical History Anxiety Asthma exercise induced. no recent problems. Depression Environmental and seasonal allergies History of anesthesia reaction syncope and dizziness s/p general anesthesia. 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 No other associated symptoms. Physical Exam Constitutional: WD/WN, vitals as above Respiratory: normal respiratory effort; no respiratory distress, no labored breathing and does not use accessory muscles Gastrointestinal (Abdomen): Inspection/Auscultation: abdomen normal to inspection, + significant pannus and + abdominal surgical incision (Previous laparoscopic incisions well-healed); abdomen not distended Percussion/Palpation: + abdomen tender (Right upper quadrant), + guarding (Voluntary) and abdomen soft; abdomen not rigid Psychiatric: Affect: no depressed affect and no anxious affect Mood: no anxious mood, no irritable mood and no angry mood Results & Data Results & Data Vital Signs (Past 12 Hours) Vital Signs Temp Pulse Pulse Resp BP BP Pulse Ox 05/19/22 20:08 60 17 113/62 98 05/19/22 18:06 57 L 14 110/71 97 05/19/22 17:16 61 99 05/19/22 15:54 36.3 C L 72 20 137/79 98 O2 Del Method 05/19/22 20:08 Room Air 05/19/22 18:06 Room Air 05/19/22 17:16 Room Air 05/19/22 15:54 Room Air PG Care Time/CCT Total # of Minutes Spent Total Time Spent with Patient: Total time spent is greater than 50% in coordination of care (as documented) at patient's floor/unit and/or counseling patient: [place] [address] INT INP/OBS CARE 140MIN Patient Type New History Problem Focused Exam Problem Focused Medical Decision Making Low Complexity Diagnoses Acute cholecystitis K81.0
[2022-05-19] MEDS ORDERED: ONDANSETRON INJ 2 MG/ML 2 ML VIAL IV PRN (22:26)
[2022-05-19] MEDS ORDERED: ATROPINE SULFATE 0.1 MG/ML 10ML SYR IV PRN (22:26)
[2022-05-19] MEDS ORDERED: ePHEDrine sulfate 50 MG/ML AMP IV PRN (22:26)
[2022-05-19] MEDS ORDERED: HYDROmorphone INJ 2 MG/ML SYR/VIAL IV PRN (22:26)
[2022-05-19] MEDS ORDERED: fentaNYL citrate PF 100 MCG/2 ML VIAL IV PRN (22:26)
--- NOTE | 2022-05-19 22:26 | Anesthesiology Consultation ---
Date of Service May 19, 2022 Assessment & Plan ASA ASA2 Proposed Anesthesia Anesthesia Type: General Risk / Benefits Reviewed With: PT / POA / Parent / Guardian, Accepts Plan and Informed Consent Obtained History Surgery Operation Date: 05/19/22 22:00 Proposed Procedures p Laparoscopic Cholecystectomy - Liberty Cruz DO Height/Weight Height: 5 ft 6 in Weight: 105.1 kg Allergies Allergy/AdvReac Type Severity Reaction Status Date / Time No Known Drug Allergies Allergy none Verified 05/19/22 16:36 Medications Home Medications Medication Instructions Recorded Confirmed Last Taken cetirizine 10 mg tablet (Zyrtec) 10 mg PO QAM 05/16/20 05/19/22 07/11/20 08:00 trazodone 50 mg tablet 50 mg PO 05/16/20 05/19/22 07/10/20 22:30 melatonin 5 mg tablet,immediate 5 mg PO 06/25/20 05/19/22 07/10/20 22:30 and extended release citalopram 10 mg tablet 10 mg PO [facility] 05/19/22 05/19/22 Unknown Active Medications Generic Name Dose Route Start Last Admin Trade Name Freq PRN Reason Stop Dose Admin Sodium Chloride 1,000 mls @ 250 mls/hr 05/19/22 16:15 05/19/22 20:04 Nss 1000ml IV 06/18/22 16:14 250 mls/hr .Q4H SCHUYLER Administration Morphine Sulfate 4 mg 05/19/22 16:14 05/19/22 19:30 Morphine Sulfate 4 Mg/Ml 1 Ml Carp\\Vial IV 06/02/22 16:13 4 mg Q1H PRN Administration Pain NPO Date Last Intake of Fluids: 05/19/22 Time Last Intake of Fluids: 15:00 Date Last Intake of Solids: 05/19/22 Time Last Intake of Solids: 13:30 Past Medical History Medical History Anxiety Asthma exercise induced. no recent problems. Depression Environmental and seasonal allergies History of anesthesia reaction syncope and dizziness s/p general anesthesia. "passes out after anesthesia when she first stands up" Obesity Sleep apnea Exercise / Class Metabolic Activity II 4-5 Yardwork/Stairs/Walk up hill Past Family History Family History Grandmother (Maternal) Diabetes Grandmother (Paternal) Colorectal cancer Grandfather (Maternal) Cleft palate Past Surgical History Surgical History History of hysterectomy With rectocele and cystocele repair History of laparoscopy S/P appendectomy S/P bilateral breast reduction S/P wisdom tooth extraction Past Anesthesia History No Hx of Anesthesia Complications and No Family Hx of Anesthesia Complications History of PONV No Hx of PONV and No Hx of Motion Sickness Social History Smoking Status: Never smoker Hx Alcohol Use: Yes alcohol intake frequency: holidays/special occasions only Hx Substance Use: No substance use type: does not use Review of Systems denies fever/cough/ colds/ chest pain/ SOB/ +ELIAS denies ELIAS Physical Exam Vital Signs Last Vital Signs Temp 36.3 C L 05/19/22 15:54 Pulse 65 05/19/22 21:53 Resp 15 05/19/22 21:53 BP 111/73 05/19/22 21:53 Pulse Ox 97 05/19/22 21:53 O2 Del Method Room Air 05/19/22 21:53 ENMT Mouth: no TMJ abnormality and no dentition abnormality Thyromental Distance: > or= 3.5 Finger Breadths Mallampati Class: III Neck neck extension not limited Respiratory normal respiratory effort; no respiratory distress Auscultation: lungs clear to auscultation bilaterally Cardiovascular Rate/Rhythm: regular rate and regular rhythm Neurologic moves all extremities Psychiatric Orientation: alert and oriented x 3 Testing Laboratory Results 05/19/22 17:25 05/19/22 16:37
[2022-05-19] MEDS ORDERED: GLYCOPYRROLATE 0.2 MG/ML VIAL ONE (22:50)
[2022-05-19] MEDS ORDERED: NEOSTIGMINE METHYLSULFATE 1 MG/ML 10ML VIAL ONE (22:50)
[2022-05-19] MEDS ORDERED: ONDANSETRON INJ 2 MG/ML 2 ML VIAL ONE (22:54)
[2022-05-19] MEDS ORDERED: DEXAMETHASONE SOD INJ 4 MG/ML VIAL ONE (22:54)
[2022-05-20] MEDS ORDERED: KETOROLAC 30 MG/ML VIAL ONE (00:03)
--- NOTE | 2022-05-20 00:28 | Post Operative Brief Note ---
PG Immediate Post Op with CF Date of Surgery May 20, 2022 Pre & Post Diagnosis Operation Date: 05/19/22 22:00 Pre-Op Diagnosis: acute cholecystitis Post-Op Diagnosis: acute cholecystitis I identified the patient and participated in the time-out.: Yes Procedure Operation Date: 05/19/22 22:00 Actual Procedures p Laparoscopic Cholecystectomy(Not Applicable) - Liberty Cruz DO Surgeon Liberty Cruz DO Plating Tank Operator Nik Purvis Estimated Blood Loss 30 Findings Consistent with Post-Op Diagnosis Acutely inflamed gallbladder containing multiple large stones Specimens Specimen Description: A. Gallbladder and contents Complications No immediate complications
--- NOTE | 2022-05-20 00:37 | Operative Report ---
PG Post Operative Report Pre & Post Diagnosis Operation Date: 05/19/22 22:00 Pre-Op Diagnosis: acute cholecystitis Post-Op Diagnosis: acute cholecystitis I identified the patient and participated in the time-out.: Yes Procedure Operation Date: 05/19/22 22:00 Actual Procedures p Laparoscopic Cholecystectomy(Not Applicable) - Liberty Cruz DO Surgeon Liberty Cruz DO Front Office Supervisor Nik Purvis Estimated Blood Loss 30 Findings Consistent with Post-Op Diagnosis Specimens Gallbladder containing stones Complications No immediate complications Description of Procedure The patient was brought back to the operating room and placed on the operating room table in supine position. She was connected to cardiac and O2 monitoring. SCDs were applied. The patient was administered general anesthesia and a secure airway was inserted. The abdomen was prepped and draped in typical sterile fashion. A timeout was conducted. A small stab incision was made just superior to the umbilicus and a Veress needle was used to access the intra-abdominal space. CO2 insufflation was initiated to a goal pressure of 50 mmHg. A 5 mm Visiport trocar was inserted with a 5 mm laparoscope with direct visualization. The epigastric region was brought into view with the laparoscope a small incision was made with a 15 blade and an 11 m trocar was inserted under direct visualization. 2 additional small stab incisions were made at the right subcostal border and two 5 mm trocars were inserted under direct visualization. There were no injuries noted to be made by any of the trocars that were inserted. The gallbladder was noted in the right upper quadrant and appeared to be distended. Grasper was used to grasp the fundus of the gallbladder excessive soft adhesions of omentum wrapped around the gallbladder. This took a significant amount of dissection to tease away these adhesions in order to expose the infundibulum. This was carried out using alternating blunt dissection and cautery. The infundibulum was then brought into view and grasped and retracted laterally. The cystic triangle was dissected to expose the cystic duct which was clipped with two 5 mm clips proximally and 1 distally. The cystic duct was transected with a laparoscopic scissor. The cystic artery was also identified and clipped with two 5 mm clips proximally 1 distally. The cystic artery was also transected with a laparoscopic scissor. There was a posterior branch of the cystic artery enco untered that began to bleed during continued blunt dissection of the gallbladder away from the liver bed. This was isolated clipped in a similar fashion and transected. The gallbladder was then dissected away from the liver bed using alternating cautery and blunt dissection. The gallbladder was held in the right upper quadrant while the liver bed was copiously irrigated and suctioned. There was some oozing spots of the liver bed these were controlled with cautery. Once hemostasis was achieved attention was taken to the gallbladder which was placed in an Endo Catch bag and removed. The epigastric incision had to be enlarged for removal as the gallbladder contained multiple very large stones. The gallbladder had to be opened in order to remove some of the stones to allow for the gallbladder to be removed from the abdomen. Once the gallbladder was removed along with the stones this was sent to pathology for further analysis. There was bleeding at the epigastric incision which was controlled with suture ligation of the muscle and fascia using a 0 Vicryl suture. The 5 mm laparoscope was reinserted into the abdomen to check for bleeding at this incision on the inside of the abdomen. There was a small amount of oozing from the edge of the peritoneum at this trocar site which was controlled with cautery. Once it was discharged confirmed that there was no bleeding at any sites the liver bed was also rechecked then there was no bleeding at this location either. All instruments were removed from the abdomen and CO2 insufflation was discontinued. Excess CO2 was evacuated from the abdomen. The trocars were removed as well. The epigastric incision was copiously irrigated due to spillage of bile and stones at that site. Local anesthetic was injected into the skin and subcutaneous tissue at all 4 incision sites and the dermis was brought together with 4-0 Vicryl sutures. The skin incisions were all dressed with Dermabond. The patient tolerated the procedure well. She was awakened from anesthesia and the secured airway was removed. She was transferred to recovery in stable condition. I attest to the content of the Intraoperative Record and any orders documented therein. Any exceptions are noted below.
--- NOTE | 2022-05-20 00:46 | Anesthesiology Progress Note ---
Date of Service May 20, 2022 Anesthesia Post Procedure Vital Signs Vital Signs: Temp Pulse Pulse Resp BP BP Pulse Ox 05/20/22 00:35 89 20 95 05/20/22 00:35 132/78 05/20/22 00:30 99 H 16 96 05/20/22 00:30 128/77 05/20/22 00:29 36.5 C 125/79 05/20/22 00:29 97 H 19 96 05/20/22 00:28 100 H 17 97 05/19/22 21:53 65 15 111/73 97 05/19/22 20:08 60 17 113/62 98 05/19/22 18:06 57 L 14 110/71 97 05/19/22 17:16 61 99 05/19/22 15:54 36.3 C L 72 20 137/79 98 O2 Del Method 05/20/22 00:35 05/20/22 00:35 05/20/22 00:30 05/20/22 00:30 05/20/22 00:29 05/20/22 00:29 05/20/22 00:28 05/19/22 21:53 Room Air 05/19/22 20:08 Room Air 05/19/22 18:06 Room Air 05/19/22 17:16 Room Air 05/19/22 15:54 Room Air Pain Intensity Right Abdomen: Pain Intensity: 0 Transfer of Care Handoff Completed per policy Notes Mental Status: alert / awake / arousable and participated in evaluation Patient Amnestic to Procedure: Yes Nausea / Vomiting: adequately controlled Pain: adequately controlled Airway Patency, RR, SpO2: stable & adequate BP & HR: stable & adequate Hydration State: stable & adequate Anesthetic Complications: no major complications apparent and Pt Satisfied with anesthetic care
[2022-05-20] MEDS ORDERED: ONDANSETRON INJ 2 MG/ML 2 ML VIAL IV PRN (01:35)
[2022-05-20] MEDS ORDERED: ACETAMINOPHEN 1,000 MG/100 ML VIAL IV PRN (01:35)
[2022-05-20] MEDS: LACTATED RINGER'S 1,000 ML IV SCH ×3 (01:41→21:33)
[2022-05-20] MEDS: MoRPHine SULFATE 4 MG/ML 1 ML CARP\\VIAL IV PRN ×3 (01:46→09:09)
[2022-05-20] MEDS: PIPERACILLIN/TAZOBACTAM 3.375 GM in DEXTROSE 5% 100 ML IV SCH ×3 (01:55→17:14)
[2022-05-20] MEDS: SODIUM CHLORIDE 0.9% 1000ML 1,000 ML IV SCH (03:04)
[2022-05-20 07:24] LABS: Hematocrit (blood only) 39.2 % (37.0-47.0); Hemoglobin 13.4 g/dl (12.0-16.0); Mean Corpuscular Hemoglobin 29.7 pg (25.0-34.0); Mean Corpuscular Hgb Conc 34.2 g/dL (32.0-36.0); Mean Corpuscular Volume 86.9 fL (80.0-100.0); Mean Platelet Volume 8.9 fL (9.4-12.4); Platelet Count 253 K/uL (130-400); RDW Coefficient of Variation 12.6 % (11.5-14.5); RDW Standard Deviation 39.7 fL (36.4-46.3); Red Blood Count 4.51 M/uL (4.20-5.40); White Blood Count 7.67 K/ul (4.8-10.8)
[2022-05-20 07:41] LABS: Albumin Globulin Ratio 1.5 (0.9-2); Albumin Level 4.1 gm/dl (3.4-5.0); BUN Creatinine Ratio 13.4 (10-20); Bilirubin,Total 0.5 mg/dl (0.2-1.0); Calcium 8.5 mg/dl (8.6-10.3); Creatinine Clr Calc Pharmacy 135.3 ml/min; Est GFR (African American) 126.5 ml/min; Est GFR (Non-African American) 109.2 ml/min; Globulin 2.7 gm/dl (2.5-4.0); Potassium 3.7 mmol/L (3.5-5.1); Total Protein 6.8 gm/dl (6.0-8.3)
[2022-05-20 08:09] LABS: Basophils # (auto) 0.01 K/uL (0-0.2); Basophils % (auto) 0.1 %; Immature Granulocytes # (auto) 0.03 K/uL (0.01-0.20); Immature Granulocytes % (auto) 0.4 %; Lymphocytes # (auto) 0.57 K/uL (1.2-3.4); Lymphocytes % (auto) 7.4 %; Monocytes # (auto) 0.11 K/uL (0.11-0.59); Monocytes % (auto) 1.4 %; Neutrophils # (auto) 6.95 K/uL (1.40-6.50); Neutrophils % (auto) 90.7 %
[2022-05-20] MEDS: CITALOPRAM 20 MG TAB PO SCH (09:04)
[2022-05-20] MEDS: CETIRIZINE HCL 10 MG TABLET PO SCH (09:04)
--- NOTE | 2022-05-20 12:39 | Surgery Progress Note ---
Date of Service May 20, 2022 Assessment & Plan (1) Acute cholecystitis: Plan: POD 1 s/p laparoscopic cholecystectomy. HD stable and afebrile. No leukocytosis, H/H is stable and LFTs without significant derangements Patient's pain is not well controlled and she is experiencing nausea potentially with the pain medication. Currently receiving Morphine Will switch her to Dilaudid to see if this controls the pain and is not associated with nausea. Zofran is on board. If her nausea becomes under control, advance diet as tolerated. Plan to convert her to oral pain medication at that time as well. Continue 24 hours of antibiotics post op Incentive spirometer, SCDs D/C planning for when patient's pain is controlled on oral pain medications and she is tolerating oral intake. Admission and Anticipated Discharge Date Admission Date: May 20, 2022 Subjective Patient seen and examined this am. C/o continued right sided abdominal pain along with nausea. Physical Exam Constitutional: + obese; no acute distress, no altered mental status and + uncomfortable Respiratory: normal respiratory effort; no respiratory distress, no labored breathing and does not use accessory muscles Gastrointestinal (Abdomen): Incisions with skin glue. There is some dried brownish exudate noted in the glue at the epigastric skin incision. There is no bruising. The abdomen does not appear distended. Results & Data Vital Signs (Past 12 Hours) Vital Signs Temp Pulse Pulse Resp BP BP Pulse Ox 05/20/22 07:42 36.7 C 78 16 117/73 94 05/20/22 04:25 36.9 C 78 18 117/77 94 05/20/22 02:25 36.7 C 79 18 119/78 94 05/20/22 03:25 36.7 C 83 16 124/81 96 05/20/22 01:56 36.7 C 77 18 119/80 94 05/20/22 01:32 36.7 C 83 18 115/79 95 05/20/22 01:10 36.8 C 82 19 93 05/20/22 01:10 130/82 05/20/22 01:05 124/85 05/20/22 01:05 77 20 92 05/20/22 01:00 77 17 93 05/20/22 01:00 124/79 05/20/22 00:55 88 12 93 05/20/22 00:55 123/85 05/20/22 00:50 79 16 93 05/20/22 00:50 134/84 05/20/22 00:45 134/76 05/20/22 00:45 85 14 94 05/20/22 00:40 86 15 96 05/20/22 00:40 138/89 O2 Del Method 05/20/22 07:42 Room Air 05/20/22 04:25 Room Air 05/20/22 02:25 Room Air 05/20/22 03:25 Room Air 05/20/22 01:56 Room Air 05/20/22 01:32 Room Air 05/20/22 01:10 Room Air 05/20/22 01:10 05/20/22 01:05 05/20/22 01:05 05/20/22 01:00 05/20/22 01:00 05/20/22 00:55 05/20/22 00:55 05/20/22 00:50 05/20/22 00:50 05/20/22 00:45 05/20/22 00:45 05/20/22 00:40 Room Air 05/20/22 00:40 PG Care Time/CCT Total # of Minutes Spent Total Time Spent with Patient: Total time spent is greater than 50% in coordination of care (as documented) at patient's floor/unit and/or counseling patient: Coding Level of Care Code 11106 SUB INP/OBS CARE 2/35MIN Diagnoses Acute cholecystitis K81.0
[2022-05-20] MEDS: HYDROmorphone INJ 0.5 MG/0.5 ML SYR IV PRN ×2 (12:44→20:42)
[2022-05-20] MEDS: oxyCODONE HCL IR 5 MG TAB (IMMEDIATE RELEASE) PO PRN (17:14)
[2022-05-20] MEDS ORDERED: traZODone HCL 50 MG TAB PO SCH (21:00)
[2022-05-20] MEDS ORDERED: MELATONIN 3 MG TAB PO SCH (21:00)
[2022-05-21] MEDS: PIPERACILLIN/TAZOBACTAM 3.375 GM in DEXTROSE 5% 100 ML IV SCH ×2 (02:23→10:31)
[2022-05-21] MEDS: oxyCODONE HCL IR 5 MG TAB (IMMEDIATE RELEASE) PO PRN ×3 (02:43→14:48)
[2022-05-21] MEDS: LACTATED RINGER'S 1,000 ML IV SCH (07:58)
[2022-05-21] MEDS: CITALOPRAM 20 MG TAB PO SCH (07:58)
[2022-05-21] MEDS: CETIRIZINE HCL 10 MG TABLET PO SCH (07:58)
--- NOTE | 2022-05-21 08:29 | Surgery Progress Note ---
I saw this patient with the surgical PA. I agree with the plan. Date of Service May 21, 2022 Assessment & Plan (1) Acute cholecystitis: Plan: s/p lap douglas labs are pending. vitals are stable clinically she is feeling much better. no nausea. pain controlled. tolerating clears incisions c/d/i Will advance diet this AM and see how she fairs. Try PO pain Possible discharge to home later today pending progress Will need f/u with Dr. Cruz in 2 weeks Admission and Anticipated Discharge Date Admission Date: May 20, 2022 Subjective Patient is doing better than yesterday. Denies nausea/vomiting. Tolerating clears. Pain controlled with new regimen. She is passing flatus and walking the halls. Physical Exam Physical Exam: awake/alert, no distress Respiratory: normal respiratory effort Gastrointestinal (Abdomen): Inspection/Auscultation: + abdominal surgical incision (c/d/i ); abdomen not distended Percussion/Palpation: + abdomen tender (expected karla incisional discomfort ) and abdomen soft Results & Data Vital Signs (Past 12 Hours) Vital Signs Temp Pulse Resp BP Pulse Ox O2 Del Method 05/21/22 07:51 36.5 C 56 L 17 110/69 96 Room Air 05/20/22 23:00 37 C 64 18 106/69 92 Room Air PG Care Time/CCT Total # of Minutes Spent Total Time Spent with Patient: Total time spent is greater than 50% in coordination of care (as documented) at patient's floor/unit and/or counseling patient: Coding Level of Care Code 80338 Post Operative Follow-Up Diagnoses Acute cholecystitis K81.0
[2022-05-21 08:39] LABS: Basophils # (auto) 0.02 K/uL (0-0.2); Basophils % (auto) 0.3 %; Eosinophils # (auto) 0.07 K/uL (0-0.50); Eosinophils % (auto) 1.2 %; Hematocrit (blood only) 38.2 % (37.0-47.0); Hemoglobin 13.3 g/dl (12.0-16.0); Immature Granulocytes # (auto) 0.01 K/uL (0.01-0.20); Immature Granulocytes % (auto) 0.2 %; Lymphocytes # (auto) 2.57 K/uL (1.2-3.4); Mean Corpuscular Hemoglobin 29.9 pg (25.0-34.0); Mean Corpuscular Hgb Conc 34.8 g/dL (32.0-36.0); Mean Corpuscular Volume 85.8 fL (80.0-100.0); Monocytes # (auto) 0.39 K/uL (0.11-0.59); Monocytes % (auto) 6.5 %; Neutrophils # (auto) 2.92 K/uL (1.40-6.50); Neutrophils % (auto) 48.8 %; Platelet Count 266 K/uL (130-400); RDW Coefficient of Variation 12.8 % (11.5-14.5); RDW Standard Deviation 39.8 fL (36.4-46.3); Red Blood Count 4.45 M/uL (4.20-5.40); White Blood Count 5.98 K/ul (4.8-10.8)
[2022-05-21 08:57] LABS: BUN Creatinine Ratio 9.9 (10-20); Bilirubin Direct 0.1 mg/dl (0-0.2); Bilirubin,Total 0.5 mg/dl (0.2-1.0); Calcium 8.7 mg/dl (8.6-10.3); Creatinine Clr Calc Pharmacy 111.9 ml/min; Est GFR (African American) 104.6 ml/min; Est GFR (Non-African American) 90.2 ml/min; Potassium 3.4 mmol/L (3.5-5.1); Total Protein 6.4 gm/dl (6.0-8.3)
--- NOTE | 2022-05-24 08:51 | Discharge Summary ---
Date of Service May 21, 2022 Admission HPI Per Admitting Provider Aashish is a 42-year-old female who presents to the emergency department with persistent and worsening right upper quadrant pain. She me says she has had sharp, intermittent right upper quadrant and right back pain ongoing off and on for the past 6 months is not associated with certain foods and there is nothing that she has been able to find to make the pain better. Aashish has been aware that she does have gallstones as she has had occasional right upper quadrant pains in the distant past. Aashish says that the pain became more frequent and constant as of Tuesday at which time she made an appointment to see her primary care physician. This pain has been associated with nausea, chills, bloating and Aashish has been unable to eat since Tuesday. She saw her primary care physician today who advised her to be seen in the emergency department. In the emergency department Aashish does not have any leukocytosis and is afebrile. She is hemodynamically stable. She is extremely tender to the right upper quadrant. An ultrasound was performed which identified stones and subtle early signs of acute cholecystitis. Yeyo has no family history of biliary malignancies. Her paternal grandmother was diagnosed with colon cancer in her late 60s/early 70s. Discharge Data Procedures Performed Operation Date: 05/19/22 22:00 Actual Procedures p Laparoscopic Cholecystectomy(Not Applicable) - Liberty Cruz DO Hospital Course (1) Acute cholecystitis: Aashish underwent a laparoscopic cholecystectomy on the night of May 19, 2022 and was admitted to surgical services for further observation. Aashish suffered with nausea on postop day 1 and her diet was not advanced until postop day 2 at which time nausea had completely resolved and her pain was better controlled on oral pain medication as well. Aashish was discharged on May 21, 2022 with i nstructions for outpatient follow-up.
== END 2022-05-21 16:27 | disposition home or self-care (01) ==
LOC: ED 15:52 → 3N 21:53 → OR 21:53

== ENCOUNTER 2022-12-20 16:51 | Observation (INO) ==
--- NOTE | 2022-12-20 17:07 | ED Triage Note ---
Date of Service December 20, 2022 History of Present Illness This patient was briefly evaluated while in triage. An abbreviated physical exam was performed. This patient is a 42-year-old Female who presents to the ED for evaluation of right rib/side pain over the past 5 days. The patient reports that it radiates around into the back. She also reports some pain that radiates up into the right chest and into the shoulder. The pain is worsened with deep breathing. She reports nausea and bloating. The pain significantly worsened today. Patient reports abdominal pain in the right upper quadrant with sharp stabbing pain. Patient rates her discomfort an 8 out of 10. Patient is status post cholecystectomy, appendectomy and hysterectomy with salpingectomy. Physical Exam CONSTITUTIONAL: Healthy and well nourished. Patient appears in moderate di scomfort. HEENT: No scleral icterus or conjunctival injection/pallor. NECK: Full active range of motion without discomfort. LYMPHATICS: No cervical chain adenopathy. RESPIRATORY: Clear to auscultation bilaterally with no wheezing, crackles, rhonchi or stridor. Deep breathing worsens the patient's discomfort. CARDIOVASCULAR: Regular rate and rhythm with no murmurs, rubs or gallops. GASTROINTESTINAL: Bowel sounds present in all quadrants. Patient has right upper quadrant tenderness to palpation. MUSCULOSKELETAL: Full range of motion of all joints without discomfort. INTEGUMENTARY: No rash or other significant dermatologic conditions noted. HEMATOLOGIC: No ecchymosis or petechiae. PSYCHIATRIC: Positive affect. NEUROLOGIC: No focal neurologic deficits noted. Initial orders for labs and / or imaging were placed and patient was placed in the waiting area until a bed is available. Please see further documentation for the full ED course.
[2022-12-20 17:53] LABS: Basophils # (auto) 0.03 K/uL (0.00-0.20); Basophils % (auto) 0.4 %; Eosinophils # (auto) 0.06 K/uL (0.00-0.50); Eosinophils % (auto) 0.8 %; Hematocrit (blood only) 38.9 % (37.0-47.0); Hemoglobin 13.1 g/dl (12.0-16.0); Immature Granulocytes # (auto) 0.01 K/uL (0.01-0.20); Immature Granulocytes % (auto) 0.1 %; Lymphocytes # (auto) 1.87 K/uL (1.20-3.40); Lymphocytes % (auto) 25.3 %; Mean Corpuscular Hemoglobin 29.6 pg (25.0-34.0); Mean Corpuscular Hgb Conc 33.7 g/dL (32.0-36.0); Mean Platelet Volume 9.1 fL (9.4-12.4); Monocytes # (auto) 0.41 K/uL (0.11-0.59); Monocytes % (auto) 5.6 %; Neutrophils % (auto) 67.8 %; Platelet Count 298 K/uL (130-400); RDW Coefficient of Variation 12.4 % (11.5-14.5); Red Blood Count 4.42 M/uL (4.20-5.40); White Blood Count 7.38 K/ul (4.8-10.8)
[2022-12-20 18:10] LABS: Alanine Aminotransferase 12 U/L (7-52); Albumin Globulin Ratio 1.6 (0.9-2); Albumin Level 4.7 gm/dl (3.4-5.0); Alkaline Phosphatase 56 U/L (34-104); Anion Gap 6 (3-11); Aspartate Aminotransferase 17 U/L (13-39); Bilirubin,Total 0.4 mg/dl (0.2-1.0); Blood Urea Nitrogen 10 mg/dl (6-23); Calcium 9.6 mg/dl (8.6-10.3); Carbon Dioxide 28 mmol/L (21-32); Chloride 105 mmol/L (98-107); Creatinine Clr Calc Pharmacy 112.3 ml/min; Est GFR (African American) 101.5 ml/min; Est GFR (Non-African American) 87.6 ml/min; Glucose 93 mg/dl (70-99(Fasting)); Lipase 13 U/L (11-82); Potassium 4.1 mmol/L (3.5-5.1); Sodium 139 mmol/L (136-145); Total Protein 7.7 gm/dl (6.0-8.3)
[2022-12-20 18:16] LABS: Troponin I High Sensitivity < 2.3 pg/ml (0-14)
[2022-12-20 18:23] LABS: D Dimer 340 ug/L FEU (0-500); INR 0.9 (0.9-1.1); Partial Thromboplastin Ratio 0.9; Partial Thromboplastin Time 26.1 Seconds (21.0-31.0); Prothrombin Time 9.8 Seconds (9.0-12.0)
[2022-12-20] MEDS ORDERED: OPTIRAY 320 500ml IV ONE (18:31)
--- NOTE | 2022-12-20 19:33 | CT Scan Report ---
Exam(s): CT ABDOMEN + PELVIS With Contrast IV Amt: 111 ml optiray 320 EXAM: CT Abdomen and Pelvis With Intravenous Contrast CLINICAL HISTORY: Reason for exam: RUQ abd pain. TECHNIQUE: Axial computed tomography images of the abdomen and pelvis with intravenous contrast. CTDI is 70 mGy and DLP is 2423.33 mGy-cm. Automated exposure control was utilized for the study. A dose lowering technique was utilized adhering to the principles of ALARA. CONTRAST: Patient received 111 ml optiray 320 of IV contrast COMPARISON: June 25, 2020 FINDINGS: Lung bases: Unremarkable. No mass. No consolidation. ABDOMEN: Liver: Unremarkable. No mass. Gallbladder and bile ducts: The gallbladder has been removed. No biliary duct dilation or choledocholithiasis is seen. Pancreas: Unremarkable. No mass. No ductal dilation. Spleen: Unremarkable. No splenomegaly. Adrenals: Unremarkable. No mass. Kidneys and ureters: Unremarkable. No solid mass. No hydronephrosis. Stomach and bowel: Unremarkable. No obstruction. No mucosal thickening. PELVIS: Appendix: There are surgical clips in the right lower quadrant. The appendix is not visible and may have been removed. There is a trace amount of free fluid in the pelvis dependently. No acute inflammatory changes are seen involving the bowel. Bladder: Unremarkable. No mass. Reproductive: The uterus has been removed. ABDOMEN and PELVIS: Intraperitoneal space: See above. Bones/joints: No acute fracture. No dislocation. Soft tissues: Unremarkable. Vasculature: Unremarkable. No abdominal aortic aneurysm. Lymph nodes: Unremarkable. No enlarged lymph nodes. IMPRESSION: 1. The gallbladder has been removed. No biliary duct dilation or choledocholithiasis is seen. Trace right pleural effusion measuring a few millimeters. 2. There are surgical clips in the right lower quadrant. The appendix is not visible and may have been removed. There is a trace amount of free fluid in the pelvis dependently. No acute inflammatory changes are seen involving the bowel. Electronically signed by: Tito Gaytan MD 12/20/22 19:32 PM
--- NOTE | 2022-12-20 19:35 | CT Scan Report ---
Exam(s): CTA CHEST IV Amt: 111 ml optiray 320 EXAM: CT Angiography Chest With Intravenous Contrast CLINICAL HISTORY: Reason for exam: PE. TECHNIQUE: Axial computed tomographic angiography images of the chest with intravenous contrast. CTDI is 70 mGy and DLP is 2423.33 mGy-cm. Automated exposure control was utilized for the study. A dose lowering technique was utilized adhering to the principles of ALARA. MIP reconstructed images were created and reviewed. COMPARISON: No relevant prior studies available. FINDINGS: Pulmonary arteries: The pulmonary arterial tree is well opacified with contrast. No pulmonary emboli are identified. Aorta: The thoracic aorta is nondilated. There is no aneurysm or dissection. Lungs: Trace amount of dependent subsegmental atelectasis. The lungs are otherwise clear. No acute focal infiltration or consolidation is seen. Slight bronchial wall thickening suggest possible mild bronchitis. Pleural space: Trace bilateral pleural effusions measuring 2-3 mm. This is nonspecific. No pneumothorax. Heart: Unremarkable. No cardiomegaly. No significant pericardial effusion. No evidence of RV dysfunction. Bones/joints: Mild degenerative changes in the spine. No fracture or subluxation. Soft tissues: Unremarkable. Lymph nodes: Unremarkable. No enlarged lymph nodes. IMPRESSION: 1. Trace amount of dependent subsegmental atelectasis. The lungs are otherwise clear. No acute focal infiltration or consolidation is seen. Slight bronchial wall thickening suggest possible mild bronchitis. 2. The pulmonary arterial tree is well opacified with contrast. No pulmonary emboli are identified. 3. The thoracic aorta is nondilated. There is no aneurysm or dissection. Electronically signed by: Tito Gaytan MD 12/20/22 19:34 PM
--- NOTE | 2022-12-20 19:54 | Emergency Department Note ---
ED Provider Note History of Present Illness Chief Complaint: Flank Pain Stated Complaint: RT SIDE ABD TO BACK PAIN Time Seen by Provider: 12/20/22 19:33 Patient is a 42-year-old female who presents emergency department for evaluation of right upper quadrant abdominal pain. She is status postcholecystectomy this spring, remote hysterectomy and appendectomy. She states that she developed right upper quadrant pain, up under the ribs that wraps around to the right upper back on 4 days ago. She states she felt bloated and constipated. The pain got a little bit better over the weekend then returned today. She reports associated nausea. She states she is now having loose stools, that are nonbloody and nonmelanotic. No fevers. She tried Tylenol and ibuprofen without relief in her symptoms. She rates her pain a 7/10. She states the pain reminds her of her gallbladder attacks. No chest pain. No shortness of breath. No reflux or indigestion. Home Medications Medication Instructions Recorded Confirmed Type cetirizine 10 mg tablet (Zyrtec) 10 mg PO QAM 05/16/20 12/20/22 History trazodone 50 mg tablet 75 mg PO HS 05/16/20 12/20/22 History melatonin 5 mg tablet,immediate 5 mg PO HS 06/25/20 12/20/22 History and extended release citalopram 10 mg tablet 20 mg PO QAM 05/19/22 12/20/22 History Allergies Allergy/AdvReac Type Severity Reaction Status Date / Time No Known Allergies Allergy Verified 12/20/22 20:06 Past Med/Surg History Medical History (Updated 12/20/22 @ 23:20 by Jenni Monterroso) Anxiety Asthma exercise induced. no recent problems. Depression Environmental and seasonal allergies History of anesthesia reaction syncope and dizziness s/p general anesthesia. "passes out after anesthesia when she first stands up" Obesity Sleep apnea Surgical History (Updated 05/20/22 @ 13:06 by Cyndi Umana RN) History of hysterectomy With rectocele and cystocele repair History of laparoscopy Hx laparoscopic cholecystectomy (05/19/22) Laparoscopic Cholecystectomy(Not Applicable) - Liberty Cruz DO S/P appendectomy S/P bilateral breast reduction S/P wisdom tooth extraction Family History Grandmother (Maternal) Diabetes Grandmother (Paternal) Colorectal cancer Grandfather (Maternal) Cleft palate Social History Smoking Status: Never smoker Tobacco Type: Cigarettes Second Hand Exposure: No; Do You Dip or Chew Tobacco: No; Hx Alcohol Use: Yes Hx Substance Use: No Preferred Language: Kazakh Communication Ability: Effective Visual Impairment: No Limitations Cafeteria Supervisor Required: No Beliefs That Will Affect Care: None marital status: marital status details: Narciso Hu ([phone] Current Living Situation: Spouse Current Living Situation Comment: lives with spouse, sons, dogs, cats-spouse changing litter current occupational status: employed current occupation: [employer] Feels Safe at Home: Yes Diet: regular Assistive Devices: None Physical Exam Vital Signs Vital Signs - 24 hr 12/20/22 17:03 12/20/22 19:02 12/20/22 19:02 Temperature 36.4 C L Temperature Source Temporal Artery Scan Pulse Rate 74 Pulse Rate [Finger] 56 L Respiratory Rate 18 20 Respiratory Effort / Characteristics Non-Labored Spontaneous Respiratory Depth Normal Respiratory Pattern Regular Blood Pressure 128/87 Blood Pressure [Right Arm] 122/69 Blood Pressure Mean 100 Blood Pressure Mean [Right Arm] 86 Pulse Oximetry 99 99 99 Oxygen Delivery Method Room Air Room Air Room Air Sepsis Recent Fever Within 48 Hours No Sepsis New/Unexplained Change in Mental Status N/A Sepsis Action Taken by Nursing No Action Required 12/20/22 21:00 12/20/22 23:00 Temperature Temperature Source Pulse Rate Pulse Rate [Finger] 56 L 76 Respiratory Rate 18 22 Respiratory Effort / Characteristics Respiratory Depth Respiratory Pattern Blood Pressure Blood Pressure [Right Arm] 139/85 146/77 H Blood Pressure Mean Blood Pressure Mean [Right Arm] 103 100 Pulse Oximetry 96 98 Oxygen Delivery Method Room Air Sepsis Recent Fever Within 48 Hours Sepsis New/Unexplained Change in Mental Status Sepsis Action Taken by Nursing CONSTITUTIONAL: Uncomfortable, tearful 42-year-old female laying on the gurney, holding her right upper quadrant. EYES: Pupils equal, round, reactive to light and accommodation. EOMs intact without nystagmus. Sclera are anicteric. ENT: Tympanic membranes intact, with normal landmarks. External canals are clear. Oral and nasopharynx are clear. Mucous membranes are moist, no lesions, tongue and gums appear normal. CARDIOVASCULAR: Regular rate and rhythm. Peripheral pulses easy to palpable. RESPIRATORY: Breath sounds equal and clear to auscultation. GI: Bowel sounds are present. Well-healed surgical scars are noted. Abdomen is soft, nondistended, tender in the right upper quadrant/off the right costal margin. MUSCULOSKELETAL: Full range of motion of extremities x 4 with good strength. No cyanosis, edema, joint tenderness or swelling. No deformity. INTEGUMENTARY: No lesions or rash, normal skin turgor. NEUROLOGICAL: Alert, oriented, and cooperative. Cranial nerves, sensation and strength grossly intact. Pupils round, equal, and react to light, EOMs are full. LYMPH: No lymphadenopathy. Course Course The patient was seen and assessed as above. External medical records were reviewed including prior general surgery notes. Critical pathways were implemented prior to my assessment of the patient from triage. Orders included IV lock, CBC with differential, CMP, lipase, coags, troponin, D-dimer, urinalysis, EKG and CT scan of the chest, abdomen and pelvis. Laboratory studies per my interpretation note no acute findings. No leukocytosis, no anemia, no thrombocytopenia. Coags are normal. D-dimer is not elevated. Electrolytes and transaminases are all within normal limits. No evidence for CLAUDIA. A single, high-sensitivity troponin was negative and not indicative of ACS. Lipase is not negative of acute pancreatitis. CT scanning of the chest per my interpretation notes no evidence for pulmonary embolism. No consolidation or infiltration or acute infectious process. CT scan of the abdomen and pelvis with IV contrast notes postsurgical changes consistent with hysterectomy, cholecystectomy and appendectomy. No ductal dilatation. No choledocholithiasis. No acute infectious or inflammatory findings seen in the bowel. All studies were resulted and interpreted and reviewed by myself prior to my full assessment of the patient in Room B9. I did review all studies with her at length. She was still having significant pain and was given morphine 4 mg and Zofran 4 mg IV. She had just provided a urine sample and this was sent for microscopy. Urinalysis per my interpretation is completely clear, without signs of infection. Patient was reassessed. She was crying in pain, stating that the morphine had only briefly helped and pain had returned when she tried to roll onto her right side. She was medicated with an additional Zofran 4 mg IV, Pepcid 20 mg IV, Toradol 50 mg IV and morphine 6 mg IV. Patient was again reassessed after roughly 30 minutes. She reported that her pain and got from a "10/10 to a 8/10." She is still holding her abdomen and crying in pain. I again reviewed with her options including discharge to home with pain and nausea medication and close PCP and/or general surgery follow-up. The patient is quite adamant that she cannot go home in this condition. She is "incapacitated" from her pain and feels certain that if she goes home which she will be back in the emergency department for reassessment. Discussed that I can review her with the hospitalist team for inpatient care. She would like to pursue this option. She was medicated with Dilaudid 0.5 mg IV. Case reviewed with attending physician, Dr. Gracia, who agrees with the ED work-up. Also discussed the patient with remote encoding center manager. Consultation was placed with the [facility] hospitalist service for further care and evaluation, patient was discussed with Dr. Perez. Differential diagnosis: GERD, gastritis, peptic ulcer disease, perforated ulcer, esophagitis, acute pancreatitis, bowel obstruction, scarring or adhesions, choledocholithiasis, ascending cholangitis, shingles, PE, pneumothorax, intercostal neuritis, among others. Diagnostics, as interpreted by me: Normal sinus rhythm at 64 bpm. No ectopy or acute ischemic changes. Attending Attestation: Paul Gracia MD reviewed this patient's care and testing results with the PA. Labs and imaging without significant finding to explain this, however patient with uncontrolled pain. Further care and eval by the hospitalist team. Administered Medications Sodium Chloride (Nss) 1,000 mls @ 250 mls/hr IV .Q4H SCHUYLER Stop: 01/19/23 22:14 Last Admin: 12/20/22 23:08 Dose: 250 mls/hr Documented By: LILLIE Discontinued Medications Hydromorphone HCl (Hydromorphone Inj 0.5 Mg/0.5 Ml Syr) 0.5 mg IV NOW STA Stop: 12/20/22 22:03 Last Admin: 12/20/22 23:09 Dose: 0.5 mg Documented By: LILLIE Famotidine (Pepcid 20mg Iv Push) 20 mg in 5 mls @ 2.5 mls/min IV NOW STA Stop: 12/20/22 21:00 Last Admin: 12/20/22 21:27 Dose: 2.5 mls/min Documented By: MAURA Ioversol (Optiray 320 500ml) 111 ml IV ONCE ONE Stop: 12/20/22 18:32 Last Admin: 12/20/22 18:31 Dose: 111 ml Documented By: TANK Ketorolac Tromethamine (Ketorolac Tromethamine 15 Mg/Ml Vial) 15 mg IV NOW STA Stop: 12/20/22 21:00 Last Admin: 12/20/22 21:29 Dose: 15 mg Documented By: MAURA Morphine Sulfate (Morphine Sulfate 4 Mg/Ml 1 Ml Carp\\Vial) 4 mg IV NOW STA Stop: 12/20/22 20:13 Last Admin: 12/20/22 20:30 Dose: 4 mg Documented By: MAURA Morphine Sulfate (Morphine Sulfate 10 Mg/Ml Carp/Vial) 6 mg IV NOW STA Stop: 12/20/22 21:00 Last Admin: 12/20/22 21:30 Dose: 6 mg Documented By: MAURA Ondansetron HCl (Ondansetron Inj 2 Mg/Ml 2 Ml Vial) 4 mg IV NOW STA Stop: 12/20/22 20:13 Last Admin: 12/20/22 20:30 Dose: 4 mg Documented By: MAURA Ondansetron HCl (Ondansetron Inj 2 Mg/Ml 2 Ml Vial) 4 mg IV NOW STA Stop: 12/20/22 21:00 Last Admin: 12/20/22 21:27 Dose: 4 mg Documented By: MAURA Medical Decision Making Differential Diagnosis See ED course. Medical Records Attestation: I reviewed the patient's medical records. Home Medications was personally reviewed by me Laboratory Data Attestation: I reviewed the patient's lab results. 12/20/22 17:40 12/20/22 17:40 Lab Results 12/20/22 12/20/22 12/20/22 Range/Units 17:40 17:40 17:40 WBC 7.38 (4.8-10.8) K/ul RBC 4.42 (4.20-5.40) M/uL Hgb 13.1 (12.0-16.0) g/dl Hct 38.9 (37.0-47.0) % MCV 88.0 (80.0-100.0) fL MCH 29.6 (25.0-34.0) pg MCHC 33.7 (32.0-36.0) g/dL RDW Std Deviation 40.0 (36.4-46.3) fL RDW Coeff of Sally 12.4 (11.5-14.5) % Plt Count 298 (130-400) K/uL MPV 9.1 L (9.4-12.4) fL Immature Gran % (Auto) 0.1 % Neut % (Auto) 67.8 % Lymph % (Auto) 25.3 % [place] % (Auto) 5.6 % Eos % (Auto) 0.8 % Baso % (Auto) 0.4 % Neut # (Auto) 5.00 (1.40-6.50) K/uL Lymph # (Auto) 1.87 (1.20-3.40) K/uL [place] # (Auto) 0.41 (0.11-0.59) K/uL Eos # (Auto) 0.06 (0.00-0.50) K/uL Baso # (Auto) 0.03 (0.00-0.20) K/uL Immature Gran # (Auto) 0.01 (0.01-0.20) K/uL PT 9.8 (9.0-12.0) Seconds INR 0.9 (0.9-1.1) APTT 26.1 (21.0-31.0) Seconds PTT Ratio 0.9 D-Dimer 340 (0-500) ug/L FEU Sodium 139 (136-145) mmol/L Potassium 4.1 (3.5-5.1) mmol/L Chloride 105 (98-107) mmol/L Carbon Dioxide 28 (21-32) mmol/L Anion Gap 6 (3-11) BUN 10 (6-23) mg/dl Creatinine 0.83 (0.6-1.2) mg/dl Est Cr Clr Drug Dosing 112.3 ml/min Est GFR ( Amer) 101.5 ml/min Est GFR (Non-Af Amer) 87.6 ml/min BUN/Creatinine Ratio 12.0 (10-20) Glucose 93 (70-99(Fasting)) mg/dl Calcium 9.6 (8.6-10.3) mg/dl Total Bilirubin 0.4 (0.2-1.0) mg/dl AST 17 (13-39) U/L ALT 12 (7-52) U/L Alkaline Phosphatase 56 (34-104) U/L Troponin I High Sens < 2.3 (0-14) pg/ml Total Protein 7.7 (6.0-8.3) gm/dl Albumin 4.7 (3.4-5.0) gm/dl Globulin 3.0 (2.5-4.0) gm/dl Albumin/Globulin Ratio 1.6 (0.9-2) Lipase 13 (11-82) U/L Urine Color Urine Appearance (Clear) Urine pH (4.5-7.5) Ur Specific [employer] (1.000-1.030) Urine Protein (Negative) Urine Glucose (UA) (Negative) Urine Ketones (Negative) Urine Blood (Negative) Urine Nitrite (Negative) Urine Bilirubin (Negative) Urine Urobilinogen (Negative) Ur Leukocyte Esterase (Negative) 12/20/22 Range/Units 20:16 WBC (4.8-10.8) K/ul RBC (4.20-5.40) M/uL Hgb (12.0-16.0) g/dl Hct (37.0-47.0) % MCV (80.0-100.0) fL MCH (25.0-34.0) pg MCHC (32.0-36.0) g/dL RDW Std Deviation (36.4-46.3) fL RDW Coeff of Sally (11.5-14.5) % Plt Count (130-400) K/uL MPV (9.4-12.4) fL Immature Gran % (Auto) % Neut % (Auto) % Lymph % (Auto) % [place] % (Auto) % Eos % (Auto) % Baso % (Auto) % Neut # (Auto) (1.40-6.50) K/uL Lymph # (Auto) (1.20-3.40) K/uL [place] # (Auto) (0.11-0.59) K/uL Eos # (Auto) (0.00-0.50) K/uL Baso # (Auto) (0.00-0.20) K/uL Immature Gran # (Auto) (0.01-0.20) K/uL PT (9.0-12.0) Seconds INR (0.9-1.1) APTT (21.0-31.0) Seconds PTT Ratio D-Dimer (0-500) ug/L FEU Sodium (136-145) mmol/L Potassium (3.5-5.1) mmol/L Chloride (98-107) mmol/L Carbon Dioxide (21-32) mmol/L Anion Gap (3-11) BUN (6-23) mg/dl Creatinine (0.6-1.2) mg/dl Est Cr Clr Drug Dosing ml/min Est GFR ( Amer) ml/min Est GFR (Non-Af Amer) ml/min BUN/Creatinine Ratio (10-20) Glucose (70-99(Fasting)) mg/dl Calcium (8.6-10.3) mg/dl Total Bilirubin (0.2-1.0) mg/dl AST (13-39) U/L ALT (7-52) U/L Alkaline Phosphatase (34-104) U/L Troponin I High Sens (0-14) pg/ml Total Protein (6.0-8.3) gm/dl Albumin (3.4-5.0) gm/dl Globulin (2.5-4.0) gm/dl Albumin/Globulin Ratio (0.9-2) Lipase (11-82) U/L Urine Color Yellow Urine Appearance Clear (Clear) Urine pH 7.5 (4.5-7.5) Ur Specific [employer] 1.043 H (1.000-1.030) Urine Protein Negative (Negative) Urine Glucose (UA) Negative (Negative) Urine Ketones Negative (Negative) Urine Blood Negative (Negative) Urine Nitrite Negative (Negative) Urine Bilirubin Negative (Negative) Urine Urobilinogen Negative (Negative) Ur Leukocyte Esterase Negative (Negative) Imaging Data Attestation: I personally reviewed and interpreted this imaging study as follows: Radiologist's Impression: Abdomen/Pelvis CT 12/20/22 17:07 Exam(s): CT ABDOMEN + PELVIS With Contrast IV Amt: 111 ml optiray 320 EXAM: CT Abdomen and Pelvis With Intravenous Contrast CLINICAL HISTORY: Reason for exam: RUQ abd pain. TECHNIQUE: Axial computed tomography images of the abdomen and pelvis with intravenous contrast. CTDI is 70 mGy and DLP is 2423.33 mGy-cm. Automated exposure control was utilized for the study. A dose lowering technique was utilized adhering to the principles of ALARA. CONTRAST: Patient received 111 ml optiray 320 of IV contrast COMPARISON: June 25, 2020 FINDINGS: Lung bases: Unremarkable. No mass. No consolidation. ABDOMEN: Liver: Unremarkable. No mass. Gallbladder and bile ducts: The gallbladder has been removed. No biliary duct dilation or choledocholithiasis is seen. Pancreas: Unremarkable. No mass. No ductal dilation. Spleen: Unremarkable. No splenomegaly. Adrenals: Unremarkable. No mass. Kidneys and ureters: Unremarkable. No solid mass. No hydronephrosis. Stomach and bowel: Unremarkable. No obstruction. No mucosal thickening. PELVIS: Appendix: There are surgical clips in the right lower quadrant. The appendix is not visible and may have been removed. There is a trace amount of free fluid in the pelvis dependently. No acute inflammatory changes are seen involving the bowel. Bladder: Unremarkable. No mass. Reproductive: The uterus has been removed. ABDOMEN and PELVIS: Intraperitoneal space: See above. Bones/joints: No acute fracture. No dislocation. Soft tissues: Unremarkable. Vasculature: Unremarkable. No abdominal aortic aneurysm. Lymph nodes: Unremarkable. No enlarged lymph nodes. IMPRESSION: 1. The gallbladder has been removed. No biliary duct dilation or choledocholithiasis is seen. Trace right pleural effusion measuring a few millimeters. 2. There are surgical clips in the right lower quadrant. The appendix is not visible and may have been removed. There is a trace amount of free fluid in the pelvis dependently. No acute inflammatory changes are seen involving the bowel. Electronically signed by: Tito Gaytan MD 12/20/22 19:32 PM Chest CTA 12/20/22 17:09 Exam(s): CTA CHEST IV Amt: 111 ml optiray 320 EXAM: CT Angiography Chest With Intravenous Contrast CLINICAL HISTORY: Reason for exam: PE. TECHNIQUE: Axial computed tomographic angiography images of the chest with intravenous contrast. CTDI is 70 mGy and DLP is 2423.33 mGy-cm. Automated exposure control was utilized for the study. A dose lowering technique was utilized adhering to the principles of ALARA. MIP reconstructed images were created and reviewed. COMPARISON: No relevant prior studies available. FINDINGS: Pulmonary arteries: The pulmonary arterial tree is well opacified with contrast. No pulmonary emboli are identified. Aorta: The thoracic aorta is nondilated. There is no aneurysm or dissection. Lungs: Trace amount of dependent subsegmental atelectasis. The lungs are otherwise clear. No acute focal infiltration or consolidation is seen. Slight bronchial wall thickening suggest possible mild bronchitis. Pleural space: Trace bilateral pleural effusions measuring 2-3 mm. This is nonspecific. No pneumothorax. Heart: Unremarkable. No cardiomegaly. No significant pericardial effusion. No evidence of RV dysfunction. Bones/joints: Mild degenerative changes in the spine. No fracture or subluxation. Soft tissues: Unremarkable. Lymph nodes: Unremarkable. No enlarged lymph nodes. IMPRESSION: 1. Trace amount of dependent subsegmental atelectasis. The lungs are otherwise clear. No acute focal infiltration or consolidation is seen. Slight bronchial wall thickening suggest possible mild bronchitis. 2. The pulmonary arterial tree is well opacified with contrast. No pulmonary emboli are identified. 3. The thoracic aorta is nondilated. There is no aneurysm or dissection. Electronically signed by: Tito Gaytan MD 12/20/22 19:34 PM MDM Narrative See ED course. Impression Intractable right upper quadrant abdominal pain Discharge Plan Visit Data Chief Complaint: Flank Pain Stated Complaint: RT SIDE ABD TO BACK PAIN ED Provider: Tito Gracia ED Midlevel Provider: Jenni Monterroso Discharge Problem: Intractable right upper quadrant abdominal pain Patient Disposition: Admitted As Inpatient Forms Stand Alone Forms: [facility] Prescriptions Prescriptions: No Action melatonin 5 mg Tablet, Ir And Er, Biphasic 5 mg PO HS cetirizine [Zyrtec] 10 mg Tablet 10 mg PO QAM trazodone 50 mg Tablet 75 mg PO HS citalopram 10 mg tablet 20 mg PO QAM Referrals Referrals: Jaya Simpson DO [Primary Care Provider] -
[2022-12-20] MEDS ORDERED: MoRPHine SULFATE 4 MG/ML 1 ML CARP\\VIAL IV STA (20:12)
[2022-12-20] MEDS ORDERED: ONDANSETRON INJ 2 MG/ML 2 ML VIAL IV STA ×2 (20:12→20:59)
[2022-12-20 20:33] LABS: Appearance Urine Clear (Clear); Bilirubin Urine Negative (Negative); Blood Urine Negative (Negative); Color Urine Yellow; Glucose Urine UA Negative (Negative); Ketones Urine Negative (Negative); Leukocyte Esterase Urine Negative (Negative); Nitrite Urine Negative (Negative); Protein Urine Negative (Negative); Specific Gravity Urine 1.043 (1.000-1.030); Urobilinogen Urine Negative (Negative); pH Urine 7.5 (4.5-7.5)
[2022-12-20] MEDS ORDERED: KETOROLAC TROMETHAMINE 15 MG/ML VIAL IV STA (20:59)
[2022-12-20] MEDS ORDERED: FAMOTIDINE 20MG IV PUSH 20 MG/5 ML SYR IV STA (20:59)
[2022-12-20] MEDS ORDERED: MoRPHine SULFATE 10 MG/ML CARP/VIAL IV STA (20:59)
[2022-12-20] MEDS ORDERED: HYDROmorphone INJ 0.5 MG/0.5 ML SYR IV STA (22:02)
[2022-12-20] MEDS ORDERED: SODIUM CHLORIDE 0.9% 1,000 ML IV SCH (22:15)
--- NOTE | 2022-12-21 00:29 | History & Physical Report ---
Date of Service December 21, 2022 Assessment & Plan (1) Intractable right upper quadrant abdominal pain: Plan: 42-year-old female with past med significant for allergic rhinitis, varicose veins of lower extremity, adjustment disorder with depression, presents with s evere abdominal pain going on since last . Initially the pain was on and off in the right upper quadrant and epigastric region but now its severe and persistent. Right upper quadrant and epigastric abdominal pain Going on since last Progressively got worse Imaging studies okay. Labs ok. We will keep her n.p.o., IV fluids, IV antiemetics as needed IV pain meds as needed IV Protonix Consult GI in a.m. Follow repeat labs Depression continue home meds Allergic rhinitis On Zyrtec DVT prophylaxis SCDs for now Disposition observation medical floor Full code History of Present Illness Chief Complaint: Abdominal pain Primary Care Provider: Jaya Simpson DO 42-year-old female with past med significant for allergic rhinitis, varicose veins of lower extremity, adjustment disorder with depression, presents with severe abdominal pain going on since last . Initially the pain was on and off in the right upper quadrant and epigastric region. But today the pain was severe and persistent associated with nausea. Initially she was constipated but today she moved her bowels. Denies any blood in the stools. Micturating okay. No fevers. Sometimes the pain is shooting into her chest. When the pain is severe she has difficulty taking deep breaths. Has some headache. No blurred visions. No earache or runny nose or sore throat. No cough. Past medical history. As mentioned above. Past surgical history. Excision of flank subcutaneous tumor. Dental surgery. Drain for fluid collection surrounding uterus. Laparoscopic appendectomy. Reduction of breast. Total abdominal hysterectomy with removal of tubes. Social history. . No smoking. Alcohol once a month. No drug use. Family history. Mother has allergies. Allergies Allergy/AdvReac Type Severity Reaction Status Date / Time No Known Allergies Allergy Verified 12/20/22 20:06 Home Medications Medication Instructions Recorded Confirmed Type cetirizine 10 mg tablet (Zyrtec) 10 mg PO QAM 05/16/20 12/20/22 History trazodone 50 mg tablet 75 mg PO HS 05/16/20 12/20/22 History melatonin 5 mg tablet,immediate 5 mg PO HS 06/25/20 12/20/22 History and extended release citalopram 10 mg tablet 20 mg PO QAM 05/19/22 12/20/22 History Past Med/Surg History Medical History (Updated 12/20/22 @ 23:20 by Jenni Monterroso) Anxiety Asthma exercise induced. no recent problems. Depression Environmental and seasonal allergies History of anesthesia reaction syncope and dizziness s/p general anesthesia. "passes out after anesthesia when she first stands up" Obesity Sleep apnea Surgical History (Updated 05/20/22 @ 13:06 by Cyndi Umana RN) History of hysterectomy With rectocele and cystocele repair History of laparoscopy Hx laparoscopic cholecystectomy (05/19/22) Laparoscopic Cholecystectomy(Not Applicable) - Liberty Cruz DO S/P appendectomy S/P bilateral breast reduction S/P wisdom tooth extraction Family History Grandmother (Maternal) Diabetes Grandmother (Paternal) Colorectal cancer Grandfather (Maternal) Cleft palate Social History Smoking Status: Never smoker Tobacco Type: Cigarettes Second Hand Exposure: No; Do You Dip or Chew Tobacco: No; Hx Alcohol Use: No Hx Substance Use: No Preferred Language: Turkmen Communication Ability: Effective Visual Impairment: No Limitations 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 Required: No Beliefs That Will Affect Care: None marital status: marital status details: Narciso Hu (40) [phone] Current Living Situation: Spouse Current Living Situation Comment: lives with spouse, sons, dogs, cats-spouse changing litter current occupational status: employed 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 ENT- oropharynx clear Neck- supple, no JVD. Lungs- clear to auscultation no wheezing or crackles. Heart- regular rhythm; no murmur, no gallop. Abdomen- normal bowel sounds, soft, tenderness in RUQ and epigastric regions. Mild guarding. No rigidity or distension. Extremities- no pretibial edema, moves extremities. Neuro- alert, oriented x 3; PERRL, no facial palsy; no dysarthria; Skin- warm & dry Results & Data Results & Data Vital Signs (Past 12 Hours) Vital Signs Temp Pulse Pulse Resp BP BP Pulse Ox 12/20/22 23:00 76 22 146/77 H 98 12/20/22 21:00 56 L 18 139/85 96 12/20/22 19:02 99 12/20/22 19:02 56 L 20 122/69 99 12/20/22 17:03 36.4 C L 74 18 128/87 99 O2 Del Method 12/20/22 23:00 12/20/22 21:00 Room Air 12/20/22 19:02 Room Air 12/20/22 19:02 Room Air 12/20/22 17:03 Room Air Diagnostic Findings Laboratory Results WBC 7.38 K/ul (4.8-10.8) 12/20/22 17:40 RBC 4.42 M/uL (4.20-5.40) 12/20/22 17:40 Hgb 13.1 g/dl (12.0-16.0) 12/20/22 17:40 Hct 38.9 % (37.0-47.0) 12/20/22 17:40 MCV 88.0 fL (80.0-100.0) 12/20/22 17:40 MCH 29.6 pg (25.0-34.0) 12/20/22 17:40 MCHC 33.7 g/dL (32.0-36.0) 12/20/22 17:40 RDW Std Deviation 40.0 fL (36.4-46.3) 12/20/22 17:40 RDW Coeff of Sally 12.4 % (11.5-14.5) 12/20/22 17:40 Plt Count 298 K/uL (130-400) 12/20/22 17:40 MPV 9.1 fL (9.4-12.4) L 12/20/22 17:40 Immature Gran % (Auto) 0.1 % 12/20/22 17:40 Neut % (Auto) 67.8 % 12/20/22 17:40 Lymph % (Auto) 25.3 % 12/20/22 17:40 Kendall % (Auto) 5.6 % 12/20/22 17:40 Eos % (Auto) 0.8 % 12/20/22 17:40 Baso % (Auto) 0.4 % 12/20/22 17:40 Neut # (Auto) 5.00 K/uL (1.40-6.50) 12/20/22 17:40 Lymph # (Auto) 1.87 K/uL (1.20-3.40) 12/20/22 17:40 Kendall # (Auto) 0.41 K/uL (0.11-0.59) 12/20/22 17:40 Eos # (Auto) 0.06 K/uL (0.00-0.50) 12/20/22 17:40 Baso # (Auto) 0.03 K/uL (0.00-0.20) 12/20/22 17:40 Immature Gran # (Auto) 0.01 K/uL (0.01-0.20) 12/20/22 17:40 PT 9.8 Seconds (9.0-12.0) 12/20/22 17:40 INR 0.9 (0.9-1.1) 12/20/22 17:40 APTT 26.1 Seconds (21.0-31.0) 12/20/22 17:40 PTT Ratio 0.9 12/20/22 17:40 D-Dimer 340 ug/L FEU (0-500) 12/20/22 17:40 Sodium 139 mmol/L (136-145) 12/20/22 17:40 Potassium 4.1 mmol/L (3.5-5.1) 12/20/22 17:40 Chloride 105 mmol/L (98-107) 12/20/22 17:40 Carbon Dioxide 28 mmol/L (21-32) 12/20/22 17:40 Anion Gap 6 (3-11) 12/20/22 17:40 BUN 10 mg/dl (6-23) 12/20/22 17:40 Creatinine 0.83 mg/dl (0.6-1.2) 12/20/22 17:40 Est Cr Clr Drug Dosing 112.3 ml/min 12/20/22 17:40 Est GFR ( Amer) 101.5 ml/min 12/20/22 17:40 Est GFR (Non-Af Amer) 87.6 ml/min 12/20/22 17:40 BUN/Creatinine Ratio 12.0 (10-20) 12/20/22 17:40 Glucose 93 mg/dl (70-99(Fasting)) 12/20/22 17:40 Calcium 9.6 mg/dl (8.6-10.3) 12/20/22 17:40 Total Bilirubin 0.4 mg/dl (0.2-1.0) 12/20/22 17:40 AST 17 U/L (13-39) 12/20/22 17:40 ALT 12 U/L (7-52) 12/20/22 17:40 Alkaline Phosphatase 56 U/L (34-104) 12/20/22 17:40 Troponin I High Sens < 2.3 pg/ml (0-14) 12/20/22 17:40 Total Protein 7.7 gm/dl (6.0-8.3) 12/20/22 17:40 Albumin 4.7 gm/dl (3.4-5.0) 12/20/22 17:40 Globulin 3.0 gm/dl (2.5-4.0) 12/20/22 17:40 Albumin/Globulin Ratio 1.6 (0.9-2) 12/20/22 17:40 Lipase 13 U/L (11-82) 12/20/22 17:40 Urine Color Yellow 12/20/22 20:16 Urine Appearance Clear (Clear) 12/20/22 20:16 Urine pH 7.5 (4.5-7.5) 12/20/22 20:16 Ur Specific Whiting 1.043 (1.000-1.030) H 12/20/22 20:16 Urine Protein Negative (Negative) 12/20/22 20:16 Urine Glucose (UA) Negative (Negative) 12/20/22 20:16 Urine Ketones Negative (Negative) 12/20/22 20:16 Urine Blood Negative (Negative) 12/20/22 20:16 Urine Nitrite Negative (Negative) 12/20/22 20:16 Urine Bilirubin Negative (Negative) 12/20/22 20:16 Urine Urobilinogen Negative (Negative) 10/30/23 20:16 Ur Leukocyte Esterase Negative (Negative) 12/20/22 20:16 Impressions Abdomen/Pelvis CT 12/20/22 17:07 Exam(s): CT ABDOMEN + PELVIS With Contrast IV Amt: 111 ml optiray 320 EXAM: CT Abdomen and Pelvis With Intravenous Contrast CLINICAL HISTORY: Reason for exam: RUQ abd pain. TECHNIQUE: Axial computed tomography images of the abdomen and pelvis with intravenous contrast. CTDI is 70 mGy and DLP is 2423.33 mGy-cm. Automated exposure control was utilized for the study. A dose lowering technique was utilized adhering to the principles of ALARA. CONTRAST: Patient received 111 ml optiray 320 of IV contrast COMPARISON: June 25, 2020 FINDINGS: Lung bases: Unremarkable. No mass. No consolidation. ABDOMEN: Liver: Unremarkable. No mass. Gallbladder and bile ducts: The gallbladder has been removed. No biliary duct dilation or choledocholithiasis is seen. Pancreas: Unremarkable. No mass. No ductal dilation. Spleen: Unremarkable. No splenomegaly. Adrenals: Unremarkable. No mass. Kidneys and ureters: Unremarkable. No solid mass. No hydronephrosis. Stomach and bowel: Unremarkable. No obstruction. No mucosal thickening. PELVIS: Appendix: There are surgical clips in the right lower quadrant. The appendix is not visible and may have been removed. There is a trace amount of free fluid in the pelvis dependently. No acute inflammatory changes are seen involving the bowel. Bladder: Unremarkable. No mass. Reproductive: The uterus has been removed. ABDOMEN and PELVIS: Intraperitoneal space: See above. Bones/joints: No acute fracture. No dislocation. Soft tissues: Unremarkable. Vasculature: Unremarkable. No abdominal aortic aneurysm. Lymph nodes: Unremarkable. No enlarged lymph nodes. IMPRESSION: 1. The gallbladder has been removed. No biliary duct dilation or choledocholithiasis is seen. Trace right pleural effusion measuring a few millimeters. 2. There are surgical clips in the right lower quadrant. The appendix is not visible and may have been removed. There is a trace amount of free fluid in the pelvis dependently. No acute inflammatory changes are seen involving the bowel. Electronically signed by: Tito Gaytan MD 12/20/22 19:32 PM Chest CTA 12/20/22 17:09 Exam(s): CTA CHEST IV Amt: 111 ml optiray 320 EXAM: CT Angiography Chest With Intravenous Contrast CLINICAL HISTORY: Reason for exam: PE. TECHNIQUE: Axial computed tomographic angiography images of the chest with intravenous contrast. CTDI is 70 mGy and DLP is 2423.33 mGy-cm. Automated exposure control was utilized for the study. A dose lowering technique was utilized adhering to the principles of ALARA. MIP reconstructed images were created and reviewed. COMPARISON: No relevant prior studies available. FINDINGS: Pulmonary arteries: The pulmonary arterial tree is well opacified with contrast. No pulmonary emboli are identified. Aorta: The thoracic aorta is nondilated. There is no aneurysm or dissection. Lungs: Trace amount of dependent subsegmental atelectasis. The lungs are otherwise clear. No acute focal infiltration or consolidation is seen. Slight bronchial wall thickening suggest possible mild bronchitis. Pleural space: Trace bilateral pleural effusions measuring 2-3 mm. This is nonspecific. No pneumothorax. Heart: Unremarkable. No cardiomegaly. No significant pericardial effusion. No evidence of RV dysfunction. Bones/joints: Mild degenerative changes in the spine. No fracture or subluxation. Soft tissues: Unremarkable. Lymph nodes: Unremarkable. No enlarged lymph nodes. IMPRESSION: 1. Trace amount of dependent subsegmental atelectasis. The lungs are otherwise clear. No acute focal infiltration or consolidation is seen. Slight bronchial wall thickening suggest possible mild bronchitis. 2. The pulmonary arterial tree is well opacified with contrast. No pulmonary emboli are identified. 3. The thoracic aorta is nondilated. There is no aneurysm or dissection. Electronically signed by: Tito Gaytan MD 12/20/22 19:34 PM ECG Additional Comments: ECG. Normal sinus rhythm rate of 64. No significant change was found. Code Status & VTE Plan VTE Prophylaxis Plan VTE Prophylaxis will be ordered: Yes
[2022-12-21] MEDS: D5W AND 1/2NSS 1,000 ML IV SCH ×3 (02:35→18:34)
[2022-12-21] MEDS: HYDROmorphone INJ 0.5 MG/0.5 ML SYR IV PRN ×3 (04:35→16:28)
--- NOTE | 2022-12-21 07:58 | Electrocardiogram Report ---
Test Reason : Blood Pressure : / mmHG Vent. Rate : 064 BPM Atrial Rate : 064 BPM P-R Int : 114 ms QRS Dur : 090 ms QT Int : 414 ms P-R-T Axes : 054 079 066 degrees QTc Int : 427 ms Normal sinus rhythm When compared with ECG of 25-APR-2014 23:17, No significant change was found Confirmed by Gary Chan ([id number]) on 12/21/2022 7:58:10 AM Referred By: REFERRED SELF Confirmed By:Justin Chan
[2022-12-21 08:26] LABS: Basophils # (auto) 0.02 K/uL (0.00-0.20); Basophils % (auto) 0.3 %; Eosinophils # (auto) 0.12 K/uL (0.00-0.50); Eosinophils % (auto) 1.9 %; Hematocrit (blood only) 37.7 % (37.0-47.0); Hemoglobin 12.9 g/dl (12.0-16.0); Immature Granulocytes # (auto) 0.02 K/uL (0.01-0.20); Immature Granulocytes % (auto) 0.3 %; Lymphocytes # (auto) 1.57 K/uL (1.20-3.40); Mean Corpuscular Hemoglobin 29.8 pg (25.0-34.0); Mean Corpuscular Hgb Conc 34.2 g/dL (32.0-36.0); Mean Corpuscular Volume 87.1 fL (80.0-100.0); Mean Platelet Volume 8.9 fL (9.4-12.4); Monocytes # (auto) 0.44 K/uL (0.11-0.59); Neutrophils # (auto) 4.12 K/uL (1.40-6.50); Neutrophils % (auto) 65.5 %; Platelet Count 259 K/uL (130-400); RDW Coefficient of Variation 12.5 % (11.5-14.5); RDW Standard Deviation 39.9 fL (36.4-46.3); Red Blood Count 4.33 M/uL (4.20-5.40); White Blood Count 6.29 K/ul (4.8-10.8)
[2022-12-21 08:48] LABS: BUN Creatinine Ratio 11.1 (10-20); Calcium 8.5 mg/dl (8.6-10.3); Creatinine Clr Calc Pharmacy 115.1 ml/min; Est GFR (African American) 104.6 ml/min; Est GFR (Non-African American) 90.2 ml/min; Potassium 3.4 mmol/L (3.5-5.1)
[2022-12-21] MEDS: ACETAMINOPHEN 325 MG TAB PO PRN (09:19)
[2022-12-21] MEDS: ONDANSETRON INJ 2 MG/ML 2 ML VIAL IV PRN (09:20)
--- NOTE | 2022-12-21 10:32 | Gastrointestinal Consultation ---
Date of Consultation December 21, 2022 Assessment & Plan (1) Intractable right upper quadrant abdominal pain: Unclear etiology. Bile ducts are clear on imaging. She is post choley. There is no liver enzyme or lipase elevation. Plan Will r/o bile duct stones and other abnormalities w MRCP - though likely low yield - necessary because pt c/o severe continued pain and reports it is similar to prior to her cholecystectomy. If normal MRCP then: - Will plan for OP EUS. - Would consider Musculoskeletal causes of pain and consider pain management consult. - Would treat constipation w Linzess which also helps chronic pain from IBS. Supervising Physician Co-Signing Physician Notes I personally saw and evaluated the patient with ROZ Oneil on 12/21/2022 and agree with her findings and plan of care. On exam abdomen is tender to palpation in the RUQ. 42 y/o F with history of cholecystectomy, anxiety, and depression admitted with RUQ abdominal pain. Reports this feels similar to when she had her cholecystitis in the past and had her gallbladder removed. Interestingly, she reports the pain is worse with moving, bending, and twisting which is suspicious for a musculoskeletal etiology. She denies any trauma to the area. her labs including LFTs and lipase and her CT of the abdomen are all unremarkable. I suspect her pain is something musculoskeletal. Will obtain MRCP just to rule out any biliary pathology but CT abdomen was normal without any biliary dilation. If negative will arrange outpatient EUS. Needs bowel regimen as until yesterday had not had a bowel movement in 1 week. Elizabeth Polk, Gastroenterology and Hepatology History of Present Illness Reason for Consultation: persistent abdominal pain Requesting Physician: Dr. Perez Attending Physician: Adán Solano MD History of Present Illness Ms. Aashish Hu is a 42 yr old female pt of Dr. Jaya Simpson w hx of anxiety/depression, who is post cholecystectomy this past spring (for similar pain). She has had GI issues for a year or so, mostly constipation, bloating, intermittent loose BMs. She was doing relatively well after the cholecystectomy until last week when she developed RUQ pain, bloating and worsening of constipation, not having passed a BM for about a week, nausea but no vomiting. The pain worsens with turning twisting leaning forward. The pain is a very specific area in the right upper quadrant worsened with pressing in that area, "just below the ribs on the right side." Regarding her constipation, she did pass 3 loose BMs but today hasn't passed a BM. On arrival, CTAP with IV contrast and CTA of the chest are normal. LFTs and lipase are normal. No leukocytosis and is afebrile. She continues in considerable pain but has some relief w Dilaudid. Allergies Allergy/AdvReac Type Severity Reaction Status Date / Time No Known Allergies Allergy Verified 12/20/22 20:06 Home Medications Medication Instructions Recorded Confirmed Type cetirizine 10 mg tablet (Zyrtec) 10 mg PO QAM 05/16/20 12/20/22 History trazodone 50 mg tablet 75 mg PO HS 05/16/20 12/20/22 History melatonin 5 mg tablet,immediate 5 mg PO HS 06/25/20 12/20/22 History and extended release citalopram 10 mg tablet 20 mg PO QAM 05/19/22 12/20/22 History Patient History Medical History (Updated 12/20/22 @ 23:20 by Jenni Monterroso) Anxiety Asthma exercise induced. no recent problems. Depression Environmental and seasonal allergies History of anesthesia reaction syncope and dizziness s/p general anesthesia. "passes out after anesthesia wh en she first stands up" Obesity Sleep apnea Surgical History (Updated 05/20/22 @ 13:06 by Cyndi Umana RN) History of hysterectomy With rectocele and cystocele repair History of laparoscopy Hx laparoscopic cholecystectomy (05/19/22) Laparoscopic Cholecystectomy(Not Applicable) - Liberty Cruz DO S/P appendectomy S/P bilateral breast reduction S/P wisdom tooth extraction Family History Grandmother (Maternal) Diabetes Grandmother (Paternal) Colorectal cancer Grandfather (Maternal) Cleft palate Social History Smoking Status: Never smoker Tobacco Type: Cigarettes Second Hand Exposure: No; Do You Dip or Chew Tobacco: No; Hx Alcohol Use: No Hx Substance Use: No Preferred Language: Upper Sorbian Communication Ability: Effective Visual Impairment: No Limitations Repair Specialist Required: No Beliefs That Will Affect Care: None marital status: marital status details: Narciso Hu (40) [phone] Current Living Situation: Spouse Current Living Situation Comment: lives with spouse, sons, dogs, cats-spouse changing litter 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 occupational status: 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 Other Information 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 Helps Us Care for You: No Feels Safe at Home: Yes Safety Concerns: Feels Safe At This Time Diet: regular Assistive Devices: None Review of Systems Review of Systems: ROS: Gen: Denies weakness, fevers, weight loss Eyes: No eye redness, or pain, no recent vision changes Resp: No SOB, no cough Cardio: No palpitations/irregular beats, no chest pain GI: As per HPI, otherwise (-) : Denies pain on urination Skin: No jaundice, itching or new rashes Physical Exam Constitutional: WD/WN, vitals as above Eyes: PERRL, conjunctivae normal, anicteric sclerae ENMT: external ear and nose normal, oropharynx normal Neck: trachea midline, no thyromegaly Respiratory: normal respiratory effort, lungs clear to auscultation Cardiovascular: RRR, no murmur, no edema Gastrointestinal (Abdomen): Moderate RUQ tenderness, non tender elsewhere, no masses. Abd is soft, non distended. Skin: no rashes, warm and dry Neurologic: PERRL, EOMI, accommodation nl, no face palsy, no dysarthria Psychiatric: A+Ox3, euthymic affect Genitourinary: no vaginal lesions, no adnexal mass Lymphatic: no cervical or axillary lymphadenopathy Results & Data Vital Signs (Past 12 Hours) Vital Signs Pulse Pulse Resp BP Pulse Ox O2 Del Method FiO2 12/21/22 03:15 81 23 97 21 12/21/22 00:43 62 16 115/72 99 Room Air 12/20/22 23:00 76 22 146/77 H 98 Laboratory Results WBC 7.3, Hb 13.1, HCT 38.9, PLTs 298, PT 9.8, INR 0.9, Na 139, K4.1, Cl 105, CO2 28, BUN 10, creatinine 0.8, glucose 93 LFTs and lipase are normal. Diagnostic Findings CTAP w IV contrast 12/20/22: 1. The gallbladder has been removed. No biliary duct dilation or choledocholithiasis is seen. Trace right pleural effusion measuring a few millimeters. 2. There are surgical clips in the right lower quadrant. The appendix is not visible and may have been removed. There is a trace amount of free fluid in the pelvis dependently. No acute inflammatory changes are seen involving the bowel. CTA chest 12/20/22: 1. Trace amount of dependent subsegmental atelectasis. The lungs are otherwise clear. No acute focal infiltration or consolidation is seen. Slight bronchial wall thickening suggest possible mild bronchitis. 2. The pulmonary arterial tree is well opacified with contrast. No pulmonary emboli are identified. 3. The thoracic aorta is nondilated. There is no aneurysm or dissection.
[2022-12-21] MEDS ORDERED: bisacodyL 10 MG SUPP PR STA (12:49)
[2022-12-21] MEDS: CETIRIZINE HCL 10 MG TABLET PO SCH (15:53)
[2022-12-21] MEDS: CITALOPRAM 20 MG TAB PO SCH (15:53)
[2022-12-21] MEDS: POLYETHYLENE (MIRALAX) 17 GM PACK PO SCH (15:54)
[2022-12-21] MEDS: PANTOprazole 40 MG in SYRINGE 0 ML IV SCH ×2 (15:56→20:56)
--- NOTE | 2022-12-21 20:07 | Magnetic Resonance Report ---
Exam(s): MRI MRCP EXAM: MR Abdomen Without Intravenous Contrast, MRCP Protocol CLINICAL HISTORY: Reason for exam: RUQ pain, biliary colic type, r/o choledocholithiasis. TECHNIQUE: Multiplanar magnetic resonance images of the abdomen without intravenous contrast using MRCP protocol. COMPARISON: CT abdomen/pelvis on 12/20/2022 FINDINGS: Lower thorax: Trace bilateral pleural effusions. Bile ducts: Unremarkable. No significant biliary dilatation or choledocholithiasis. Gallbladder: Status post cholecystectomy. Liver: Unremarkable. Pancreas: Unremarkable. No ductal dilation. Spleen: Unremarkable. No splenomegaly. Adrenals: Unremarkable. No mass. Kidneys and ureters: Unremarkable. No hydronephrosis. Stomach and bowel: Evaluation of the stomach is limited by underdistention. IMPRESSION: 1. Status post cholecystectomy. No significant biliary dilatation or choledocholithiasis. 2. Trace bilateral pleural effusions. Electronically signed by: Jyoti Sharma M.D. 12/21/22 20:06 PM
[2022-12-21] MEDS: MELATONIN 3 MG TAB PO SCH (20:56)
[2022-12-21] MEDS: traZODone HCL 50 MG TAB PO SCH (20:57)
[2022-12-22] MEDS: D5W AND 1/2NSS 1,000 ML IV SCH ×3 (01:10→18:12)
[2022-12-22] MEDS: ACETAMINOPHEN 325 MG TAB PO PRN ×2 (04:22→11:01)
[2022-12-22] MEDS: ONDANSETRON INJ 2 MG/ML 2 ML VIAL IV PRN ×2 (04:22→11:01)
[2022-12-22 08:08] LABS: Hematocrit (blood only) 37.3 % (37.0-47.0); Hemoglobin 12.5 g/dl (12.0-16.0); Mean Corpuscular Hemoglobin 29.8 pg (25.0-34.0); Mean Corpuscular Hgb Conc 33.5 g/dL (32.0-36.0); Mean Platelet Volume 8.9 fL (9.4-12.4); Platelet Count 236 K/uL (130-400); RDW Coefficient of Variation 12.4 % (11.5-14.5); RDW Standard Deviation 40.3 fL (36.4-46.3); Red Blood Count 4.19 M/uL (4.20-5.40); White Blood Count 5.94 K/ul (4.8-10.8)
[2022-12-22] MEDS: POLYETHYLENE (MIRALAX) 17 GM PACK PO SCH ×2 (08:20→21:30)
[2022-12-22] MEDS: PANTOprazole 40 MG in SYRINGE 0 ML IV SCH ×2 (08:20→21:29)
[2022-12-22] MEDS: CETIRIZINE HCL 10 MG TABLET PO SCH (08:20)
[2022-12-22] MEDS: CITALOPRAM 20 MG TAB PO SCH (08:20)
[2022-12-22 08:28] LABS: Albumin Globulin Ratio 1.6 (0.9-2); Albumin Level 4.1 gm/dl (3.4-5.0); BUN Creatinine Ratio 9.9 (10-20); Bilirubin,Total 0.6 mg/dl (0.2-1.0); Calcium 8.7 mg/dl (8.6-10.3); Creatinine Clr Calc Pharmacy 115.1 ml/min; Est GFR (African American) 104.6 ml/min; Est GFR (Non-African American) 90.2 ml/min; Globulin 2.5 gm/dl (2.5-4.0); Magnesium 2.1 mg/dl (1.7-2.4); Phosphorus 4.1 mg/dl (2.5-4.9); Total Protein 6.6 gm/dl (6.0-8.3)
[2022-12-22] MEDS: HYDROmorphone INJ 0.5 MG/0.5 ML SYR IV PRN (08:28)
[2022-12-22] MEDS: DOCUSATE SODIUM/SENNA 50/8.6MG TAB PO SCH ×2 (15:57→21:30)
[2022-12-22] MEDS ORDERED: HYDROmorphone INJ 0.5 MG/0.5 ML SYR IV PRN (18:00)
--- NOTE | 2022-12-22 18:02 | Hospitalist Progress Note ---
Date of Service December 22, 2022 Assessment & Plan (1) Intractable right upper quadrant abdominal pain: Plan: 42-year-old female with past med significant for allergic rhinitis, varicose veins of lower extremity, adjustment disorder with depression, presents with s evere abdominal pain going on since last . Initially the pain was on and off in the right upper quadrant and epigastric region but now its severe and persistent. Right upper quadrant and epigastric abdominal pain DD: Constipation, musculoskeletal --CT ABD:The gallbladder has been removed. No biliary duct dilation or choledocholithiasis is seen. Trace right pleural effusion measuring a few millimeters. There are surgical clips in the right lower quadrant. The appendix is not visible and may have been removed. There is a trace amount of free fluid in the pelvis dependently. No acute inflammatory changes are seen involving the bowel. --MRCP:Status post cholecystectomy. No significant biliary dilatation or choledocholithiasis. Trace bilateral pleural effusions. --Chest CTA:Trace amount of dependent subsegmental atelectasis. The lungs are otherwise clear. No acute focal infiltration or consolidation is seen.Slight bronchial wall thickening suggest possible mild bronchitis. The pulmonary arterial tree is well opacified with contrast. No pulmonary emboli are identified. The thoracic aorta is nondilated. There is no aneurysm or dissection. -- Continue IV Protonix for now Monitor LFTs Appreciate GI input Advance diet as tolerated Minimize IV meds as able Bowel regimen started Depression continue home meds Allergic rhinitis On Zyrtec DVT Px: SCDs for now Code Status Full code Admission and Anticipated Discharge Date Admission Date: December 21, 2022 Subjective Patient is seen and examined at bedside States having nausea associated with abdominal pain Had small bowel movement yesterday per patient Denies any chest pain, dyspnea No other complaints Tolerating clear liquid diet Review of Systems Review of Systems: All systems reviewed & are unremarkable except as noted in Subjective Physical Exam Physical Exam: Physical Exam: Vitals signs as noted above General Appearance:Obese, no apparent distress Head: normocephalic, Atraumatic Eyes: normal inspection, EOMI Neck: supple, Trachea midline Respiratory/Chest: Normal breath sounds, CTA, No accessory muscle use Cardiovascular: S1, S2, No murmur Abdomen/GI:Soft, Epigastric mild tender, no guarding or rigidity, decreased bowel sounds Extremities/Musculoskeletal:normal inspection, no edema Neurologic/Psych:AAOX3, grossly no focal neurological deficits Skin: normal color, warm Results & Data Results & Data Vital Signs (Past 12 Hours) Vital Signs Temp Pulse Pulse Resp BP BP Pulse Ox 12/22/22 15:13 36.7 C 61 16 115/76 97 12/22/22 07:53 36.6 C 64 18 101/67 95 12/22/22 07:33 66 19 97 O2 Del Method FiO2 12/22/22 15:13 Room Air 12/22/22 07:53 Room Air 12/22/22 07:33 21 Laboratory Results Short CBC 12/22/22 Range/Units 07:37 WBC 5.94 (4.8-10.8) K/ul Hgb 12.5 (12.0-16.0) g/dl Hct 37.3 (37.0-47.0) % Plt Count 236 (130-400) K/uL BMP 12/22/22 07:37 Sodium 140 Potassium 4.0 Chloride 107 Carbon Dioxide 29 BUN 8 Creatinine 0.81 Glucose 109 H Calcium 8.7 Liver Function 12/22/22 Range/Units 07:37 Total Bilirubin 0.6 (0.2-1.0) mg/dl AST 37 (13-39) U/L ALT 82 H (7-52) U/L Alkaline Phosphatase 66 (34-104) U/L Albumin 4.1 (3.4-5.0) gm/dl
[2022-12-22] MEDS: traZODone HCL 50 MG TAB PO SCH (21:40)
[2022-12-22] MEDS: MELATONIN 3 MG TAB PO SCH (21:40)
[2022-12-23] MEDS: D5W AND 1/2NSS 1,000 ML IV SCH ×2 (02:12→14:28)
[2022-12-23 07:51] LABS: Albumin Globulin Ratio 1.6 (0.9-2); BUN Creatinine Ratio 11.4 (10-20); Bilirubin,Total 0.4 mg/dl (0.2-1.0); Calcium 8.8 mg/dl (8.6-10.3); Est GFR (African American) 107.8 ml/min; Globulin 2.5 gm/dl (2.5-4.0); Potassium 3.8 mmol/L (3.5-5.1); Total Protein 6.5 gm/dl (6.0-8.3)
[2022-12-23] MEDS: CETIRIZINE HCL 10 MG TABLET PO SCH (09:53)
[2022-12-23] MEDS: CITALOPRAM 20 MG TAB PO SCH (09:53)
[2022-12-23] MEDS: DOCUSATE SODIUM/SENNA 50/8.6MG TAB PO SCH (09:53)
[2022-12-23] MEDS: POLYETHYLENE (MIRALAX) 17 GM PACK PO SCH (09:53)
[2022-12-23] MEDS: PANTOprazole 40 MG in SYRINGE 0 ML IV SCH (09:54)
--- NOTE | 2022-12-23 14:11 | Hospitalist Progress Note ---
Date of Service December 23, 2022 Assessment & Plan (1) Intractable right upper quadrant abdominal pain: Plan: 42-year-old female with past med significant for allergic rhinitis, varicose veins of lower extremity, adjustment disorder with depression, presents with severe abdominal pain going on since last . Initially the pain was on and off in the right upper quadrant and epigastric region but now its severe and persistent. Right upper quadrant and epigastric abdominal pain DD: Constipation, musculoskeletal --CT ABD:The gallbladder has been removed. No biliary duct dilation or choledocholithiasis is seen. Trace right pleural effusion measuring a few millimeters. There are surgical clips in the right lower quadrant. The appendix is not visible and may have been removed. There is a trace amount of free fluid in the pelvis dependently. No acute inflammatory changes are seen involving the bowel. --MRCP:Status post cholecystectomy. No significant biliary dilatation or choledocholithiasis. Trace bilateral pleural effusions. --Chest CTA:Trace amount of dependent subsegmental atelectasis. The lungs are otherwise clear. No acute focal infiltration or consolidation is seen.Slight bronchial wall thickening suggest possible mild bronchitis. The pulmonary arterial tree is well opacified with contrast. No pulmonary emboli are identified. The thoracic aorta is nondilated. There is no aneurysm or dissection. -- Continue Protonix Monitor LFTs Appreciate GI input Minimize IV meds as able Continue Bowel regimen Tolerated low fiber diet Abdominal pain resolved Plan to be discharged home today Depression continue home meds Allergic rhinitis On Zyrtec DVT Px: SCDs for now Code Status Full code Admission and Anticipated Discharge Date Admission Date: December 21, 2022 Subjective Patient is seen and examined at bedside States feeling well today Abdominal pain, nausea resolved No new complaints Tolerating low fiber diet Plan to be discharged home today Review of Systems Review of Systems: All systems reviewed & are unremarkable except as noted in Subjective Physical Exam Physical Exam: Physical Exam: Vitals signs as noted above General Appearance:Obese, no apparent distress Head: normocephalic, Atraumatic Eyes: normal inspection, EOMI Neck: supple, Trachea midline Respiratory/Chest: Normal breath sounds, CTA, No accessory muscle use Cardiovascular: S1, S2, No murmur Abdomen/GI:Soft, Epigastric mild tender, no guarding or rigidity, decreased bowel sounds Extremities/Musculoskeletal:normal inspection, no edema Neurologic/Psych:AAOX3, grossly no focal neurological deficits Skin: normal color, warm Results & Data Results & Data Vital Signs (Past 12 Hours) Vital Signs Temp Pulse Resp BP Pulse Ox O2 Del Method 12/23/22 12:16 36.9 C 12/23/22 11:13 37 C 66 14 119/77 96 Room Air 12/23/22 08:10 36.9 C 12/23/22 08:08 39.9 C H 60 12 113/72 94 Room Air 12/23/22 08:03 39.9 C H 60 12 113/75 94 Room Air Laboratory Results [facility] 12/23/22 07:13 Sodium 141 Potassium 3.8 Chloride 108 H Carbon Dioxide 27 BUN 9 Creatinine 0.79 Glucose 95 Calcium 8.8 Liver Function 12/23/22 Range/Units 07:13 Total Bilirubin 0.4 (0.2-1.0) mg/dl AST 19 (13-39) U/L ALT 53 H (7-52) U/L Alkaline Phosphatase 57 (34-104) U/L Albumin 4.0 (3.4-5.0) gm/dl
--- NOTE | 2022-12-23 14:16 | Discharge Summary ---
Date of Service December 23, 2022 Admission HPI Per Admitting Provider 42-year-old female with past med significant for allergic rhinitis, varicose veins of lower extremity, adjustment disorder with depression, presents with severe abdominal pain going on since last . Initially the pain was on and off in the right upper quadrant and epigastric region. But today the pain was severe and persistent associated with nausea. Initially she was constipated but today she moved her bowels. Denies any blood in the stools. Micturating okay. No fevers. Sometimes the pain is shooting into her chest. When the pain is severe she has difficulty taking deep breaths. Has some headache. No blurred visions. No earache or runny nose or sore throat. No cough. Past medical history. As mentioned above. Past surgical history. Excision of flank subcutaneous tumor. Dental surgery. Drain for fluid collection surrounding uterus. Laparoscopic appendectomy. Reduction of breast. Total abdominal hysterectomy with removal of tubes. Social history. . No smoking. Alcohol once a month. No drug use. Family history. Mother has allergies. Admission Exam Per Admitting Provider General- Not in distress Head- atraumatic Eyes- PERRL. ENT- oropharynx clear Neck- supple, no JVD. Lungs- clear to auscultation no wheezing or crackles. Heart- regular rhythm; no murmur, no gallop. Abdomen- normal bowel sounds, soft, tenderness in RUQ and epigastric regions. Mild guarding. No rigidity or distension. Extremities- no pretibial edema, moves extremities. Neuro- alert, oriented x 3; PERRL, no facial palsy; no dysarthria; Skin- warm & dry Principal Diagnosis Abdominal pain Constipation Discharge Data Allergies Allergy/AdvReac Type Severity Reaction Status Date / Time No Known Allergies Allergy Verified 12/20/22 20:06 Consultations 12/20/22 22:24 ED Decision to Admit Stat 12/21/22 08:00 Consult Gastroenterology Routine Procedures Performed Laboratory Results WBC 5.94 K/ul (4.8-10.8) 12/22/22 07:37 RBC 4.19 M/uL (4.20-5.40) L 12/22/22 07:37 Hgb 12.5 g/dl (12.0-16.0) 12/22/22 07:37 Hct 37.3 % (37.0-47.0) 12/22/22 07:37 MCV 89.0 fL (80.0-100.0) 12/22/22 07:37 MCH 29.8 pg (25.0-34.0) 12/22/22 07:37 MCHC 33.5 g/dL (32.0-36.0) 12/22/22 07:37 RDW Std Deviation 40.3 fL (36.4-46.3) 12/22/22 07:37 RDW Coeff of Sally 12.4 % (11.5-14.5) 12/22/22 07:37 Plt Count 236 K/uL (130-400) 12/22/22 07:37 MPV 8.9 fL (9.4-12.4) L 12/22/22 07:37 Immature Gran % (Auto) 0.3 % 12/21/22 08:03 Neut % (Auto) 65.5 % 12/21/22 08:03 Lymph % (Auto) 25.0 % 12/21/22 08:03 [place] % (Auto) 7.0 % 12/21/22 08:03 Eos % (Auto) 1.9 % 12/21/22 08:03 Baso % (Auto) 0.3 % 12/21/22 08:03 Neut # (Auto) 4.12 K/uL (1.40-6.50) 12/21/22 08:03 Lymph # (Auto) 1.57 K/uL (1.20-3.40) 12/21/22 08:03 [place] # (Auto) 0.44 K/uL (0.11-0.59) 12/21/22 08:03 Eos # (Auto) 0.12 K/uL (0.00-0.50) 12/21/22 08:03 Baso # (Auto) 0.02 K/uL (0.00-0.20) 12/21/22 08:03 Immature Gran # (Auto) 0.02 K/uL (0.01-0.20) 12/21/22 08:03 PT 9.8 Seconds (9.0-12.0) 12/20/22 17:40 INR 0.9 (0.9-1.1) 12/20/22 17:40 APTT 26.1 Seconds (21.0-31.0) 12/20/22 17:40 PTT Ratio 0.9 12/20/22 17:40 D-Dimer 340 ug/L FEU (0-500) 12/20/22 17:40 Sodium 141 mmol/L (136-145) 12/23/22 07:13 Potassium 3.8 mmol/L (3.5-5.1) 12/23/22 07:13 Chloride 108 mmol/L (98-107) H 12/23/22 07:13 Carbon Dioxide 27 mmol/L (21-32) 12/23/22 07:13 Anion Gap 6 (3-11) 12/23/22 07:13 BUN 9 mg/dl (6-23) 12/23/22 07:13 Creatinine 0.79 mg/dl (0.6-1.2) 12/23/22 07:13 Est Cr Clr Drug Dosing 118.0 ml/min 12/23/22 07:13 Est GFR ( Amer) 107.8 ml/min 12/23/22 07:13 Est GFR (Non-Af Amer) 93.0 ml/min 12/23/22 07:13 BUN/Creatinine Ratio 11.4 (10-20) 12/23/22 07:13 Glucose 95 mg/dl (70-99(Fasting)) 12/23/22 07:13 Calcium 8.8 mg/dl (8.6-10.3) 12/23/22 07:13 Phosphorus 4.1 mg/dl (2.5-4.9) 12/22/22 07:37 Magnesium 2.0 mg/dl (1.7-2.4) 12/23/22 07:13 Total Bilirubin 0.4 mg/dl (0.2-1.0) 12/23/22 07:13 AST 19 U/L (13-39) 12/23/22 07:13 ALT 53 U/L (7-52) H 12/23/22 07:13 Alkaline Phosphatase 57 U/L (34-104) 12/23/22 07:13 Troponin I High Sens < 2.3 pg/ml (0-14) 12/20/22 17:40 Total Protein 6.5 gm/dl (6.0-8.3) 12/23/22 07:13 Albumin 4.0 gm/dl (3.4-5.0) 12/23/22 07:13 Globulin 2.5 gm/dl (2.5-4.0) 12/23/22 07:13 Albumin/Globulin Ratio 1.6 (0.9-2) 12/23/22 07:13 Lipase 13 U/L (11-82) 12/20/22 17:40 Urine Color Yellow 12/20/22 20:16 Urine Appearance Clear (Clear) 12/20/22 20:16 Urine pH 7.5 (4.5-7.5) 12/20/22 20:16 Ur Specific [place] 1.043 (1.000-1.030) H 12/20/22 20:16 Urine Protein Negative (Negative) 12/20/22 20:16 Urine Glucose (UA) Negative (Negative) 12/20/22 20:16 Urine Ketones Negative (Negative) 12/20/22 20:16 Urine Blood Negative (Negative) 12/20/22 20:16 Urine Nitrite Negative (Negative) 12/20/22 20:16 Urine Bilirubin Negative (Negative) 12/20/22 20:16 Urine Urobilinogen Negative (Negative) 12/20/22 20:16 Ur Leukocyte Esterase Negative (Negative) 12/20/22 20:16 Impressions Abdomen/Pelvis CT 12/20/22 17:07 Exam(s): CT ABDOMEN + PELVIS With Contrast IV Amt: 111 ml optiray 320 EXAM: CT Abdomen and Pelvis With Intravenous Contrast CLINICAL HISTORY: Reason for exam: RUQ abd pain. TECHNIQUE: Axial computed tomography images of the abdomen and pelvis with intravenous contrast. CTDI is 70 mGy and DLP is 2423.33 mGy-cm. Automated exposure control was utilized for the study. A dose lowering technique was utilized adhering to the principles of ALARA. CONTRAST: Patient received 111 ml optiray 320 of IV contrast COMPARISON: June 25, 2020 FINDINGS: Lung bases: Unremarkable. No mass. No consolidation. ABDOMEN: Liver: Unremarkable. No mass. Gallbladder and bile ducts: The gallbladder has been removed. No biliary duct dilation or choledocholithiasis is seen. Pancreas: Unremarkable. No mass. No ductal dilation. Spleen: Unremarkable. No splenomegaly. Adrenals: Unremarkable. No mass. Kidneys and ureters: Unremarkable. No solid mass. No hydronephrosis. Stomach and bowel: Unremarkable. No obstruction. No mucosal thickening. PELVIS: Appendix: There are surgical clips in the right lower quadrant. The appendix is not visible and may have been removed. There is a trace amount of free fluid in the pelvis dependently. No acute inflammatory changes are seen involving the bowel. Bladder: Unremarkable. No mass. Reproductive: The uterus has been removed. ABDOMEN and PELVIS: Intraperitoneal space: See above. Bones/joints: No acute fracture. No dislocation. Soft tissues: Unremarkable. Vasculature: Unremarkable. No abdominal aortic aneurysm. Lymph nodes: Unremarkable. No enlarged lymph nodes. IMPRESSION: 1. The gallbladder has been removed. No biliary duct dilation or choledocholithiasis is seen. Trace right pleural effusion measuring a few millimeters. 2. There are surgical clips in the right lower quadrant. The appendix is not visible and may have been removed. There is a trace amount of free fluid in the pelvis dependently. No acute inflammatory changes are seen involving the bowel. Electronically signed by: Tito Gaytan MD 12/20/22 19:32 PM Chest CTA 12/20/22 17:09 Exam(s): CTA CHEST IV Amt: 111 ml optiray 320 EXAM: CT Angiography Chest With Intravenous Contrast CLINICAL HISTORY: Reason for exam: PE. TECHNIQUE: Axial computed tomographic angiography images of the chest with intravenous contrast. CTDI is 70 mGy and DLP is 2423.33 mGy-cm. Automated exposure control was utilized for the study. A dose lowering technique was utilized adhering to the principles of ALARA. MIP reconstructed images were created and reviewed. COMPARISON: No relevant prior studies available. FINDINGS: Pulmonary arteries: The pulmonary arterial tree is well opacified with contrast. No pulmonary emboli are identified. Aorta: The thoracic aorta is nondilated. There is no aneurysm or dissection. Lungs: Trace amount of dependent subsegmental atelectasis. The lungs are otherwise clear. No acute focal infiltration or consolidation is seen. Slight bronchial wall thickening suggest possible mild bronchitis. Pleural space: Trace bilateral pleural effusions measuring 2-3 mm. This is nonspecific. No pneumothorax. Heart: Unremarkable. No cardiomegaly. No significant pericardial effusion. No evidence of RV dysfunction. Bones/joints: Mild degenerative changes in the spine. No fracture or subluxation. Soft tissues: Unremarkable. Lymph nodes: Unremarkable. No enlarged lymph nodes. IMPRESSION: 1. Trace amount of dependent subsegmental atelectasis. The lungs are otherwise clear. No acute focal infiltration or consolidation is seen. Slight bronchial wall thickening suggest possible mild bronchitis. 2. The pulmonary arterial tree is well opacified with contrast. No pulmonary emboli are identified. 3. The thoracic aorta is nondilated. There is no aneurysm or dissection. Electronically signed by: Tito Gaytan MD 12/20/22 19:34 PM Cholangiopancreatography MRI 12/21/22 11:41 Exam(s): MRI MRCP EXAM: MR Abdomen Without Intravenous Contrast, MRCP Protocol CLINICAL HISTORY: Reason for exam: RUQ pain, biliary colic type, r/o choledocholithiasis. TECHNIQUE: Multiplanar magnetic resonance images of the abdomen without intravenous contrast using MRCP protocol. COMPARISON: CT abdomen/pelvis on 12/20/2022 FINDINGS: Lower thorax: Trace bilateral pleural effusions. Bile ducts: Unremarkable. No significant biliary dilatation or choledocholithiasis. Gallbladder: Status post cholecystectomy. Liver: Unremarkable. Pancreas: Unremarkable. No ductal dilation. Spleen: Unremarkable. No splenomegaly. Adrenals: Unremarkable. No mass. Kidneys and ureters: Unremarkable. No hydronephrosis. Stomach and bowel: Evaluation of the stomach is limited by underdistention. IMPRESSION: 1. Status post cholecystectomy. No significant biliary dilatation or choledocholithiasis. 2. Trace bilateral pleural effusions. Electronically signed by: Jyoti Sharma M.D. 12/21/22 20:06 PM Ordered Studies 12/20/22 17:07 CT abd pelvis IV con only Stat 12/20/22 17:09 CT angio chest PE protocol Stat 12/21/22 11:41 MR MRCP Routine Hospital Course (1) Intractable right upper quadrant abdominal pain: 42-year-old female with past med significant for allergic rhinitis, varicose veins of lower extremity, adjustment disorder with depression, presents with severe abdominal pain going on since last . Initially the pain was on and off in the right upper quadrant and epigastric region but now its severe and persistent. Right upper quadrant and epigastric abdominal pain DD: Constipation, musculoskeletal --CT ABD:The gallbladder has been removed. No biliary duct dilation or choledocholithiasis is seen. Trace right pleural effusion measuring a few millimeters. There are surgical clips in the right lower quadrant. The appendix is not visible and may have been removed. There is a trace amount of free fluid in the pelvis dependently. No acute inflammatory changes are seen involving the bowel. --MRCP:Status post cholecystectomy. No significant biliary dilatation or choledocholithiasis. Trace bilateral pleural effusions. --Chest CTA:Trace amount of dependent subsegmental atelectasis. The lungs are otherwise clear. No acute focal infiltration or consolidation is seen.Slight bronchial wall thickening suggest possible mild bronchitis. The pulmonary arterial tree is well opacified with contrast. No pulmonary emboli are identified. The thoracic aorta is nondilated. There is no aneurysm or dissection. -- Continue Protonix Monitor LFTs Appreciate GI input Minimize IV meds as able Continue Bowel regimen Tolerated low fiber diet Abdominal pain resolved Plan to be discharged home today Depression continue home meds Allergic rhinitis On Zyrtec DVT Px: SCDs for now Code Status Full code Total Time Total Time Spent Total Time Spent (In Minutes): 45 minutes Discharge Plan Discharge Items Patient Disposition: Home - Self-Care Reason For Visit: ADB PAIN Discharge Diagnosis: Abdominal pain Constipation Activity: Per Instructions section Exercise/Sports: Gradually increase as tolerated Non-emergency contact: Primary Care Provider Call non-emergency contact if: you have any medication questions, your symptoms worsen, your pain is concerning for you and you have a fever Follow-up/Referrals: Buddy Banuelos CRNP [Nurse Practitioner] - (The GI office will contact you for follow up appointment/testing.) Jaya Simpson DO [Primary Care Provider] - (Date & Time 12/29/2022 9:00 AM Provider Jaya Simpson DO [facility] ) Diet: Low Fiber Addtl Attending Provider Instructions: Follow-up with your primary care physician Dr. Jaya Simpson on 12/29/2022 9:00 AM Follow-up with your track layer Buddy COURTNEY as needed Seek immediate medical attention if your symptoms reoccur or worsen Please take all medications as instructed on discharge list below. Please call if you have any questions or problems. You can reach a [facility] hospitalist on duty at [facility] 24 hours a day by calling [phone] Pending Studies at Discharge: No Stand-Alone Forms: [facility] [employer], Smoking Cessation Medications and DC Order Prescriptions: New polyethylene glycol 3350 [Miralax] 17 gram Powder In Packet 17 g PO DAILY PRN (Reason: constipation) Qty: 30 0RF docusate sodium [Col-Rite] 100 mg capsule 100 mg PO BID PRN (Reason: constipation ) Qty: 60 0RF pantoprazole [Protonix] 40 mg tablet,delayed release (DR/EC) 40 mg PO DAILY Qty: 30 0RF Continued melatonin 5 mg Tablet, Ir And Er, Biphasic 5 mg PO HS cetirizine [Zyrtec] 10 mg Tablet 10 mg PO QAM trazodone 50 mg Tablet 75 mg PO HS citalopram 10 mg tablet 20 mg PO QAM Discharge Orders: Discharge Order (Routine); Ordered 12/23/22 Ordered By: Edward Perez Admission Data Admit Date/Time: 12/21/22 00:22 Attending Provider: Edward Perez Admit Provider: Vinicio Perez Primary Care Provider: Jaya Simpson Other Providers: Vinicio Perez; Buddy Banuelos; Jose J Howard; Justyna Walters; Zakia Vidal; Azucena De Los Santos; Anabela Swartz; Domingo Kirby; Kian Monaco; Umair Self; Hallie Gray; Radha Faith; Cristi Mccall; Danielle Hickey; Argelia De Leon; Annie Wright; Christie Hernandez; Chad Maynard; Dilan Mackey; Bennie Aguilar; lEizabeth Polk; Mohsen Khoury Jr
== END 2022-12-23 17:02 | disposition home or self-care (01) ==
LOC: EDINP 16:51 → ED 16:51 → SUATTDRO 12-21 00:22 → 3N 12-21 13:58